=== PATIENT | male | born 1945 | race Caucasian/White ===

== ENCOUNTER 2017-02-26 19:28 | Inpatient (IN) | payer MEDICARE ==
[2017-02-26] MEDS ORDERED: HYDROmorphone 1 MG/ML 1 ML SYRINGE IVP STA (19:46)
--- NOTE | 2017-02-26 19:50 | ED ---
General Adult HPI - General Chief complaint: Fall Stated complaint: Fell, hip injury Source: patient, EMS, RN notes reviewed Mode of arrival: EMS Limitations: no limitations - History of Present Illness Initial comments: Chief complaint history of present illness a 71-year-old male reports that he was climbing down a ladder when he fell from the second rung. He managed to keep his balance for about 10 feet and then fell onto his left hip area. Denies loss of consciousness. No chest pain no other extremity problems just left hip area. Patient is brought emergency room by ambulance alert and oriented - Related Data Home Medications Medication Instructions Recorded Confirmed ALPRAZolam [Xanax] 0.5 mg PO HS 02/26/17 02/26/17 Aspirin EC [Ecotrin Low Dose] 81 mg PO Q48H 02/26/17 02/26/17 Lisinopril-Hctz 20-12.5 mg 1 tab PO DAILY 02/26/17 02/26/17 [Zestoretic 20-12.5] Simvastatin [Zocor] 20 mg PO HS 02/26/17 02/26/17 Tamsulosin HCl [Flomax] 0.4 mg PO BID 02/26/17 02/26/17 Zolpidem [Ambien] 10 mg PO HS 02/26/17 02/26/17 Allergies Allergy/AdvReac Type Severity Reaction Status Date / Time No Known Allergies Allergy Unverified 02/26/17 19:58 Review of Systems ROS Statement: Those systems with pertinent positive or pertinent negative responses have been documented in the HPI. Review of systems patient denies any visual acuity changes no headache no stiff neck no chest pain or shortness of breath approximately is and right lower extremity normal. He has discomfort to the left hip area. No pain to the back. No pain from the mid femur down the left leg. All systems are reviewed. Past medical problems hypertension, diverticulitis, hypercholesterolemia. Surgeries total right knee. Cancers include brain and bone cancer in the family. Nonsmoker. No ALLERGIES. ROS Other: All systems not noted in ROS Statement are negative. Past Medical History Past Medical History: Hypertension Additional Past Medical History / Comment(s): diveticulosis, hyperchoestremia History of Any Multi-Drug Resistant Organisms: None Reported Past Surgical History: Orthopedic Surgery Additional Past Surgical History / Comment(s): tonsils, vasectomy Past Psychological History: No Psychological Hx Reported Smoking Status: Never smoker Past Alcohol Use History: None Reported Past Drug Use History: None Reported General Exam - General Exam Comments Initial Comments: General: The patient is awake and alert, placed on a backboard brought to emergency by EMS. Complains of left hip area pain. Eye: Pupils are equal, round and reactive to light, extra-ocular movements are intact ; there is normal conjunctiva bilaterally. No signs of icterus. Ears, nose, mouth and throat: There are moist mucous membranes and no oral lesions. Neck: The neck is supple, there is no tenderness or JVD. Cardiovascular: There is a regular rate and rhythm. No murmur, rub or gallop is appreciated. Respiratory: Lungs are clear to auscultation, respirations are non-labored, breath sounds are equal. No wheezes, stridor, rales, or rhonchi. Gastrointestinal: Soft, non-distended, non-tender abdomen without masses or organomegaly noted. There is no rebound or guarding present. No CVA tenderness. Bowel sounds are unremarkable. Back: There is no tenderness to palpation in the midline. There is no obvious deformity. No rashes noted. Musculoskeletal: Upper extremities normal back no pain. Right lower extremity normal. The patient has pain to the left hip area. Passive range of motion no pain. When the patient actively tries to abduct his leg it hurts. Neurovascular status to the foot intact. Neurological: CN II-XII intact, There are no obvious motor or sensory deficits. Coordination appears grossly intact. Speech is normal. Skin: Skin is warm and dry and no rashes or lesions are noted. Limitations: no limitations Course Vital Signs 02/26/17 19:34 Temperature 97.8 F Pulse Rate 90 Respiratory 18 Rate Blood Pressure 137/78 O2 Sat by Pulse 95 Oximetry Medical Decision Making - Medical Decision Making Medical decision making; patient had an x-ray of his left hip and pelvis. The left hip shows evidence of a left femoral neck fracture with minimal displacement per Dr. Goldman. Chest x-ray was done and his impression of that is no acute process. As read by Dr. Goldman. The case discussed with Heidi Holder physician's esol teacher assistant on-call for orthostatic she has who the patient uses for orthopedic problems. She states admit the patient to Dr. Jason lópez off, and when necessary after midnight. Stop aspirin products. Request for surgical clearance from Dr. Salas. Nothing by mouth after midnight. Disposition Clinical Impression: Closed left hip fracture Disposition: ADMITTED IP TO THIS HOSP Condition: Stable
--- NOTE | 2017-02-26 20:26 | XR ---
EXAMINATION TYPE: XR chest 1V DATE OF EXAM: 02/26/2017 8:18 PM COMPARISON: Prior chest x-ray 16 September 2010 HISTORY: Pain, fall TECHNIQUE: frontal view of the chest is obtained on 2 images. FINDINGS: There is no focal air space opacity, pleural effusion, or pneumothorax seen. The cardiac silhouette size is within normal limits. Lung volumes are lower. The osseous structures are intact. IMPRESSION: No acute process.
--- NOTE | 2017-02-26 20:27 | XR ---
EXAMINATION TYPE: XR Hip LT and AP Pelvis DATE OF EXAM: 02/26/2017 8:19 PM COMPARISON: CT abdomen pelvis second of February 2014 HISTORY: Trauma and pain TECHNIQUE: A single AP view of the pelvis is obtained. Two views of the left hip are obtained. FINDINGS: There is a transverse fracture through the left femoral neck without significant displaceme nt. No dislocation. Degenerative disc changes in the visualized spine. IMPRESSION: Left femoral neck fracture is not significantly displaced.
[2017-02-26] MEDS ORDERED: NALOXONE 0.4 MG/ML 1 ML VIAL IV PRN (20:37)
[2017-02-26] MEDS ORDERED: ONDANSETRON 4 MG/2 ML VIAL IVP PRN (20:37)
[2017-02-26 21:28] LABS: Basophils # (A) 0.1 k/uL (0-0.2); Basophils % (A) 1 %; CH 33.5; CHCM 33.7; Eosinophils # (A) 0.1 k/uL (0-0.7); Eosinophils % (A) 2 %; HCT 45.2 % (39.0-53.0); HDW 2.47; HGB 14.9 gm/dL (13.0-17.5); Luc # (Auto) 0.16; Luc % (Auto) 2; Lymphocytes % (A) 14 %; MCH 32.9 pg (25.0-35.0); MCV 99.5 fL (80.0-100.0); Mean Platelet Volume 6.7; Monocytes # (A) 0.5 k/uL (0-1.0); Monocytes % (A) 7 %; Neutrophils # (A) 5.1 k/uL (1.3-7.7); Neutrophils % (A) 74 %; RBC 4.54 m/uL (4.30-5.90); RDW 13.4 % (11.5-15.5); WBC 6.9 k/uL (3.8-10.6); WBC (Perox) 7.04
[2017-02-26 21:33] LABS: INR 1.4 (<1.1); Prothrombin Time 13.7 sec (9.0-12.0)
[2017-02-26 21:37] LABS: ALT 48 U/L (21-72); AST 38 U/L (17-59); Alkaline Phosphatase 81 U/L (38-126); Anion Gap 9 mmol/L; Blood Urea Nitrogen 25 mg/dL (9-20); Calcium 8.5 mg/dL (8.4-10.2); Carbon Dioxide 27 mmol/L (22-30); Chloride 110 mmol/L (98-107); Glucose 94 mg/dL (74-99); Non-African American GFR(MDRD) 60 (>60 ml/min/1.73 sqM); Potassium 4.1 mmol/L (3.5-5.1); Sodium 146 mmol/L (137-145); Total Bilirubin 0.6 mg/dL (0.2-1.3); Total Protein 6.1 g/dL (6.3-8.2)
[2017-02-26] MEDS: HYDROmorphone 1 MG/ML 1 ML SYRINGE IV PRN (23:03)
[2017-02-26] MEDS: ALPRAZolam 0.5 MG TAB PO SCH (23:03)
[2017-02-26] MEDS: SODIUM CHLORIDE 0.9% 1,000 ML IV SCH (23:04)
[2017-02-27] MEDS: HYDROmorphone 1 MG/ML 1 ML SYRINGE IV PRN ×4 (03:52→12:39)
--- NOTE | 2017-02-27 08:54 | P.HPOR ---
<Heidi Holder - Last Filed: 02/27/17 08:49> History of Present Illness H&P Date: 02/27/17 Chief Complaint: Left hip fracture This is a 71-year-old male who presents to the emergency department yesterday after falling off a ladder, sustaining injury to his left hip. On exam and x- ray in the emergency department he is found to have a left hip fracture. We're consulted for orthopedic evaluation. He denies head or neck injury. Past Medical History Past Medical History: Hypertension Additional Past Medical History / Comment(s): diveticulosis, hyperchoestremia. gallbladder removal History of Any Multi-Drug Resistant Organisms: None Reported Past Surgical History: Cholecystectomy, Orthopedic Surgery Additional Past Surgical History / Comment(s): tonsils, vasectomy Past Anesthesia/Blood Transfusion Reactions: No Reported Reaction Past Psychological History: No Psychological Hx Reported Smoking Status: Never smoker Past Alcohol Use History: None Reported Past Drug Use History: None Reported - Past Family History Father Family Medical History: Coronary Artery Disease (CAD) Mother Family Medical History: No Reported History Medications and Allergies Home Medications Medication Instructions Recorded Confirmed Type ALPRAZolam [Xanax] 0.5 mg PO HS 02/26/17 02/26/17 History Aspirin EC [Ecotrin Low Dose] 81 mg PO Q48H 02/26/17 02/26/17 History Lisinopril-Hctz 20-12.5 mg 1 tab PO DAILY 02/26/17 02/26/17 History [Zestoretic 20-12.5] Simvastatin [Zocor] 20 mg PO HS 02/26/17 02/26/17 History Tamsulosin HCl [Flomax] 0.4 mg PO BID 02/26/17 02/26/17 History Zolpidem [Ambien] 10 mg PO HS 02/26/17 02/26/17 History Allergies Allergy/AdvReac Type Severity Reaction Status Date / Time No Known Allergies Allergy Unverified 02/26/17 19:58 Physical Examination This is a 71-year-old male in no acute distress. He is alert and oriented 3. His is present at bedside. Exam of the head neck reveal no obvious deformities. He has full cervical spine motion without difficulty or pain. The patient will cervical spine or paraspinal musculature. Exam of the lower extremities reveals no obvious deformity. He is lying on his right side with the hips in flexion. There is pain with any motion of the left hip. He has full foot and ankle motion without difficulty or pain. Neurovascular status to the lower extremities is intact. Results X-rays of the pelvis and left hip reveal a minimally displaced femoral neck fracture. No other fractures identified. - Labs Labs: Abnormal Lab Results - Last 24 Hours (Table) 02/26/17 02/26/17 Range/Units 21:12 21:12 PT 13.7 H (9.0-12.0) sec Sodium 146 H (137-145) mmol/L Chloride 110 H (98-107) mmol/L BUN 25 H (9-20) mg/dL Total Protein 6.1 L (6.3-8.2) g/dL H & H 02/26/17 Range/Units 21:12 Hgb 14.9 (13.0-17.5) gm/dL Hct 45.2 (39.0-53.0) % Coagulation 02/26/17 Range/Units 21:12 INR 1.4 (<1.1) Result Diagrams: 02/26/17 21:12 02/26/17 21:12 Assessment and Plan (1) Fracture of femoral neck, left Status: Acute Plan: The clinical and x-ray findings are discussed the patient. It is recommended that he undergo hemiarthroplasty of the left hip. The procedures been discussed in detail including the possible risks and outcomes of surgery. Risks include bleeding, infection, risk of blood clots and complications associated with anesthesia. After discussion and consideration the patient elects proceed with hemiarthroplasty of the left hip. We are awaiting preoperative clearance by Dr. Salas. I will also asked Dr. Salas to manage anticoagulation postoperatively due to the patient's history of GI bleed after orthopedic surgery. <Laisha Dejesus - Last Filed: 02/27/17 14:37> Physical Examination Osteopathic Statement: *. No significant issues noted on an osteopathic structural exam other than those noted in the History and Physical/Consult. Results - Labs Labs: Abnormal Lab Results - Last 24 Hours (Table) 02/26/17 02/26/17 Range/Units 21:12 21:12 PT 13.7 H (9.0-12.0) sec Sodium 146 H (137-145) mmol/L Chloride 110 H (98-107) mmol/L BUN 25 H (9-20) mg/dL Total Protein 6.1 L (6.3-8.2) g/dL H & H 02/26/17 Range/Units 21:12 Hgb 14.9 (13.0-17.5) gm/dL Hct 45.2 (39.0-53.0) % Coagulation 02/26/17 Range/Units 21:12 INR 1.4 (<1.1) Result Diagrams: 02/26/17 21:12 02/26/17 21:12 Assessment and Plan Plan: The patient is seen and examined today at bedside. I agree with the history and physical as stated above. The patient is not having new complaints other than his left hip today. We discussed the issues with his history of gastric ulcers in the past in terms of his postoperative anticoagulation as well. We discussed the risk of occasions alternatives and benefits of various treatment options is related to his surgery we discussed the risks of bleeding risk of infection risk and need for further surgery risk of decreased loss of motion loss of function hardware failure dislocation heart attack and as well as the fact that surgery may not alleviate his symptoms were explained. The patient is interested in proceeding with surgical intervention with left hip hemiarthroplasty has discussed and a signed informed consent. He's been cleared by medicine service and I discussed the case with them as well.
[2017-02-27] MEDS: SODIUM CHLORIDE 0.9% 1,000 ML IV SCH ×3 (09:44→22:28)
[2017-02-27] MEDS: LISINOPRIL-HCTZ 20-12.5 MG 1 EACH TAB PO SCH (09:46)
[2017-02-27] MEDS: PANTOPRAZOLE 40 MG/10 ML VIAL IV SCH (09:46)
[2017-02-27] MEDS: ENOXAPARIN 40 MG/0.4 ML SYRINGE SQ SCH (10:29)
--- NOTE | 2017-02-27 12:52 | CONS ---
DATE OF CONSULTATION: 02/27/2017 REASON FOR CONSULTATION: Medical management requested Dr. Dejesus. CONSULTATION: This is a very pleasant 71-year-old patient of Dr. Canales. Patient's chronic stable medical conditions include hypertension, diverticulosis, hyperlipidemia, chronic insomnia, and BPH. Patient was working up on the ladder and took of fall, falling on his left side with a fracture of the left femur. Patient was seen by Dr. Dejesus from Orthopedics, due to go down for surgery this afternoon. Patient is rather active, able to get around pretty well. Sometimes get short of breath on walking one or two flight of stairs. No chest pain. Patient is rather active. Patient had a stress test 7 years ago. A cardiac cath about 12 years ago showed about 30% blockage. No further issues then. Otherwise, lying in bed comfortable. REVIEW OF SYSTEMS: CONSTITUTIONAL: None. HEENT: None. RESPIRATORY: None. CARDIOVASCULAR: None. GASTROINTESTINAL: None. GENITOURINARY: BPH symptoms. DERMATOLOGICAL: None. HEMATOLOGICAL: None. LYMPHATICS: None. PSYCHIATRY: None. NEUROLOGICAL: Difficulty sleeping. MUSCULOSKELETAL: Pain in the left hip. Past medical history of hypertension, diverticulosis, hyperlipidemia, insomnia, BPH. PAST SURGICAL HISTORY: Cholecystectomy, orthopedic surgery, tonsillectomy, vasectomy. SOCIAL HISTORY: Does not smoke. Alcohol occasionally. , does real estate. Family history of coronary artery disease. HOME MEDICATIONS: 1. Ambien 10 mg q.h.s. 2. Flomax 0.4 p.o. b.i.d. 3. Zocor 20 mg q.h.s. 4. Zestoretic 25/10.5 one tablet p.o. daily. 5. Aspirin 81 mg q.48 hours. 6. Xanax 0.5 p.o. q.h.s. ALLERGIES: None. On examination, temperature 97, pulse 94, respirations 16, blood pressure 120/73, pulse ox 93% on room air. GENERAL APPEARANCE: Well built, BMI of 33.1, patient is well built, lying in bed, comfortable, not in distress. EYES: Pupils equal. Conjunctivae normal. HEENT: External appearance of nose and ears, oral cavity normal. NECK: JVD unable to assess. Mass not palpable. Respiratory effort normal. LUNGS: Slightly distant breath sounds. CARDIOVASCULAR: First and second sounds normal. No edema. ABDOMEN: Large, soft. Liver and spleen not palpable. LYMPHATICS: No lymph node palpable in neck or axillae. PSYCHIATRY: Alert and oriented x3. Mood and affect normal. NEUROLOGICAL: Pupils equal. Cranial nerves grossly intact. Power and sensation grossly intact. MUSCULOSKELETAL: Limited range of motion on the left leg. INVESTIGATIONS: White count 6.9, hemoglobin 14.9, platelets 186. Potassium 4.1, BUN 25, creatinine 1.20. X-ray of the hip shows left femur fracture. Chest x-ray is an AP film with relative cardiomegaly. There is some venous prominence, but this could be in view of the fact that this is an AP film. ASSESSMENT: 1. Left femur fracture secondary to mechanical fall off the ladder. 2. Essential hypertension. 3. Chronic diverticulosis, asymptomatic. 4. Hyperlipidemia. 5. Chronic insomnia, idiopathic. 6. Benign prostatic hypertrophy. 7. Obesity, body mass index of 33.1. PLAN: Patient had a cardiac cath over 12 years ago, was found to have 30% obstructive disease. Patient has no cardiac symptoms, rather active, hence from a cardiopulmonary standpoint patient has a low risk from surgery, with no absolute contraindications. Patient's medications optimized. Will get a baseline EKG. Patient's home medications can be resumed. Will hold off the aspirin for right now in view of the surgery. Will give subQ Lovenox for DVT prophylaxis and then will determinate about the surgery. Patient getting some IV fluids. Care was discussed with the patient. Questions were answered. Thank you, Dr. Dejesus.
[2017-02-27] MEDS ORDERED: IV FLUID CONTINUATION 1,000 ML IV ONE (15:30)
[2017-02-27 16:27] LABS: INR 1.4 (<1.1); Partial Thromboplastin Time 24.2 sec (22.0-30.0); Prothrombin Time 13.5 sec (9.0-12.0)
[2017-02-27] MEDS ORDERED: KETAMINE 10 MG/ML 20 ML VIAL ONE (16:32)
[2017-02-27] MEDS ORDERED: MORPHINE SULFATE (PF) 0.3 MG/0.3 ML SYR ONE (16:32)
[2017-02-27] MEDS ORDERED: PHENYLEPHRINE-0.9% NACL SYG 1 MG/10 ML SYRINGE ONE (16:32)
[2017-02-27] MEDS ORDERED: fentaNYL (PF) 50 MCG/ML 2 ML AMP ONE (16:32)
[2017-02-27] MEDS ORDERED: diphenhydrAMINE 50 MG/ML 1 ML VIAL ONE (16:32)
[2017-02-27] MEDS ORDERED: MIDAZOLAM 2 MG/2 ML VIAL ONE (16:32)
[2017-02-27] MEDS ORDERED: LACTATED RINGERS 1,000 ML IV ONE ×2 (16:42→18:00)
[2017-02-27] MEDS ORDERED: SODIUM CHLORIDE 0.9% 50 ML with ceFAZolin 2,000 MG IV ONE ×2 (16:42)
[2017-02-27] MEDS ORDERED: ceFAZolin 3,000 MG in SODIUM CHLORIDE 0.9% IRRIGATIO 3,000 ML IRRIGATION ONE (17:22)
[2017-02-27] MEDS ORDERED: DIAZEPAM 5 MG TAB PO PRN (18:38)
[2017-02-27] MEDS ORDERED: NALOXONE 0.4 MG/ML 1 ML VIAL IV PRN ×2 (18:38→19:40)
[2017-02-27] MEDS ORDERED: BENZOCAINE/MENTHOL LOZENG 1 EACH LOZENGE MUCOUS MEM PRN (18:38)
[2017-02-27] MEDS ORDERED: MAGNESIUM HYDROXIDE 2,400 MG/10 ML CUP PO PRN (18:38)
[2017-02-27] MEDS ORDERED: HYDROmorphone 1 MG/ML 1 ML SYRINGE IVP PRN ×2 (18:38)
--- NOTE | 2017-02-27 18:48 | P.OP ---
Date of Procedure: 02/27/17 Preoperative Diagnosis: Left hip femoral neck fracture, acute status post all Postoperative Diagnosis: same Procedure(s) Performed: left hip hemiarthroplasty Anesthesia: spinal Pathology: other Condition: stable Disposition: PACU Description of Procedure: Preoperative diagnosis: Femoral neck fractureleft, acute status post fall Postoperative diagnosis: Same Procedure: leftHip hemiarthroplasty Surgeon: Dr. Anjelica Anderson.: Arvind Underwood who is present that the entire the case persistence during positioning dissection exposure placement of hardware and closure Anesthesia:spinal per Dr. Rodriguez Estimated blood loss:approximately 200 mL Components implanted:[employer] noncemented femoral stem size 4 unipolar with +4 neck and size 55 femoral head Disposition: To recovery room in good stable condition Operative indications The patient sustained a injury and suffered a femoral neck fracture which was displaced and angulated. he was on a ladder and was coming down a ladder and missed the last 2 steps and fell onto his left hip. He denied any chest pain shortness breath or loss consciousness. We were involved in the case in regard to his hip fracture. the fracture had some displacement and evidence of comminution and I did determined different treatment options including conservative management versus surgical fixation or hemiarthroplasty. After evaluation it was determined that they would be a candidate for hip hemiarthroplasty via surgical intervention. This would give them the best chance of mobilization and ambulation. We discussed the range of treatment options from conservative to surgical. we discussed the risks, occasions alternatives and benefits of surgery in relation to his injury. We discussed the risk of bleeding risk of infection risk of need for further surgery risk of decreased loss of motion loss of function change in ambulatory status hardware loosening dislocation possible need for revision was all explained to him all of his questions were answered to best her ability and leg which she can understand. They elected proceed with surgical intervention. We answered their questions to the best of our ability healing which they can understand. They signed an informed consent. Operative summary After obtaining informed consent evaluation by anesthesia, preoperative evaluation and clearance for medical service, the patient was identified and prepped [place] area and the surgical site was markedat the left hip. There brought to the operating room where the given appropriate anesthesia by the anesthesia department in standard fashion without any complications. under sterile technique he had a spinal anesthetic placed in standard fashion without A complications.Once the anesthesia was established we were able to position the patient. There placed in a lateral decubitus position with the operative side up on the left being careful to pad any bony prominences and pressure points and place a excellent roll appropriately. The airway and C-spine was monitored continuously. Once patient was well positioned the left lower extremitylower extremity was prepped and draped in normal standard sterile fashion. An appropriate keystone protocol and timeout was completed and were able to proceed with surgery. A curvilinear incision was established over the greater trochanter. Dissection was taken down to the tensor fascia herman which was split in line with its fibers and extended proximally into the gluteal fibers. A Charnley retractor was established. The trochanteric bursa was inflamed and removed. I was able to then dissect down off the posterior aspect of the greater trochanter taking the piriformis tendon and the posterior capsule in one full-thickness flap and tacking it with suture. This expose the fracture at the femoral neck which was easily identified.there was comminution at the femoral neck and displacement. A guide was used to establish the appropriate femoral neck cut and a bone- cutting saw was used to establish the femoral neck cut and good alignment and good position. All the bony fragments were removed. I was then able to use a corkscrew device to remove the femoral head from the acetabulum. Any loose fragments in the acetabulum were removed. The femoral head was measured for the appropriate size implant and then passed off for pathology. Appropriate retractors were placed and I established a lateral box cut chisel. I then used a starting reamer to establish the femoral canal area I then sequentially broached with sequential reamers. With this we then started to broach with sequential broaches to the appropriate sized to we had good fit and fill. There is no evidence any fracture in the possible femur. With the appropriate size broach of a #4well seated and stable I placed the trial neck and head. A gentle reduction was performed to get good reduction. The hip was taken through a good range of motion and found to be stable in the position of sleep and through a range of motion. It had a good shuck test. We were able to then dislocate the trial prosthesis. The broach was found to remain stable. It was then removed. The wound was copiously irrigated and suctioned dry with pulsatile lavage. The appropriate size femoral stem of a #4 with a +4 neck and a 55 head unipolarwas chosen and positioned and placed in good alignment and good position with excellent fit and fill seated appropriately over the calcar. It was checked and found to be stable. The trunnion was cleaned and dried the femoral head was then positioned over the femoral neck malleted in position checked and found to be stable. The hip prosthesis was then gently reduced back into the acetabulum and found to have excellent position and excellent stability and excellent range of motion with stability. There is no evidence of dislocation or fracture. The wound was copiously irrigated and suctioned dry. We are able to proceed with closure. The piriformis and posterior capsule were reapproximated to the posterior aspect of the greater trochanter with transosseous stitches. The wound was irrigated and suctioned dry. The fascia was closed with #2 Quill for watertight closure. Subcutaneous tissue was irrigated and suctioned dry. Subcu tissues closed with 2-0 Vicryl subcuticular tissue was closed with 30 Quill. Wound is clean and dried and dressed with Dermabond Adaptic 4 x 4's ABDs and tape. Drapes were broken down, the hip was held in stable position, and an abduction pillow was placed. The patient was then transferred back to their hospital bed being careful to maintain the hip and C-spine alignment and airway. Once stable to patient was transferred back to the postanesthesia care unit to be readmitted for pain control and DVT prophylaxis medical management and monitoring and mobilization we will continue follow patient closely throughout their postoperative course.
--- NOTE | 2017-02-27 18:59 | XR ---
EXAMINATION TYPE: XR Hip Complete LT DATE OF EXAM: 02/27/2017 6:53 PM CLINICAL HISTORY: Left hip fracture. TECHNIQUE: Single AP portable view of left hip is obtained immediately postoperatively. COMPARISON: Pelvic and left hip x-ray from yesterday. FINDINGS: Metallic hardware from left hip arthroplasty is seen and appears satisfactory in alignment and position. There is evidence of recent surgery with subcutaneous gas noted laterally. IMPRESSION: Metallic hardware from left hip arthroplasty is satisfactory in position.
[2017-02-27] MEDS ORDERED: KETOROLAC 30 MG/ML 1 ML VIAL IVP PRN (19:40)
[2017-02-27] MEDS ORDERED: diphenhydrAMINE 50 MG/ML 1 ML VIAL IVP PRN (19:40)
[2017-02-27] MEDS ORDERED: ONDANSETRON 4 MG/2 ML VIAL IVP PRN (19:40)
[2017-02-27] MEDS ORDERED: MORPHINE SULFATE 4 MG/ML SYRINGE IVP PRN (19:40)
[2017-02-27 21:14] LABS: Basophils % (A) 0 %; CH 33.1; CHCM 32.8; Eosinophils # (A) 0.2 k/uL (0-0.7); Eosinophils % (A) 2 %; HCT 45.4 % (39.0-53.0); HDW 2.46; Luc # (Auto) 0.16; Luc % (Auto) 2; Lymphocytes # (A) 0.8 k/uL (1.0-4.8); Lymphocytes % (A) 8 %; MCH 33.4 pg (25.0-35.0); MCHC 32.9 g/dL (31.0-37.0); MCV 101.5 fL (80.0-100.0); Macrocytosis Slight; Mean Platelet Volume 6.6; Monocytes # (A) 0.7 k/uL (0-1.0); Monocytes % (A) 7 %; Neutrophils # (A) 8.8 k/uL (1.3-7.7); Neutrophils % (A) 82 %; RBC 4.48 m/uL (4.30-5.90); RDW 13.4 % (11.5-15.5); WBC 10.7 k/uL (3.8-10.6)
[2017-02-27] MEDS: ALPRAZolam 0.5 MG TAB PO SCH (22:22)
[2017-02-27] MEDS: ZOLPIDEM 10 MG TAB PO SCH (22:23)
[2017-02-27] MEDS: TAMSULOSIN 0.4 MG CAP.ER.24H PO SCH (22:27)
[2017-02-27] MEDS: SENNOSIDES-DOCUSATE SODIUM 1 EACH TAB PO SCH (22:27)
[2017-02-27] MEDS: ATORVASTATIN 10 MG TAB PO SCH (22:34)
[2017-02-28] MEDS: ceFAZolin 3 GM in SODIUM CHLORIDE 0.9% 100 ML IVPB SCH ×2 (01:03→09:02)
[2017-02-28] MEDS ORDERED: METOPROLOL TARTRATE 50 MG TAB PO STA (08:02)
[2017-02-28] MEDS: LISINOPRIL-HCTZ 20-12.5 MG 1 EACH TAB PO SCH (08:33)
[2017-02-28] MEDS: SODIUM CHLORIDE 0.9% 1,000 ML IV SCH ×4 (08:33→21:33)
[2017-02-28] MEDS: ENOXAPARIN 40 MG/0.4 ML SYRINGE SQ SCH (08:33)
[2017-02-28] MEDS: TAMSULOSIN 0.4 MG CAP.ER.24H PO SCH ×2 (08:33→21:32)
[2017-02-28] MEDS: ASPIRIN 81 MG CHEW PO SCH (08:33)
[2017-02-28] MEDS: PANTOPRAZOLE 40 MG/10 ML VIAL IV SCH (08:33)
--- NOTE | 2017-02-28 08:46 | P.PN ---
Progress Note - Text 0750 Anesthesia POD 1. Patient is status post attempted vaginal hysterectomy and finally accomplished as a abdominal hysterectomy under general anesthesia with intra-thecal preservative free morphine 300 g. No pruritus, good post-op analgesia, and no headaches or other complications.
--- NOTE | 2017-02-28 08:53 | P.PN ---
Subjective Principal diagnosis: Status post left hip hemiarthroplasty for left femoral neck fracture Patient is a very pleasant 71-year-old male who is seen and examined at bedside for follow-up evaluation after undergoing a left hip hemiarthroplasty performed yesterday, 02/27/2017. According to Dr. Tamez, patient was in atrial fibrillation yesterday during surgical intervention. While on the 3 E. surgical floor, nursing states his atrial fibrillation became uncontrolled. He has since been transferred to care one at [facility] care on the sixth floor. Patient was seen and examined by Dr. Tamez this morning. I have discussed this patient in detail with Dr. Tamze who currently feels the patient is stable. Patient is currently waiting for a cardiac consultation. Patient states he is not experiencing any significant pain in the left hip and that his pain has been well-controlled. He has not eaten postsurgically but is looking forward to eating this morning. He is not experiencing any abdominal pain or discomfort. He states this morning his left hip feels significantly better today than it did prior to surgical intervention. He is pleasant and smiling today. He has no new complaints. He continues to use his abductor pillow. Objective - Vital Signs Vital signs: Vital Signs Temp 97.2 F L 02/28/17 07:00 Pulse 125 H 02/28/17 08:06 Resp 24 02/28/17 08:06 BP 139/88 02/28/17 07:00 Pulse Ox 92 L 02/28/17 08:06 Intake & Output 02/27/17 02/28/17 02/28/17 18:59 06:59 18:59 Intake Total 3214 825 Output Total 450 450 Balance 2764 375 Intake: IV 2651 825 Sodium Chloride 0.9% 1, 825 000 ml @ 75 mls/hr IV . [id number] TALYA Rx#:[id number] Intake, IV Titration 563 Amount Sodium Chloride 0.9% 1, 563 000 ml @ 75 mls/hr IV . [id number] TALYA Rx#:[id number] Oral 0 Output: Urine 200 450 Uretheral ([place]) 450 Estimated Blood Loss 250 Other: Voiding Method Indwelling Catheter Indwelling Catheter Indwelling Catheter - Exam Physical Exam Hip Hemiarthroplasty: Status post surgical day number 1 Patient is examined lying in bed Patient is awake, alert, and oriented 3 Vital signs stable Good chest excursion with deep inspiration and expiration Abdomen soft nontender No signs or symptoms of DVT; no calf pain Lower extremity cuffs in place bilaterally Abductor pillow intact Dressing of the left hip is clean, dry, and intact; no erythema, purulence, or signs of infection Full range of motion of ankles bilaterally Dorsiflexion, plantarflexion, and extensor hallucis longus positive sustained bilaterally Neurovascularly intact bilateral lower extremities Capillary refill less than 2 seconds bilateral lower extremities - Labs CBC & Chem 7: 02/27/17 21:03 02/26/17 21:12 Labs: Abnormal Lab Results - Last 24 Hours (Table) 02/27/17 02/27/17 Range/Units 16:05 21:03 WBC 10.7 H (3.8-10.6) k/uL MCV 101.5 H (80.0-100.0) fL Neutrophils # 8.8 H (1.3-7.7) k/uL Lymphocytes # 0.8 L (1.0-4.8) k/uL PT 13.5 H (9.0-12.0) sec Assessment and Plan (1) S/P hip hemiarthroplasty Status: Acute (2) Atrial fibrillation Status: Acute (3) Closed left hip fracture Status: Acute (4) Fracture of femoral neck, left Status: Acute Plan: Assessment: Status post left hip hemiarthroplasty for left femoral neck fracture Atrial fibrillation Plan: 1. Patient may continue to weight-bear as tolerated on the lower extremity; patient may work with physical therapy to increase mobility and ambulation 2. Continue pain control 3. Abductor pillow to remain in place at all times except while working with therapy 4. Medicine to continue following the patient for their other medical issues; medicine to manage anticoagulation therapy; currently on Lovenox 5. Patient currently waiting for consultation with cardiology for his atrial fibrillation 6. We'll continue to follow the patient 7. Patient will most likely remain in the hospital over the the next day or 2 with possible plans to discharge to rehab facility at the time of discharge once cleared by medicine and cardiology 8. Patient can follow-up with Arvind Dominique PA-C or Dr. Elvin Dejesus at [facility] in 2-3 weeks following discharge Time with Patient: Less than 30
--- NOTE | 2017-02-28 08:53 | P.PN ---
Progress Note - Text 0812 Anesthesia POD 1. Patient is status post left hemiarthroplasty hip under spinal anesthesia with intra-thecal preservative free morphine 300 g. No pruritus, excellent post-op analgesia, and no headache or other complications. Patient was transferred to telemetry this morning presumably is due to his A. fib. He is scheduled for a cardiac workup. It should be noted that he was in atrial fib preoperatively with a well-controlled ventricular response and did quite well perioperatively.
--- NOTE | 2017-02-28 11:03 | P.CRDCN ---
History of Present Illness Consult date: 02/28/17 Requesting physician: Laisha Dejesus Consult reason: atrial fibrillation Chief complaint: Fall History of present illness: This is a pleasant 71-year-old gentleman with history of hypertension , hyperlipidemia, prior GI bleeds, who initially presented to the hospital after experiencing a fall off of a ladder. Patient incurred a left hip fracture for which he underwent surgery yesterday by Dr. Garg. EKG performed before surgery showed atrial fibrillation with a controlled ventricular response , patient continued to be in atrial fibrillation postoperatively, heart rate in the 120s, for this reason he was sent to the telemetry unit for postop monitoring. According to the patient, he has no prior documented history of atrial fibrillation, he does state that on occasion he has noted on his blood pressure cuff at home that his heart was beating irregularly. Patient states he has undergone a heart catheterization approximately 10 years ago which was reported to be normal, he does not follow with a corporate law assistant, his primary care doctor is Dr. Canales. Initial EKG shows atrial fibrillation with a controlled ventricular response, subsequent EKG performed this morning shows atrial fibrillation with mildly rapid ventricular response. At the time of my examination this morning, he continues to be in A. fib ,rate 1 teens to 120s. White blood cell count 10.7, sodium 146, potassium 4.1, BUN 25, creatinine 1.2. Chest x-ray performed on admission did not reveal any acute process. The time of my examination this morning, patient is quite comfortable, denies any palpitations or shortness of breath. Minimal pain in the hip area today. Past Medical History Past Medical History: Hypertension Additional Past Medical History / Comment(s): diveticulosis, hyperchoestremia. gallbladder removal History of Any Multi-Drug Resistant Organisms: None Reported Past Surgical History: Cholecystectomy, Orthopedic Surgery Additional Past Surgical History / Comment(s): tonsils, vasectomy Past Anesthesia/Blood Transfusion Reactions: No Reported Reaction Past Psychological History: No Psychological Hx Reported Smoking Status: Never smoker Past Alcohol Use History: None Reported Past Drug Use History: None Reported - Past Family History Father Family Medical History: Coronary Artery Disease (CAD) Mother Family Medical History: No Reported History Medications and Allergies Home Medications Medication Instructions Recorded Confirmed Type ALPRAZolam [Xanax] 0.5 mg PO HS 02/26/17 02/26/17 History Aspirin EC [Ecotrin Low Dose] 81 mg PO Q48H 02/26/17 02/26/17 History Lisinopril-Hctz 20-12.5 mg 1 tab PO DAILY 02/26/17 02/26/17 History [Zestoretic 20-12.5] Simvastatin [Zocor] 20 mg PO HS 02/26/17 02/26/17 History Tamsulosin HCl [Flomax] 0.4 mg PO BID 02/26/17 02/26/17 History Zolpidem [Ambien] 10 mg PO HS 02/26/17 02/26/17 History Allergies Allergy/AdvReac Type Severity Reaction Status Date / Time No Known Allergies Allergy Unverified 02/26/17 19:58 Physical Exam Vitals: Vital Signs Temp Pulse Pulse Resp BP Pulse Ox 02/28/17 08:06 125 H 24 92 L 02/28/17 08:00 98.1 F 153 H 118 H 24 127/77 94 L 02/28/17 07:40 24 02/28/17 07:00 97.2 F L 133 H 16 139/88 90 L 02/28/17 04:00 92 L 02/28/17 03:00 99.8 F H 16 137/77 92 L 02/28/17 00:40 92 L 02/27/17 22:00 130/68 02/27/17 21:45 116/70 02/27/17 21:30 121/61 02/27/17 21:15 120/58 02/27/17 21:00 126/66 02/27/17 20:45 121/60 02/27/17 20:40 94 L 02/27/17 20:30 129/69 02/27/17 20:15 128/62 02/27/17 20:00 96.9 F L 100 16 135/74 90 L 02/27/17 19:34 86 16 115/65 92 L 02/27/17 19:00 87 18 115/76 96 02/27/17 18:45 85 18 101/70 93 L 02/27/17 18:36 98.1 F 91 14 97/66 100 02/27/17 15:37 98.2 F 99 16 151/95 96 02/27/17 15:31 98.7 F 86 16 137/83 93 L Intake and Output 02/27/17 02/28/17 02/28/17 22:59 06:59 14:59 Intake Total 2876 600 100 Output Total 450 450 Balance 2426 150 100 Intake: IV 2876 600 Sodium Chloride 0.9% 1, 225 600 000 ml @ 75 mls/hr IV . [id number] TALYA Rx#:[id number] Intake, IV Titration 100 Amount ceFAZolin 3 gm In Sodium 100 Chloride 0.9% 100 ml @ 100 mls/hr IVPB Q8HR TALYA Rx#:[id number] Output: Urine 200 450 Uretheral ([place]) 450 Estimated Blood Loss 250 Other: Voiding Method Indwelling Catheter Indwelling Catheter PHYSICAL EXAMINATION: HEENT: Head is atraumatic, normocephalic. Pupils equal, round. Neck is supple. There is no elevated jugular venous pressure. HEART EXAMINATION: Heart S1 and S2 irregularly irregular CHEST EXAMINATION: Lungs are clear to auscultation and precussion. No chest wall tenderness is noted on palpation or with deep breathing. ABDOMEN: Soft, nontender. Bowel sounds are heard. No organomegaly noted. EXTREMITIES: 2+ peripheral pulses with no evidence of peripheral edema and no calf tenderness noted. Dressing to the left hip is clean and dry and intact, abductor pillow in place. NEUROLOGIC patient is awake, alert and oriented -3. . Results 02/27/17 21:03 02/26/17 21:12 Coagulation 02/27/17 Range/Units 16:05 PT 13.5 H (9.0-12.0) sec APTT 24.2 (22.0-30.0) sec CBC 02/27/17 Range/Units 21:03 WBC 10.7 H (3.8-10.6) k/uL RBC 4.48 (4.30-5.90) m/uL Hgb 15.0 (13.0-17.5) gm/dL Hct 45.4 (39.0-53.0) % Plt Count 180 (150-450) k/uL Current Medications Generic Name Dose Route Start Last Admin Trade Name Freq PRN Reason Stop Dose Admin Hydrocodone Bitart/Acetaminophen 1 each 02/27/17 18:38 [place] 5-325 PO Q6HR PRN Pain Scale 1 to 5 Hydrocodone Bitart/Acetaminophen 2 each 02/27/17 18:38 [place] 5-325 PO Q6HR PRN Pain Scale 6 to 10 Alprazolam 0.5 mg 02/26/17 21:00 02/27/17 22:22 Xanax PO Not Given HS [facility] Aspirin 81 mg 02/28/17 09:00 02/28/17 08:33 Aspirin PO 81 mg Q48H TALYA Administration Atorvastatin Calcium 10 mg 02/27/17 21:00 02/27/17 22:34 Lipitor PO 10 mg HS [facility] Administration Benzocaine/Menthol 1 each 02/27/17 18:38 Cepacol Lozenge MUCOUS MEM Q4HR PRN Sore Throat Diazepam 5 mg 02/27/17 18:38 Valium PO QID PRN Anxiety Diphenhydramine HCl 25 mg 02/27/17 19:40 Benadryl IVP 02/28/17 19:41 Q6HR PRN Itching Enoxaparin Sodium 40 mg 02/27/17 10:30 02/28/17 08:33 Lovenox SQ 40 mg DAILY [facility] Administration Lisinopril/HCTZ 1 each 02/27/17 09:00 02/28/17 08:33 Zestoretic 20-12.5 PO 1 each DAILY [facility] Administration Hydromorphone HCl 0.5 mg 02/27/17 18:38 Dilaudid IVP Q4HR PRN Pain Hydromorphone HCl 1 mg 02/27/17 18:38 Dilaudid IVP Q4HR PRN Pain Sodium Chloride 1,000 mls @ 75 mls/hr 02/26/17 20:45 02/27/17 22:28 Saline 0.9% IV 75 mls/hr .[id number] [facility] Administration Sodium Chloride 1,000 mls @ 75 mls/hr 02/27/17 18:45 02/28/17 08:33 Saline 0.9% IV Not Given .[id number] [facility] Ketorolac Tromethamine 15 mg 02/27/17 19:40 Toradol IVP 02/28/17 19:41 Q6HR PRN Breakthrough Pain Magnesium Hydroxide 2,400 mg 02/27/17 18:38 Milk Of Magnesia PO DAILY PRN Constipation Naloxone HCl 0.2 mg 02/27/17 19:40 Narcan IV Q2M PRN Opioid Reversal Ondansetron HCl 4 mg 02/27/17 19:40 Zofran IVP 02/28/17 19:41 Q6HR PRN Nausea And Vomiting Pantoprazole Sodium 40 mg 02/27/17 09:00 02/28/17 08:33 Protonix IV 40 mg DAILY [facility]ALYA Administration Senna/Docusate Sodium 2 each 02/27/17 21:00 02/27/17 22:27 Senokot-S PO 2 each HS [facility]ALYA Administration Tamsulosin HCl 0.4 mg 02/27/17 21:00 02/28/17 08:33 Flomax PO 0.4 mg BID TALYA Administration Zolpidem Tartrate 10 mg 02/27/17 21:00 02/27/17 22:23 Ambien PO Not Given HS TALYA Intake and Output 02/27/17 02/28/17 02/28/17 22:59 06:59 14:59 Intake Total 2876 600 100 Output Total 450 450 Balance 2426 150 100 Intake: IV 2876 600 Sodium Chloride 0.9% 1, 225 600 000 ml @ 75 mls/hr IV . [id number] TALYA Rx#:[id number] Intake, IV Titration 100 Amount ceFAZolin 3 gm In Sodium 100 Chloride 0.9% 100 ml @ 100 mls/hr IVPB Q8HR TALYA Rx#:[id number] Output: Urine 200 450 Uretheral ([place]) 450 Estimated Blood Loss 250 Other: Voiding Method Indwelling Catheter Indwelling Catheter 02/27/17 21:03 02/26/17 21:12 EKG Interpretations (text) EKG shows atrial fibrillation with moderately rapid ventricular response Assessment and Plan Plan: Assessment and plan #1 atrial fibrillation, unsure exactly of duration. Chronic persistent at this time. #2 status post left hip arthroplasty #3 hypertension #4 hyperlipidemia #5 prior GI bleeds, patient was told to have significant diverticulitis Plan We will continue current dose of Lovenox. We will also check to see if the patient has coverage for [employer]. We will start the patient on a beta sukhi. Patient and were educated regarding the importance of anticoagulation for stroke prevention. According to the patient and his , patient did take Coumadin following a hip surgery a couple of years ago, at which time he experienced a significant GI bleed. One year ago, not being on blood thinners, patient apparently again had a GI bleed. We will attempt to get reports of EGD and colonoscopy performed. We will also consult Dr. Sawyer Peres prior to initiating request. Patient and the do understand the risk of GI bleeding being put on an anticoagulant, they also understand the risk of stroke and not being on blood thinners. If the patient is not a candidate for anticoagulation , he may be a candidate for the watchman device. We'll also check the patient' s free T4 and TSH level. DNP note has been reviewed, I agree with a documented findings and plan of care. Patient was seen and examined.
[2017-02-28] MEDS ORDERED: METOPROLOL TARTRATE 25 MG TAB PO SCH (11:15)
[2017-02-28] MEDS: HYDROcodone/APAP 5-325MG 1 EACH TAB PO PRN ×2 (17:41→23:56)
[2017-02-28] MEDS: ZOLPIDEM 10 MG TAB PO SCH (21:20)
[2017-02-28] MEDS: SENNOSIDES-DOCUSATE SODIUM 1 EACH TAB PO SCH (21:32)
[2017-02-28] MEDS: ATORVASTATIN 10 MG TAB PO SCH (21:32)
[2017-02-28] MEDS: ALPRAZolam 0.5 MG TAB PO SCH (21:32)
--- NOTE | 2017-02-28 23:00 | PN ---
DATE OF SERVICE: 02/28/2017 DATE OF ADMISSION: 02/26/2017 PRESENTING COMPLAINT: Fracture of the left femur. INTERVAL HISTORY: This is a pleasant 71-year-old gentleman with a history of hypertension, hyperlipidemia, prior GI bleeds who presented to the hospital after experiencing after a fall off of a ladder. The patient was found to have a fracture of the left hip for which he underwent surgery on 02/27/[address] Dejesus. Prior to surgery, the patient was noted to have atrial fibrillation and was subsequently sent to a telemetry unit for postoperative management. The patient is lying in bed, comfortable. Pain is well controlled. No acute distress noted or voiced. REVIEW OF SYSTEMS: Review of systems done for constitutional, cardiovascular, GI, pulmonary and relevant findings above. Current medications include: 1. [place] 5/325, 1 tab every 6 hours. 2. Xanax 0.5 mg at bedtime. 3. 81-mg aspirin every 48 hours. 4. Atorvastatin calcium 10 mg at bedtime. 5. Diazepam 5 mg 4 times a day for anxiety. 6. Diphenhydramine 25 mg every 6 hours for itching. 7. Enoxaparin sodium 40 mg subcu daily for DVT prophylaxis. 8. Lisinopril/hydrochlorothiazide 1 tab daily. 9. Hydromorphone 0.5 mg IV push every 4 hours for pain. 10. Ketorolac 15 mg IV push every 6 hours for breakthrough pain. On exam, vital signs: Temperature 97.0, pulse 87, respirations 18, blood pressure 103/58, pulse ox 94% on 5L nasal cannula. GENERAL APPEARANCE: Awake, alert, able to answer questions, lying comfortably in bed, not in any distress. EYES: Pupils equal, conjunctivae normal. HEENT: External appearance of the nose, ears and oral cavity normal. NECK: JVD unable to assess. Mass is no palpable. RESPIRATORY: Effort normal. LUNGS: Slightly distant breath sounds. CARDIOVASCULAR: First and second sounds normal, irregular beats noted. No edema. ABDOMEN: Large, soft. Liver and spleen are not palpable. LYMPHATIC: No lymph nodes palpable in the neck or axillae. PSYCHIATRIC: Alert and oriented x3. Mood and affect are normal. MUSCULOSKELETAL: Limited range of motion on the left leg. INVESTIGATIONS: White blood cell count 10.7, hemoglobin 15.0, INR 1.4. Glucose within normal limits. Basic metabolic panel within normal limits. ASSESSMENT: 1. Left femur fracture secondary to mechanical fall off of a ladder, status post open reduction and internal fixation of the left femur. 2. Essential hypertension. 3. Chronic diverticulosis, asymptomatic. 4. Hyperlipidemia. 5. Chronic insomnia, idiopathic. 6. Benign prostatic hypertrophy. 7. Obesity. Body mass index of 33.1. 8. Atrial fibrillation, paroxysmal. Cardiology following. PLAN: The patient had a cardiac cath 12 years ago, had obstructive disease to be about 30%. The patient was found to be in atrial fibrillation and Cardiology was consulted to continue to follow. Will look forward to their recommendations. Will continue subcu Lovenox for DVT prophylaxis. Plan of care discussed with the patient. All questions were answered. I performed a history and physical examination of this patient and discussed the same with the dictator. I agree with the dictator's note. Any additional findings/opinions, etc. will be noted.
[2017-03-01] MEDS: ENOXAPARIN 40 MG/0.4 ML SYRINGE SQ SCH (08:38)
[2017-03-01] MEDS: TAMSULOSIN 0.4 MG CAP.ER.24H PO SCH ×2 (08:38→21:43)
[2017-03-01] MEDS: LISINOPRIL-HCTZ 20-12.5 MG 1 EACH TAB PO SCH (08:38)
[2017-03-01] MEDS: PANTOPRAZOLE 40 MG/10 ML VIAL IV SCH (08:38)
--- NOTE | 2017-03-01 10:07 | ECHOF ---
Referral Reason:afib MEASUREMENTS -------- HEIGHT: 185.4 cm WEIGHT: 120.2 kg BP: 127/77 IVSd: 1.2 cm (0.6 - 1.1) LVIDd: 3.6 cm (3.9 - 5.3) LVPWd: 1.3 cm (0.6 - 1.1) IVSs: 1.6 cm LVIDs: 2.3 cm LVPWs: 2.0 cm Ao Diam: 3.7 cm (2.0 - 3.7) AV Cusp: 2.6 cm (1.5 - 2.6) LA Diam: 4.0 cm (2.7 - 3.8) RAP: 5.00 mmHg RVSP: 15.84 mmHg FINDINGS -------- Atrial fibrillation. This was a technically difficult study with suboptimal views. There is mild concentric left ventricular hypertrophy. Overall left ventricular systolic function is low-normal with, an EF between 50 - 55 %. The right ventricle is normal in size and function. The left atrium is normal in size. The right atrium is normal in size. 1.5mg of Definity was utilized for enhancement of images Aortic valve is trileaflet and is mildly thickened. The mitral valve leaflets are mildly thickened. There is trace mitral regurgitation. Trace tricuspid regurgitation present. The right ventricular systolic pressure, as measured by Doppler, is 15.84mmHg. Pulmonic valve appears structurally normal. The aortic root size is normal. The pericardium is normal. CONCLUSIONS -------- 1. Atrial fibrillation. 2. The mitral valve leaflets are mildly thickened. 3. There is trace mitral regurgitation. 4. Trace tricuspid regurgitation present. 5. The right ventricular systolic pressure, as measured by Doppler, is 15.84mmHg. 6. Pulmonic valve appears structurally normal. 7. The aortic root size is normal. 8. The pericardium is normal. 9. This was a technically difficult study with suboptimal views. 10. There is mild concentric left ventricular hypertrophy. 11. Overall left ventricular systolic function is low-normal with, an EF between 50 - 55 %. 12. The right ventricle is normal in size and function. 13. The left atrium is normal in size. 14. The right atrium is normal in size. 15. 1.5mg of Definity was utilized for enhancement of images 16. Aortic valve is trileaflet and is mildly thickened. [employer] DECORATING MACHINE OPERATOR: Heidi Albert RDCS
[2017-03-01] MEDS: HYDROcodone/APAP 5-325MG 1 EACH TAB PO PRN ×2 (11:35→19:47)
[2017-03-01] MEDS: SODIUM CHLORIDE 0.9% 1,000 ML IV SCH ×2 (11:36)
--- NOTE | 2017-03-01 12:12 | P.CONS ---
History of Present Illness - Reason for Consult Consult date: 03/01/17 History of GI bleed. Need for anticoagulation Requesting physician: Sunitha Aguero - History of Present Illness 71-year-old male with a history of extensive colonic diverticular disease with lower GI bleeding secondary to anticoagulation, retention, hyperlipidemia, and cholecystectomy. Patient is status post left hip surgery, after falling off a ladder. He subsequently developed atrial fibrillation postoperatively with RVR. Cardiology service has evaluated patient and is advising anti-platelet therapy. Consultation requested for antiplatelet/anticoagulation advisement with history of lower GI bleeds. Patient has had at least 2 severe lower GI bleeds felt to be diverticular in nature while on anticoagulation after undergoing orthopedic surgery. He was on Coumadin in the past (few years ago) after knee surgery performed by Dr. Marin and developed a severe lower GI bleed 30 days after surgery. He has been evaluated by Dr. Jasso retired surgeon 2012 regarding subtotal colectomy secondary to an uncontrolled diverticular bleed at the time. Last colonoscopy of record performed by Dr. Jasso was in 2012 with findings of extensive diverticulosis coli in the sigmoid. Patient thought colonoscopies may have been performed by Drs. Galindo/Ja. However, GI office was called and there are no records of such procedures performed by the GI physicians. Presently patient is not expressing hematemesis, hematochezia, or melena. Hemoglobin 15, INR 1.4. Platelet 180. Review of Systems RConstitutional: Denies fever, chills, sweats, weight gain, or loss. HEENT: Negative for migraines, blurred vision or loss, earaches, drainage, tinnitus, oral mucosal lesions, dysphagia, or odynophagia. Cardiac: Hypertension. Hyperlipidemia. Negative for chest pain, arrhythmias, or palpitation. Respiratory: Negative for shortness of breath, hemoptysis, cough, or sputum production. Gastrointestinal: See HPI for pertinent findings. Genitourinary: Negative for hematuria, urgency, frequency, polyuria, dysuria, or penile discharge. Musculoskeletal: Osteoarthritis. Negative for muscle aches, swelling, arthritis , and arthralgias. Neurologic: Negative for stroke or TIA. Endocrine: Negative for thyroid problems. Skin: Negative for rash or itching. Psychiatric: Negative history for depression and anxietye Past Medical History Past Medical History: Hypertension Additional Past Medical History / Comment(s): diveticulosis, hyperchoestremia. gallbladder removal History of Any Multi-Drug Resistant Organisms: None Reported Past Surgical History: Cholecystectomy, Orthopedic Surgery Additional Past Surgical History / Comment(s): tonsils, vasectomy Past Anesthesia/Blood Transfusion Reactions: No Reported Reaction Past Psychological History: No Psychological Hx Reported Smoking Status: Never smoker Past Alcohol Use History: None Reported Past Drug Use History: None Reported - Past Family History Father Family Medical History: Coronary Artery Disease (CAD) Mother Family Medical History: No Reported History Medications and Allergies Home Medications Medication Instructions Recorded Confirmed Type ALPRAZolam [Xanax] 0.5 mg PO HS 02/26/17 02/26/17 History Aspirin EC [Ecotrin Low Dose] 81 mg PO Q48H 02/26/17 02/26/17 History Lisinopril-Hctz 20-12.5 mg 1 tab PO DAILY 02/26/17 02/26/17 History [Zestoretic 20-12.5] Simvastatin [Zocor] 20 mg PO HS 02/26/17 02/26/17 History Tamsulosin HCl [Flomax] 0.4 mg PO BID 02/26/17 02/26/17 History Zolpidem [Ambien] 10 mg PO HS 02/26/17 02/26/17 History Allergies Allergy/AdvReac Type Severity Reaction Status Date / Time No Known Allergies Allergy Unverified 02/26/17 19:58 Physical Exam Vitals: Vital Signs Temp Pulse Resp BP Pulse Ox 03/01/17 11:32 100 18 108/68 94 L 03/01/17 08:00 97.3 F L 89 18 107/58 92 L 03/01/17 04:00 97.6 F 88 18 105/54 96 02/28/17 23:44 95 18 110/58 95 02/28/17 23:42 87 18 02/28/17 20:00 97.4 F L 87 18 90/50 95 02/28/17 16:00 97.0 F L 95 18 87/47 94 L 02/28/17 12:00 97.0 F L 87 18 103/58 94 L Intake and Output 02/28/17 03/01/17 03/01/17 22:59 06:59 14:59 Intake Total 460 900 420 Output Total 500 550 0 Balance -40 350 420 Intake: IV 900 300 Sodium Chloride 0.9% 1, 900 300 000 ml @ 75 mls/hr IV . [id number] [facility] Rx#:[id number] Intake, IV Titration 100 Amount ceFAZolin 3 gm In Sodium 100 Chloride 0.9% 100 ml @ 100 mls/hr IVPB Q8HR [facility] Rx#:[id number] Oral 360 120 Output: Urine 500 550 0 Uretheral (Prado) 550 Other: Voiding Method Indwelling Catheter Indwelling Catheter Indwelling Catheter # Voids 1 # Bowel Movements 1 Weight 126.5 kg General appearance: The patient is alert, oriented, in no acute distress. HET: Head is normocephalic and atraumatic. Pupils are equal and reactive. Oropharynx is clear without lesions. Neck: Supple without lymphadenopathy. Trachea midline. Heart: S1 S2. Regular rate and rhythm. Lungs: No crackles or wheezes are heard. Abdomen: Soft, nontender, nondistended with bowel sounds. No peritoneal signs. No palpable organomegaly or masses. Extremities: Left hip dressing clean, dry and intact. Abductor pillow in place. Normal skin color and turgor. No cyanosis, rash, ulceration, clubbing, or edema. Radial and pedal pulses are 2/4 bilaterally. Neurological: No focal deficits. Strength and sensation are grossly intact. Results CBC & Chem 7: 02/27/17 21:03 02/26/17 21:12 Assessment and Plan (1) Diverticulosis of colon Narrative/Plan: History of extensive diverticulosis of the colon, resulting in history of multiple GI bleeds while on anticoagulation. Status: Chronic (2) Atrial fibrillation Status: Acute (3) S/P hip hemiarthroplasty Status: Acute Plan: 1. From a GI standpoint, patient is at a moderate to high risk for GI bleeding while on anticoagulation/antiplatlet therapy. He has a history of anticoagulation usage that has resulted in development of severe lower GI bleeds assumed to be diverticular in nature twice in the past. He has been evaluated by Dr. Jasso 2013 with recommendation for total colectomy if uncontrolled diverticular bleeding recurs. We will defer to medicine and cardiology for their recommendations of management of his atrial fibrillation. If this does require antiplatelet/anticoagulation recommend proceed with caution as long as the patient understands the risk and benefits of the proposed therapy versus the risk of GI bleeding. Thank you for this kind referral and the opportunity to participate in the care of your patient. This consultation was discussed with Dr. Galindo. The impression and plan of care have been directed as dictated.
--- NOTE | 2017-03-01 12:26 | P.PN ---
Subjective Principal diagnosis: Status post left hip hemiarthroplasty for left femoral neck fracture Patient is a very pleasant 71-year-old male who is seen and examined at bedside for follow-up evaluation after undergoing a left hip hemiarthroplasty performed 02/27/2017. Being seen examined yesterday, patient has continued to be in selective care. Patient continues to be seen by cardiology and medicine. He has not had significant change since being seen and examined yesterday. Nursing states medicine is trying to determine the appropriate anticoagulation therapy at discharge. Patient is currently planned to be discharged to [facility] discharge. Patient has been working with physical therapy to increase mobility and ambulation. He has been applying approximately 50% weight-bear on the left lower extremity. He has been ambulating slowly and is using a walker to aid in ambulation. Patient states again today he is not experiencing any significant pain in the left hip and that his pain has been well-controlled. He does have some exacerbation of left hip pain during ambulation. He has been eating without difficulty. He is not expressing any abdominal pain or discomfort. His Prado catheter remains intact but will plan to be discontinued today. He states this morning his left hip feels significantly better today than it did prior to surgical intervention. He is pleasant and smiling today. He has no new complaints. He continues to use his abductor pillow. Objective - Vital Signs Vital signs: Vital Signs Temp 97.3 F L 03/01/17 08:00 Pulse 100 03/01/17 11:32 Resp 18 03/01/17 11:32 BP 108/68 03/01/17 11:32 Pulse Ox 94 L 03/01/17 11:32 Intake & Output 02/28/17 03/01/17 03/01/17 18:59 06:59 18:59 Intake Total 680 900 420 Output Total 500 550 0 Balance 180 350 420 Weight 126.5 kg Intake: IV 900 300 Sodium Chloride 0.9% 1, 900 300 000 ml @ 75 mls/hr IV . [id number] [facility] Rx#:[id number] Intake, IV Titration 200 Amount ceFAZolin 3 gm In Sodium 200 Chloride 0.9% 100 ml @ 100 mls/hr IVPB Q8HR [facility] Rx#:[id number] Oral 480 120 Output: Urine 500 550 0 Uretheral (Prado) 550 Other: Voiding Method Indwelling Catheter Indwelling Catheter Indwelling Catheter # Voids 1 # Bowel Movements 1 - Exam Physical Exam Hip Hemiarthroplasty: Status post surgical day number 2 Patient is examined lying in bed Patient is awake, alert, and oriented 3 Vital signs stable Good chest excursion with deep inspiration and expiration Abdomen soft nontender No signs or symptoms of DVT; no calf pain Lower extremity cuffs in place bilaterally Abductor pillow intact Dressing of the left hip is clean, dry, and intact; no erythema, purulence, or signs of infection Full range of motion of ankles bilaterally Dorsiflexion, plantarflexion, and extensor hallucis longus positive sustained bilaterally Neurovascularly intact bilateral lower extremities Capillary refill less than 2 seconds bilateral lower extremities Prado catheter and intact - Labs CBC & Chem 7: 02/27/17 21:03 02/26/17 21:12 Assessment and Plan (1) S/P hip hemiarthroplasty Status: Acute (2) Atrial fibrillation Status: Acute (3) Closed left hip fracture Status: Acute (4) Fracture of femoral neck, left Status: Acute Plan: Assessment: Status post left hip hemiarthroplasty for left femoral neck fracture Atrial fibrillation Plan: 1. Patient may continue to weight-bear with approximately 50% weight as tolerated on the lower extremity; patient may work with physical therapy to increase mobility and ambulation 2. Plan to discontinue the Prado catheter today after increasing ambulation and mobility 3. Continue pain control 4. Abductor pillow to remain in place at all times except while working with therapy 5. Medicine to continue following the patient for their other medical issues; medicine to manage anticoagulation therapy; currently on Lovenox 6. Cardiology will continue to follow the patient for his atrial fibrillation 7. We'll continue to follow the patient; If the patient continues to progress, we'll currently plan for him to be discharged tomorrow to [facility] once cleared by medicine and cardiology. 8. Patient can follow-up with Arvind Dominique PA-C or Dr. Elvin Dejesus at [facility] in 2-3 weeks following discharge Time with Patient: Less than 30
--- NOTE | 2017-03-01 14:49 | P.PN ---
Progress Note - Text Postoperative day #2 Patient is seen and examined today at bedside. The patient has some pain around the surgical site as expected. Pain is being controlled with medication. He is starting to mobilize better. He has had a bowel movement today. He is voiding freely with his Prado discontinued today. He says he feels he'll likely starting a corner to some degree and feels somewhat better today. She denies any chest pain or shortness of breath. Physical Exam Afebrile with stable vital signs Abdomen is soft nontender. Chest has good excursion deep and space expiration The incision site is clean dry and intact. No erythema there is no purulence. His thigh and calf are soft and nontender. Extremities have not had neurologic change from prior to surgery. Calves and thighs were soft nontender without evidence of DVT. Assessment/Plan Postoperative day #2 status post left hip hemiarthroplasty for his femoral neck femur fracture Patient is progressing as expected from the surgery. He has atrial fibrillation and is on monitoring for this he is being followed closely with medicine and cardiology. He has history of gastric bleeding and with his atrial fibrillation and history of gastric bleeding and new surgery of hemiarthroplasty he will need to anticoagulate coagulation which will be managed by cardiology and medicine. We will continue to increase the patient's mobilization with therapy. He should remain partial weightbearing on left lower extremity. We will continue pain control with oral or IV medications. He will likely be discharged to rehab tomorrow. We'll continue to follow patient closely.
--- NOTE | 2017-03-01 15:51 | P.PN ---
Subjective Principal diagnosis: Left hip fracture, atrial fibrillation This is a pleasant 71-year-old gentleman with history of hypertension , hyperlipidemia, prior GI bleeds, who initially presented to the hospital after experiencing a fall off of a ladder. Patient incurred a left hip fracture for which he underwent surgery yesterday by Dr. Garg. EKG performed before surgery showed atrial fibrillation with a controlled ventricular response , patient continued to be in atrial fibrillation postoperatively, heart rate in the 120s, for this reason he was sent to the telemetry unit for postop monitoring. According to the patient, he has no prior documented history of atrial fibrillation, he does state that on occasion he has noted on his blood pressure cuff at home that his heart was beating irregularly. Patient states he has undergone a heart catheterization approximately 10 years ago which was reported to be normal, he does not follow with a gantry crane operator, his primary care doctor is Dr. Canales. Initial EKG shows atrial fibrillation with a controlled ventricular response, subsequent EKG performed this morning shows atrial fibrillation with mildly rapid ventricular response. He should had been on Lopressor 25 mg one tablet by mouth twice a day which was discontinued today. He was given a one-time dose of 50 mg of Lopressor, blood pressure went significantly low and for this reason his twice a day dose of Lopressor was held. This afternoon his heart rate was noted again to be up in the 120s and the Lopressor was resumed. We will continue the Lopressor 25 mg one tablet by mouth twice a day, also we will digitalize the patient. Patient was seen by GI service, a long discussion was made with the patient and his by Dr. Aguero. Patient is not a good candidate for anticoagulation because of the significant history of GI bleeding. For this reason, atrial appendage closure by watchman device was recommended to the patient. Dr. Aguero will speak with the gantry crane operator who does this procedure and further recommendations will be made. Patient and his are willing to undergo this procedure. Objective - Vital Signs Vital signs: Vital Signs Temp 97.3 F L 03/01/17 08:00 Pulse 100 03/01/17 11:32 Resp 18 03/01/17 14:38 BP 108/68 03/01/17 11:32 Pulse Ox 94 L 03/01/17 11:32 Intake & Output 02/28/17 03/01/17 03/01/17 18:59 06:59 18:59 Intake Total 680 900 660 Output Total 500 550 400 Balance 180 350 260 Weight 126.5 kg Intake: IV 900 300 Sodium Chloride 0.9% 1, 900 300 000 ml @ 75 mls/hr IV . [id number] [facility] Rx#:[id number] Intake, IV Titration 200 Amount ceFAZolin 3 gm In Sodium 200 Chloride 0.9% 100 ml @ 100 mls/hr IVPB Q8HR [facility] Rx#:[id number] Oral 480 360 Output: Urine 500 550 400 Uretheral (Prado) 550 Other: Voiding Method Indwelling Catheter Indwelling Catheter Indwelling Catheter # Voids 1 1 # Bowel Movements 1 - Exam PHYSICAL EXAMINATION: HEENT: Head is atraumatic, normocephalic. Pupils equal, round. Neck is supple. There is no elevated jugular venous pressure. HEART EXAMINATION: Heart S1 and S2 irregularly irregular CHEST EXAMINATION: Lungs are clear to auscultation and precussion. No chest wall tenderness is noted on palpation or with deep breathing. ABDOMEN: Soft, nontender. Bowel sounds are heard. No organomegaly noted. EXTREMITIES: 2+ peripheral pulses with no evidence of peripheral edema and no calf tenderness noted. Dressing to the left hip is clean and dry and intact, abductor pillow in place. NEUROLOGIC patient is awake, alert and oriented -3. - Labs CBC & Chem 7: 02/27/17 21:03 02/26/17 21:12 Assessment and Plan Plan: Assessment and plan #1 atrial fibrillation, unsure exactly of duration. Chronic persistent at this time. #2 status post left hip arthroplasty #3 hypertension #4 hyperlipidemia #5 prior GI bleeds, patient was told to have significant diverticulitis Plan EchoCardio gram with Doppler study was performed which revealed an ejection fraction of 50-55%. Patient will be given 2 doses of IV Lanoxin and started on oral Lanoxin from tomorrow. We will continue Lopressor 25 mg one tablet by mouth twice a day. Patient is not felt to be a candidate for anticoagulation because of significant GI bleeding. Dr. zaire Conner will speak with her gantry crane operator at [facility] [place] regarding atrial appendage closure by watchman device. Further recommendations to follow. DNP note has been reviewed, I agree with a documented findings and plan of care. Patient was seen and examined.
[2017-03-01] MEDS: DIGOXIN 250 MCG/ML 2 ML AMP IVP SCH (17:41)
--- NOTE | 2017-03-01 19:27 | PN ---
DATE OF SERVICE: 03/01/2017 PRESENTING COMPLAINT: Fracture of the left femur. INTERVAL HISTORY: This is a 71-year-old gentleman who experienced a fall from a ladder. Patient was subsequently found to have a fracture of the left hip, for which he underwent surgery on 02/27/[address] Dejesus. Prior to surgery, patient was found to have atrial fibrillation and postoperatively was sent to a telemetry unit for management. Today the patient is lying in bed comfortable. Pain is well controlled. No acute distress noted or voiced. Review of systems is done for constitutional, cardiovascular, GI, pulmonary; relevant findings as above. CURRENT MEDICATIONS: 1. [place]. 2. Xanax. 3. Aspirin. 4. Atorvastatin. 5. Diazepam. 6. Diphenhydramine. 7. Enoxaparin. 8. Lisinopril/hydrochlorothiazide. 9. Hydromorphone. 10. Ketorolac with Lanoxin being started IV push for 2 doses. P.o. will be started tomorrow morning, 03/02. PHYSICAL EXAMINATION: VITAL SIGNS: Temperature 97.8, pulse 98, respirations 18, blood pressure 118/73, oxygen saturation 98% on 4 L nasal cannula. GENERAL APPEARANCE: Patient is awake, alert, able to answer questions, lying comfortably in bed, not in any distress. EYES: Pupils equal. Conjunctivae normal. NECK: JVD unable to assess. Mass is not palpable. RESPIRATORY: Effort normal. LUNGS: Slightly distant breath sounds. CARDIOVASCULAR: S1, S2 normal. Irregular beats noted. No edema. ABDOMEN: Large, soft. Liver and spleen are not palpable. PSYCHIATRIC: Alert and oriented x3. Mood and affect are normal. MUSCULOSKELETAL: Limited range of motion on the left leg. INVESTIGATIONS: Echocardiogram with Doppler performed on 02/28 showed EF 50% to 55%. White blood cell count 10.7. INR 1.4. ASSESSMENT: 1. Left femur fracture secondary to mechanical fall off of a ladder, status post open reduction, internal fixation of the left femur. 2. Essential hypertension. 3. Chronic diverticulosis, asymptomatic. 4. Hyperlipidemia. 5. Chronic insomnia, idiopathic. 6. Benign prostatic hypertrophy. 7. Obesity; body mass index of 33.1. 8. Atrial fibrillation, paroxysmal. Cardiology following. PLAN: Patient had a cardiac catheterization 12 years ago; had obstructive disease about 30%. Patient was found to be in atrial fibrillation and Cardiology was consulted and will continue to follow. Per their note, Lanoxin to be started today, 03/01/17. Two IV push doses with p.o. to begin tomorrow. Anticoagulation has been addressed by them as well. Patient has a long-standing history of severe GI bleeding while on anticoagulation; therefore, the decision has been made not to anticoagulate the patient at this time. Will continue subcutaneous Lovenox for DVT prophylaxis. Plan of care was discussed with the patient. All questions were answered. A history and physical was performed on the patient by me/nurse practitioner and the attending/Dr. Salas. The relevant points of the history/physical/diagnoses/plan were discussed and are as dictated above.
[2017-03-01 19:40] LABS: Basophils % (A) 0 %; CH 33.4; CHCM 34.5; Eosinophils # (A) 0.2 k/uL (0-0.7); Eosinophils % (A) 3 %; HCT 37.8 % (39.0-53.0); HDW 2.74; Luc # (Auto) 0.27; Luc % (Auto) 3; Lymphocytes # (A) 0.7 k/uL (1.0-4.8); Lymphocytes % (A) 8 %; MCH 33.4 pg (25.0-35.0); MCHC 34.5 g/dL (31.0-37.0); Mean Platelet Volume 7.8; Monocytes # (A) 0.6 k/uL (0-1.0); Monocytes % (A) 7 %; Neutrophils # (A) 7.2 k/uL (1.3-7.7); Neutrophils % (A) 80 %; RBC 3.89 m/uL (4.30-5.90); RDW 13.2 % (11.5-15.5); WBC 9.1 k/uL (3.8-10.6); WBC (Perox) 9.48
--- NOTE | 2017-03-01 21:08 | PN ---
DATE OF SERVICE: 02/28/2017 ADDENDUM: This patient was seen and examined by me. The patient was also seen and examined by nurse practitioner Ms. Zavala. The relevant points of the history, physical, diagnoses and plan were discussed with the nurse practitioner and are as dictated in her note.
[2017-03-01] MEDS: ZOLPIDEM 10 MG TAB PO SCH (21:42)
[2017-03-01] MEDS: ALPRAZolam 0.5 MG TAB PO SCH (21:42)
[2017-03-01] MEDS: ATORVASTATIN 10 MG TAB PO SCH (21:43)
[2017-03-01] MEDS: METOPROLOL TARTRATE 25 MG TAB PO SCH (21:44)
[2017-03-01] MEDS: SENNOSIDES-DOCUSATE SODIUM 1 EACH TAB PO SCH (21:44)
[2017-03-02] MEDS: DIGOXIN 250 MCG/ML 2 ML AMP IVP SCH (01:11)
[2017-03-02] MEDS: SODIUM CHLORIDE 0.9% 1,000 ML IV SCH ×3 (01:11→15:19)
[2017-03-02 06:38] LABS: CH 33.5; HDW 2.63; HGB 13.2 gm/dL (13.0-17.5); MCH 33.4 pg (25.0-35.0); MCHC 33.8 g/dL (31.0-37.0); MCV 98.9 fL (80.0-100.0); Mean Platelet Volume 7.5; RBC 3.95 m/uL (4.30-5.90); RDW 13.6 % (11.5-15.5); WBC 9.2 k/uL (3.8-10.6)
[2017-03-02 06:44] LABS: Anion Gap 8 mmol/L; Blood Urea Nitrogen 28 mg/dL (9-20); Calcium 7.9 mg/dL (8.4-10.2); Carbon Dioxide 23 mmol/L (22-30); Chloride 106 mmol/L (98-107); Glucose 100 mg/dL (74-99); Non-African American GFR(MDRD) >60 (>60 ml/min/1.73 sqM); Potassium 4.2 mmol/L (3.5-5.1); Sodium 137 mmol/L (137-145)
--- NOTE | 2017-03-02 09:43 | XR ---
EXAMINATION TYPE: XR chest 2V DATE OF EXAM: 03/02/2017 9:18 AM COMPARISON: 02/26/2017 HISTORY: 71 year-old male shortness of breath TECHNIQUE: Frontal and lateral views FINDINGS: The heart is upper limits of normal in size. Low lung volumes with crowded vascular markings and stra ndy opacities in the lower lungs, likely atelectasis. No pleural effusion. IMPRESSION: Opacities in the lower lungs are suspected to represent atelectasis from hypoventilatory changes. Fol low-up as indicated.
[2017-03-02] MEDS: ENOXAPARIN 40 MG/0.4 ML SYRINGE SQ SCH (09:57)
[2017-03-02] MEDS: METOPROLOL TARTRATE 25 MG TAB PO SCH ×2 (09:57→20:27)
[2017-03-02] MEDS: ASPIRIN 81 MG CHEW PO SCH (09:57)
[2017-03-02] MEDS: PANTOPRAZOLE 40 MG/10 ML VIAL IV SCH (09:57)
[2017-03-02] MEDS: LISINOPRIL-HCTZ 20-12.5 MG 1 EACH TAB PO SCH (09:57)
[2017-03-02] MEDS: DIGOXIN 125 MCG TAB PO SCH (09:57)
[2017-03-02] MEDS: TAMSULOSIN 0.4 MG CAP.ER.24H PO SCH (09:58)
[2017-03-02] MEDS: FUROSEMIDE 10 MG/ML 4 ML VIAL IV SCH ×2 (12:51→20:27)
--- NOTE | 2017-03-02 15:15 | P.PN ---
Subjective Principal diagnosis: Left hip fracture, atrial fibrillation This is a pleasant 71-year-old gentleman with history of hypertension , hyperlipidemia, prior GI bleeds, who initially presented to the hospital after experiencing a fall off of a ladder. Patient incurred a left hip fracture for which he underwent surgery yesterday by Dr. Garg. EKG performed before surgery showed atrial fibrillation with a controlled ventricular response , patient continued to be in atrial fibrillation postoperatively, heart rate in the 120s, for this reason he was sent to the telemetry unit for postop monitoring. According to the patient, he has no prior documented history of atrial fibrillation, he does state that on occasion he has noted on his blood pressure cuff at home that his heart was beating irregularly. Patient states he has undergone a heart catheterization approximately 10 years ago which was reported to be normal, he does not follow with a herb counselor, his primary care doctor is Dr. Canales. Initial EKG shows atrial fibrillation with a controlled ventricular response, subsequent EKG performed this morning shows atrial fibrillation with mildly rapid ventricular response. Patient did have a couple episodes of loose stools. Dr. Aguero did speak with the herb counselor at [place] today regarding atrial appendage closure device. If the patient has a procedure he will need to be on Coumadin for 45 days following the procedure. Then he will be placed on aspirin and Plavix and ultimately just aspirin. This was discussed in detail with the patient and his and they are willing to proceed. He will be discharged to rehab, and an outpatient appointment will be made with Dr. Toro at [place]. The patient would actually like to start Coumadin now to see whether he tolerates it . She did have an episode of shortness of breath through the night, lasted approximately 3 hours in duration. Chest x-ray performed today she did reveal some mild congestive heart failure. Patient was initiated on IV Lasix today. Objective - Vital Signs Vital signs: Vital Signs Temp 97.9 F 03/02/17 12:00 Pulse 93 03/02/17 12:00 Resp 18 03/02/17 12:00 BP 128/82 03/02/17 12:00 Pulse Ox 92 L 03/02/17 12:00 Intake & Output 03/01/17 03/02/17 03/02/17 18:59 06:59 18:59 Intake Total 660 1140 416 Output Total 400 50 301 Balance 260 1090 115 Weight 123.2 kg Intake: IV 300 900 Sodium Chloride 0.9% 1, 300 900 000 ml @ 75 mls/hr IV . [id number] [facility] Rx#:[id number] Oral 360 240 416 Output: Urine 400 50 300 Urine/Stool Mix 1 Other: Voiding Method Indwelling Catheter Urinal Urinal # Voids 1 - Exam PHYSICAL EXAMINATION: HEENT: Head is atraumatic, normocephalic. Pupils equal, round. Neck is supple. There is no elevated jugular venous pressure. HEART EXAMINATION: Heart S1 and S2 irregularly irregular CHEST EXAMINATION: Lungs are clear to auscultation and precussion. No chest wall tenderness is noted on palpation or with deep breathing. ABDOMEN: Soft, nontender. Bowel sounds are heard. No organomegaly noted. EXTREMITIES: 2+ peripheral pulses with no evidence of peripheral edema and no calf tenderness noted. Dressing to the left hip is clean and dry and intact, abductor pillow in place. NEUROLOGIC patient is awake, alert and oriented -3. - Labs CBC & Chem 7: 03/02/17 06:13 03/02/17 06:09 Labs: Abnormal Lab Results - Last 24 Hours (Table) 03/01/17 03/02/17 03/02/17 Range/Units 19:20 06:09 06:13 RBC 3.89 L 3.95 L (4.30-5.90) m/uL Hct 37.8 L (39.0-53.0) % Lymphocytes # 0.7 L (1.0-4.8) k/uL BUN 28 H (9-20) mg/dL Glucose 100 H (74-99) mg/dL Calcium 7.9 L (8.4-10.2) mg/dL Assessment and Plan Plan: Assessment and plan #1 atrial fibrillation, unsure exactly of duration. Chronic persistent at this time. #2 status post left hip arthroplasty #3 hypertension #4 hyperlipidemia #5 prior GI bleeds, patient was told to have significant diverticulitis Plan Patient will be started on Coumadin today. He will have an appointment with Dr. Toro at [place] post discharge, to discuss atrial appendage closure device. Watchman device). We will start the patient on some IV Lasix. Check lytes BUN and creatinine in the morning. Patient will be transferred to rehab tomorrow. DNP note has been reviewed, I agree with a documented findings and plan of care. Patient was seen and examined.
[2017-03-02] MEDS ORDERED: WARFARIN 5 MG TAB PO ONE (18:00)
[2017-03-02] MEDS: ATORVASTATIN 10 MG TAB PO SCH (20:27)
[2017-03-02] MEDS: SENNOSIDES-DOCUSATE SODIUM 1 EACH TAB PO SCH (20:27)
[2017-03-02] MEDS ORDERED: TAMSULOSIN 0.4 MG CAP.ER.24H PO SCH (21:00)
[2017-03-02] MEDS: ZOLPIDEM 10 MG TAB PO SCH (23:03)
[2017-03-02] MEDS: ALPRAZolam 0.5 MG TAB PO SCH (23:03)
[2017-03-03] MEDS: SODIUM CHLORIDE 0.9% 1,000 ML IV SCH (06:02)
[2017-03-03 06:31] LABS: INR 1.3 (<1.1); Prothrombin Time 13.2 sec (9.0-12.0)
--- NOTE | 2017-03-03 08:16 | PN ---
DATE OF SERVICE: 03/02/2017 PRESENTING COMPLAINT: Fracture of the left femur. INTERVAL HISTORY: This is a 71-year-old gentleman who experienced a fall from a ladder. Patient was subsequently found to have a fracture of the left hip for which he underwent surgery on 02/27/[address] Dejesus. Prior to surgery, the patient was found to have atrial fibrillation, and postoperatively was sent to the telemetry unit for management. Today the patient is lying in bed, looking comfortable. Pain is well controlled. No acute distress noted or voiced. Review of systems is done for constitutional, cardiovascular, GI, pulmonary; relevant findings as above. CURRENT MEDICATIONS: [place], Xanax, aspirin, atorvastatin, diazepam, diphenhydramine, enoxaparin, lisinopril, hydrochlorothiazide, hydromorphone, ketorolac with Lanoxin IV push for 2 doses p.o. will be started in the morning 03/02. PHYSICAL EXAMINATION: VITAL SIGNS: Temperature 97.6, heart rate 60, respirations 18, blood pressure 110/69. Oxygen saturation 95% on room air. GENERAL APPEARANCE: Patient is awake, alert, able to answer questions, lying comfortably in bed, not in any distress. EYES: Pupils equal. Conjunctivae normal. NECK: JVD unable to assess. Mass is not palpable. RESPIRATORY: Effort normal. Lungs slightly distant breath sounds bilaterally. CARDIOVASCULAR: S1, S2 normal. Irregular beats noted. No edema. ABDOMEN: Large, soft. Liver and spleen are not palpable. PSYCHIATRIC: Alert and oriented x3. Mood and affect are normal. MUSCULOSKELETAL: Limited range of motion on the left leg. INVESTIGATIONS: Chest x-ray reveals opacities in the lower lungs suspected to be atelectasis from hypoventilatory changes. BUN noted to be 28. ASSESSMENT: 1. Femur fracture secondary to mechanical fall off a ladder status post open reduction internal fixation of the left femur. 2. Essential hypertension. 3. Chronic diverticulosis, asymptomatic. 4. Hyperlipidemia. 5. Chronic insomnia, idiopathic. 6. Benign prosthetic hypertrophy. 7. Obesity, body mass index of 33.1. 8. Atrial fibrillation paroxysmal. Cardiology following. PLAN: Patient had a cardiac catheterization 12 years ago, had obstructive disease about 30%. Patient was found to be in atrial fibrillation and cardiology was consulted. Per their consultation notes anticoagulation has been initiated by them and they have decided to move forward with Coumadin. Patient does have a long-standing history of severe GI bleeding while on anticoagulation. Plan of care was discussed with the patient. All questions were answered. Patient was seen and examined by me/nurse practitioner and attending/Dr. Salas. The relevant points of the history/physical/diagnoses/plan were discussed and are as dictated above.
[2017-03-03] MEDS ORDERED: PANTOPRAZOLE 40 MG TABLET PO SCH (09:00)
[2017-03-03] MEDS: LISINOPRIL-HCTZ 20-12.5 MG 1 EACH TAB PO SCH (09:41)
[2017-03-03] MEDS: FUROSEMIDE 10 MG/ML 4 ML VIAL IV SCH (09:41)
[2017-03-03] MEDS: ENOXAPARIN 40 MG/0.4 ML SYRINGE SQ SCH (09:41)
[2017-03-03] MEDS: DIGOXIN 125 MCG TAB PO SCH (09:41)
[2017-03-03] MEDS: METOPROLOL TARTRATE 25 MG TAB PO SCH (09:41)
[2017-03-03 09:59] VITALS: BMI 32.3
[2017-03-03 10:09] VITALS: RESP 18
[2017-03-03] MEDS ORDERED: TAMSULOSIN 0.4 MG CAP.ER.24H PO SCH (13:00)
--- NOTE | 2017-03-03 13:04 | P.DS ---
Providers Date of admission: 02/26/17 20:41 Expected date of discharge: 03/03/17 Attending physician: Laisha Dejesus Consults: 02/28/17 08:02 Consult Physician Stat Consulting Provider: Sunitha Aguero Consult Reason/Comments: uncontrolled a-fib Do you want consulting provider notified?: Yes Primary care physician: Brandon Salcedoio - Discharge Diagnosis(es) (1) S/P hip hemiarthroplasty Current Visit: Yes Status: Acute (2) Atrial fibrillation Current Visit: Yes Status: Acute (3) Closed left hip fracture Current Visit: Yes Status: Acute (4) Fracture of femoral neck, left Current Visit: Yes Status: Acute Hospital Course: This is a pleasant 71-year-old male who presented with a left hip will neck fracture status post fall. He was admitted and underwent a left hip hemiarthroplasty performed on 02/27/2017. In regards to his left hip, he has had significant improvement postsurgically. He is not currently experiencing significant pain at the left hip. He has been working with physical therapy to increase mobility and ambulation. He continues to use an abductor pillow while lying in bed. He was having some difficulty with atrial fibrillation postsurgically. He is being seen and examined by medicine and cardiology. He also has a history of GI bleed on anticoagulation therapy. Cardiology has been managing his anticoagulation therapy. Cardiology is planning for the patient had an appointment with Dr. Toro at [place] following discharge to discuss possible atrial appendage closure device. Cardiology is also planning to do his med rec at discharge. Patient has had some difficulty with voiding postsurgically. He states he previously had a performed self-catheterization. He is currently on Flomax. Straight catheterization has had to be performed approximately 3 times over the past 15 hours. Per medicine, straight catheterization will continue while at rehab until he is able to return back to his baseline. He will continue with Flomax. Overall, patient feels he is progressing postsurgically. He states he is ready for discharge. Patient will be discharged to [facility] rehabilitation facility. Patient was cleared preoperatively for surgery by Dr. Salas. Patient currently denies any nausea , vomiting, fever, or chills. Patient is eating without difficulty. He has been able to have a bowel movement without difficulty. Patient may shower Dermabond dressing intact. Patient to keep Dermabond intact until follow-up appointment. Patient is encouraged to continue working with physical therapy increase mobility and ambulation while remaining 50% weightbearing on the left lower extremity. He should continue to use his abductor pillow while lying in bed. He'll given a prescription for [place] 5/325 mg 1 tab every 8 hours as needed for pain at discharge. Physical Exam on day of discharge: Status post surgical day number 4 Patient is examined in a chair at the bedside Patient is awake, alert, and oriented 3 Vital signs stable Good chest excursion with deep inspiration and expiration Abdomen soft nontender No signs or symptoms of DVT; no calf pain Lower extremity cuffs in place bilaterally Dressing of the left hip is clean, dry, and intact; no erythema, purulence, or signs of infection Evidence of significant bruising around the incision site No pain with palpation of the incision site Full range of motion of ankles bilaterally Dorsiflexion, plantarflexion, and extensor hallucis longus positive sustained bilaterally Neurovascularly intact bilateral lower extremities Capillary refill less than 2 seconds bilateral lower extremities Pr[place] catheter has been discontinued Procedures: left hip hemiarthroplasty Patient Condition at Discharge: Stable Plan - Discharge Summary New Discharge Prescriptions: Digoxin [Lanoxin] 125 mcg PO DAILY #30 tab Enoxaparin [Lovenox] 100 mg SQ Q12HR 2 Days HYDROcodone/APAP 5-325MG [[place] 5] 1 each PO Q8HR PRN #90 tab PRN Reason: Pain Metoprolol Tartrate [Lopressor] 25 mg PO BID #60 tab Warfarin [Coumadin] 5 mg PO DAILY@1800 #30 tab Discharge Medication List ALPRAZolam [Xanax] 0.5 mg PO HS 02/26/17 [History] Aspirin EC [Ecotrin Low Dose] 81 mg PO Q48H 02/26/17 [History] Lisinopril-Hctz 20-12.5 mg [Zestoretic 20-12.5] 1 tab PO DAILY 02/26/17 [History ] Simvastatin [Zocor] 20 mg PO HS 02/26/17 [History] Tamsulosin HCl [Flomax] 0.4 mg PO BID 02/26/17 [History] Zolpidem [Ambien] 10 mg PO HS 02/26/17 [History] Digoxin [Lanoxin] 125 mcg PO DAILY #30 tab 03/03/17 [Rx] Enoxaparin [Lovenox] 100 mg SQ Q12HR 2 Days 03/03/17 [Rx] HYDROcodone/APAP 5-325MG [[place] 5] 1 each PO Q8HR PRN #90 tab 03/03/17 [Rx] Metoprolol Tartrate [Lopressor] 25 mg PO BID #60 tab 03/03/17 [Rx] Warfarin [Coumadin] 5 mg PO DAILY@1800 #30 tab 03/03/17 [Rx] Follow up Appointment(s)/Referral(s): Arvind Dominique PAC [PHYSICIAN GREASE MAKER] - 2 Weeks (Patient may follow-up with Arvind Dominique PA-C or Dr. Elvin Dejesus at [facility] in 2-3 weeks following discharge. ) Brandon Canales MD [Primary Care Provider] - 1-2 days Sunitha Aguero MD [STAFF PHYSICIAN] - 1 Week Ambulatory/Diagnostic Orders: Prothrombin Time INR [LAB.AMB] Time Frame: 1 Day, Location: Determined By Patient Activity/Diet/Wound Care/Special Instructions: 1. Patient may continue to weight-bear with approximately 50% weight on the left lower extremity as tolerated; patient may work with physical therapy to increase mobility and ambulation 2. Patient may shower with Dermabond intact over the left hip without a dressing after 72 hours if no active drainage 3. Abductor pillow to remain in place at all times except while working with therapy 4. Patient may apply ice over the left hip for comfort and support as needed 5. Patient to continue with Flomax and straight catheterization until he is able to return to his baseline urination status per medicine Discharge Disposition: TRANSFER TO SNF/ECF
[2017-03-03 13:10] VITALS: BP 123/88; PULSE 93; TEMP 97
--- NOTE | 2017-03-03 15:16 | P.PN ---
Subjective Principal diagnosis: Left hip fracture, atrial fibrillation This is a pleasant 71-year-old gentleman with history of hypertension , hyperlipidemia, prior GI bleeds, who initially presented to the hospital after experiencing a fall off of a ladder. Patient incurred a left hip fracture for which he underwent surgery yesterday by Dr. Garg. EKG performed before surgery showed atrial fibrillation with a controlled ventricular response , patient continued to be in atrial fibrillation postoperatively, heart rate in the 120s, for this reason he was sent to the telemetry unit for postop monitoring. According to the patient, he has no prior documented history of atrial fibrillation, he does state that on occasion he has noted on his blood pressure cuff at home that his heart was beating irregularly. Patient states he has undergone a heart catheterization approximately 10 years ago which was reported to be normal, he does not follow with a vocal performer, his primary care doctor is Dr. Canales. Initial EKG shows atrial fibrillation with a controlled ventricular response, subsequent EKG performed this morning shows atrial fibrillation with mildly rapid ventricular response. Patient did have a couple episodes of loose stools. Dr. Aguero did speak with the vocal performer at [place] today regarding atrial appendage closure device. If the patient has a procedure he will need to be on Coumadin for 45 days following the procedure. Then he will be placed on aspirin and Plavix and ultimately just aspirin. This was discussed in detail with the patient and his and they are willing to proceed. He will be discharged to rehab, and an outpatient appointment will be made with Dr. Toro at [place]. Overall the patient is feeling much better today. We'll discontinue the IV Lasix and start him on oral diuretics. Arrangements are being made for transfer to rehab today. Objective - Vital Signs Vital signs: Vital Signs Temp 97.0 F L 03/03/17 12:00 Pulse 93 03/03/17 12:00 Resp 18 03/03/17 12:00 BP 123/88 03/03/17 12:00 Pulse Ox 97 03/03/17 12:00 Intake & Output 03/02/17 03/03/17 03/03/17 18:59 06:59 18:59 Intake Total 596 0 480 Output Total 301 1250 300 Balance 295 -1250 180 Weight 117.2 kg 117.2 kg Intake: IV 0 Sodium Chloride 0.9% 1, 0 000 ml @ 75 mls/hr IV . [id number] [facility] Rx#:[id number] Oral 596 480 Output: Urine 300 1250 300 Straight 1250 Urine/Stool Mix 1 Other: Voiding Method Urinal Urinal # Voids 2 # Bowel Movements 4 - Exam PHYSICAL EXAMINATION: HEENT: Head is atraumatic, normocephalic. Pupils equal, round. Neck is supple. There is no elevated jugular venous pressure. HEART EXAMINATION: Heart S1 and S2 irregularly irregular CHEST EXAMINATION: Lungs are clear to auscultation and precussion. No chest wall tenderness is noted on palpation or with deep breathing. ABDOMEN: Soft, nontender. Bowel sounds are heard. No organomegaly noted. EXTREMITIES: 2+ peripheral pulses with no evidence of peripheral edema and no calf tenderness noted. Dressing to the left hip is clean and dry and intact, abductor pillow in place. NEUROLOGIC patient is awake, alert and oriented -3. - Labs CBC & Chem 7: 03/02/17 06:13 03/02/17 06:09 Labs: Abnormal Lab Results - Last 24 Hours (Table) 03/03/17 Range/Units 06:06 PT 13.2 H (9.0-12.0) sec Assessment and Plan Plan: Assessment and plan #1 atrial fibrillation, unsure exactly of duration. Chronic persistent at this time. #2 status post left hip arthroplasty #3 hypertension #4 hyperlipidemia #5 prior GI bleeds, patient was told to have significant diverticulitis Plan Give the patient 5 mg of Coumadin today and daily. Check daily PT/INRs. Patient will be notified by Dr. Toro at [facility] regarding the appointment for the watchman device implantation. We will make the patient a follow-up appointment with Dr. Aguero in the office in one week. DNP note has been reviewed, I agree with a documented findings and plan of care. Patient was seen and examined.
[2017-03-03] MEDS ORDERED: FUROSEMIDE 40 MG TAB PO SCH (16:00)
[2017-03-03] MEDS ORDERED: WARFARIN 5 MG TAB PO SCH (18:00)
[2017-03-03] MEDS ORDERED: ENOXAPARIN 100 MG/ML SYRINGE SQ SCH (21:00)
--- NOTE | 2017-03-04 11:52 | PN ---
DATE OF SERVICE: 03/03/2017 PRESENTING COMPLAINT: Fracture of left femur. INTERVAL HISTORY: This patient was seen by me yesterday on 03/03/17. Patient is status post left hip surgery. Atrial fibrillation is being controlled. He feels comfortable. Patient has agreed to proceed with Coumadin after a discussion with Cardiology. Looking to go down to rehab. Pain is controlled. Review of systems done for constitutional, cardiovascular, GI, pulmonary; relevant findings as above. Current medications are reviewed. On examination, temperature 97, pulse 93, respiration 18, blood pressure 123/88, pulse ox 97% on room air. GENERAL APPEARANCE: Lying in bed, awake. EYES: Pupils equal. Conjunctivae normal. NECK: JVD not raised. RESPIRATORY: Effort normal. LUNGS: Slightly decreased breath sounds. CARDIOVASCULAR: Heart sounds irregular. No edema. ABDOMEN: Soft, nontender. Liver and spleen not palpable. PSYCHIATRY: Alert and oriented x3. Mood and affect normal. INVESTIGATIONS: INR 1.3. ASSESSMENT: 1. Left femur fracture secondary to a fall off of a ladder, status post open reduction internal fixation of the left femur. 2. Essential hypertension. 3. Chronic diverticulosis, asymptomatic. 4. Hyperlipidemia. 5. Chronic insomnia, idiopathic. 6. Benign prostatic hypertrophy. 7. Obesity; body mass index of 33.1. 8. Paroxysmal atrial fibrillation. Anticoagulation per Cardiology. PLAN: Care was discussed with the patient. Also discussed with the PA from Orthopedics. Coumadin dosing as per Cardiology and anticoagulation per Cardiology. Otherwise patient is medically stable.
--- NOTE | 2017-03-30 05:48 | PN ---
DATE OF SERVICE: 03/02/2017 ATTENDING NOTE: This patient was seen and examined by me on 03/02/17. I reviewed the note of my nurse practitioner, Ms. Zavala, discussed and agree with the same. The patient is lying in bed, comfortable. On examination, afebrile, blood pressure 110/69. RESPIRATORY: Effort normal. LUNGS: Slightly decreased breath sounds. CARDIOVASCULAR: Irregular heart sounds. Chest x-ray shows some atelectasis. ASSESSMENT: 1. Open reduction internal fixation of the left femur. 2. Hypertension. 3. Paroxysmal atrial fibrillation. PLAN: Per cardiology, they are planning to put patient on Coumadin. Patient does have history of GI bleeding. They will be discussing this with them further.
--- NOTE | 2017-03-30 23:46 | PN ---
DATE OF SERVICE: 02/28/2017 ATTENDING NOTE: This patient was seen and examined by me on 02/28/17. I have reviewed the note of my nurse practitioner, Ms. Zavala, and discussed with her and agree with the same. Patient is status post left femur fracture, status post surgery. Remains in atrial fibrillation. Pain is controlled. Patient is sitting up. On examination, blood pressure 103/58, pulse ox 94% on 5 L. LUNGS: Slightly decreased breath sounds. CARDIOVASCULAR: Heart sounds irregular. No edema. ABDOMEN: Soft. ASSESSMENT: 1. Left femur open reduction internal fixation. 2. Atrial fibrillation. PLAN: Continue current medication and treatment plan. Care was discussed with the patient. Will follow.
--- NOTE | 2017-03-31 07:14 | PN ---
DATE OF SERVICE: 03/01/2017 ATTENDING NOTE: This patient was seen and examined by me on 03/01/17. I reviewed the note of my nurse practitioner, Ms. Zavala. I agreed and discussed with her. This is a patient with a fracture left hip, status post surgery and then went into atrial fibrillation. Pain is better controlled, more comfortable. On examination, pulse 98, respirations 18, blood pressure 108/73, pulse ox 98% on 4 liters. GENERAL APPEARANCE: Lying in bed, comfortable. RESPIRATORY: Effort normal. Slightly decreased breath sounds. CARDIOVASCULAR: Heart sounds irregular. No edema. ABDOMEN: Soft, nontender. ASSESSMENT: 1. Left femur open reduction and internal fixation. 2. Atrial fibrillation, paroxysmal. PLAN: Cardiology started the patient on Digoxin. They will be addressing the anticoagulation with history of severe GI bleed. Cardiology will discuss with the patient and determine finally about anticoagulation.
== END 2017-03-03 14:28 | DRG 470 ==
LOC: EC 19:28 → 3SUR 20:41 → 6SEL 02-28 08:03
PROVIDERS: ADMIT Orthopaedic Surgery Orthopaedic Surgery of the Spine; ATTEND Orthopaedic Surgery Orthopaedic Surgery of the Spine
PROC: 05HF33Z Insertion of Infusion Device into Left Cephalic Vein, Percutaneous Approach (ICD-10-PCS; 2017-02-27)
PROC: 0SRS0JA Replacement of Left Hip Joint, Femoral Surface with Synthetic Substitute, Uncemented, Open Approach (ICD-10-PCS; principal; 2017-02-27 15:25)
DX: S72.002A Fracture of unspecified part of neck of left femur, initial encounter for closed fracture (principal); I48.0 Paroxysmal atrial fibrillation; I11.0 Hypertensive heart disease with heart failure; I50.9 Heart failure, unspecified; E66.9 Obesity, unspecified; W11.XXXA Fall on and from ladder, initial encounter; E78.5 Hyperlipidemia, unspecified; F51.01 Primary insomnia; Z68.33 Body mass index [BMI] 33.0-33.9, adult; Z79.82 Long term (current) use of aspirin; Z79.899 Other long term (current) drug therapy; Z82.49 Family history of ischemic heart disease and other diseases of the circulatory system; N40.0 Benign prostatic hyperplasia without lower urinary tract symptoms; Z87.11 Personal history of peptic ulcer disease; E78.00 Pure hypercholesterolemia, unspecified; K57.30 Diverticulosis of large intestine without perforation or abscess without bleeding
CPT/HCPCS: 71010; 71020; 73502; 80048; 80053; 83880; 84439; 84443; 85025; 85027; 85610; 85730; 86850; 86900; 86901; 88305; 88311; 93005; 93306; 96374; 99285

== ENCOUNTER 2017-11-29 14:18 | Emergency (ER) | payer MEDICARE ==
--- NOTE | 2017-11-29 15:20 | ED ---
Fall HPI - General Chief Complaint: Fall Stated Complaint: Fall/Rib Pain Time Seen by Provider: 11/29/17 15:04 Source: patient, RN notes reviewed Mode of arrival: ambulatory Limitations: no limitations - History of Present Illness Initial Comments: This a 72-year-old male presents emergency Department with chief complaint of slip and fall. Patient states she slipped on some ice fell backwards onto his right chest region and, right forearm. He has complained that there is a large area of bruising to his right forearm. He states he has no pain associated with it. Patient denies head injury, loss conscious. Patient states he does take Plavix he was on Coumadin but discontinued this 1 week ago. Patient states that he has has pain along his right mid rib region and is worse with deep inspiration. Denies any shortness of breath, anterior chest pain, neck or back any back discomfort. Patient is concerned about possible rib fracture. He has no abdominal pain denies any nausea vomiting diarrhea constipation. - Related Data Home Medications Medication Instructions Recorded Confirmed ALPRAZolam [Xanax] 0.5 mg PO HS 02/26/17 02/26/17 Aspirin EC [Ecotrin Low Dose] 81 mg PO Q48H 02/26/17 02/26/17 Lisinopril-Hctz 20-12.5 mg 1 tab PO DAILY 02/26/17 02/26/17 [Zestoretic 20-12.5] Simvastatin [Zocor] 20 mg PO HS 02/26/17 02/26/17 Tamsulosin HCl [Flomax] 0.4 mg PO BID 02/26/17 02/26/17 Zolpidem [Ambien] 10 mg PO HS 02/26/17 02/26/17 Previous Rx's Medication Instructions Recorded Digoxin [Lanoxin] 125 mcg PO DAILY #30 tab 03/03/17 Enoxaparin [Lovenox] 100 mg SQ Q12HR 2 Days syringe 03/03/17 HYDROcodone/APAP 5-325MG [[place] 5] 1 each PO Q8HR PRN #90 tab 03/03/17 Metoprolol Tartrate [Lopressor] 25 mg PO BID #60 tab 03/03/17 Warfarin [Coumadin] 5 mg PO DAILY@1800 #30 tab 03/03/17 Allergies Allergy/AdvReac Type Severity Reaction Status Date / Time No Known Allergies Allergy Verified 11/29/17 14:31 Review of Systems ROS Statement: Those systems with pertinent positive or pertinent negative responses have been documented in the HPI. ROS Other: All systems not noted in ROS Statement are negative. Past Medical History Past Medical History: Hypertension Additional Past Medical History / Comment(s): diveticulosis, hyperchoestremia. gallbladder removal History of Any Multi-Drug Resistant Organisms: None Reported Past Surgical History: Cholecystectomy, Orthopedic Surgery Additional Past Surgical History / Comment(s): tonsils, vasectomy Past Anesthesia/Blood Transfusion Reactions: No Reported Reaction Past Psychological History: No Psychological Hx Reported Smoking Status: Never smoker Past Alcohol Use History: None Reported Past Drug Use History: None Reported - Past Family History Father Family Medical History: Coronary Artery Disease (CAD) Mother Family Medical History: No Reported History General Exam Limitations: no limitations General appearance: alert, in no apparent distress Head exam: Present: atraumatic, normocephalic, normal inspection Eye exam: Present: normal appearance, PERRL, EOMI. Absent: scleral icterus, conjunctival injection, periorbital swelling ENT exam: Present: normal exam, normal oropharynx, mucous membranes moist Neck exam: Present: normal inspection, full ROM. Absent: tenderness, meningismus, lymphadenopathy Respiratory exam: Present: normal lung sounds bilaterally, chest wall tenderness (Mild posterior to right lateral mid rib tenderness). Absent: respiratory distress, wheezes, rales, rhonchi, stridor Cardiovascular Exam: Present: regular rate, normal rhythm, normal heart sounds. Absent: systolic murmur, diastolic murmur, rubs, gallop, clicks GI/Abdominal exam: Present: soft, normal bowel sounds. Absent: distended, tenderness, guarding, rebound, rigid Extremities exam: Present: other (Right forearm there is a large area of ecchymosis noted this area is nontender patient has full range of motion of the right wrist, right elbow and right shoulder neurovascular intact, remaining extremity exam within normal limits.) Back exam: Present: full ROM. Absent: tenderness, paraspinal tenderness, vertebral tenderness Neurological exam: Present: alert, oriented X3, CN II-XII intact, reflexes normal. Absent: motor sensory deficit Course Vital Signs 11/29/17 14:29 Temperature 97.7 F Pulse Rate 93 Respiratory 20 Rate Blood Pressure 147/101 O2 Sat by Pulse 97 Oximetry Medical Decision Making - Medical Decision Making 72-year-old male presents from for fall, right chest wall injury, right arm injury. X-rays reviewed no acute fracture. Patient has a right forearm hematoma, right rib contusion. Patient be discharged at this time. We discussed taking deep inspirations it sometimes an hour to prevent any pneumonia. Patient will return for any worsening symptoms. Disposition Clinical Impression: Fall, Contusion of rib on right side, Traumatic hematoma of right forearm Disposition: HOME SELF-CARE Condition: Stable Instructions: Rib Contusion (ED) Additional Instructions: Please return to the Emergency Department if symptoms worsen or any other concerns. Referrals: Brandon Canales MD [Primary Care Provider] - 1-2 days Time of Disposition: 15:59
--- NOTE | 2017-11-29 15:52 | XR ---
Right forearm HISTORY: Trauma and pain 2 views of the right forearm Bone mineralization is mildly reduced. Alignment and joint spaces are maintained, mild osteoarthritic change, marginal spurring present at the elbow. No evident joint effusion. There is soft tissue swel ling present. IMPRESSION: No fracture or dislocation. There is soft tissue swelling present.
--- NOTE | 2017-11-29 15:56 | XR ---
EXAMINATION TYPE: XR ribs RT w pa chest x-ray DATE OF EXAM: 11/29/2017 CLINICAL HISTORY: Chest and lower right rib pain after fall injury today. TECHNIQUE: Single frontal view of the chest is obtained. A frontal and oblique images of the right-si ded ribs are acquired. COMPARISON: Chest x-ray March 02, 2017 FINDINGS: There is new patchy bibasilar linear atelectasis. No large pleural effusion or pneumothora x is seen bilaterally. The cardiac silhouette size is stable and upper limits of normal. Degenerative change right acromioclavicular joint is redemonstrated. Cholecystectomy clips are redemonstrated. Dedicated images of right-sided ribs show no acute displaced fracture. Overlying soft tissue is unrem arkable. IMPRESSION: 1. New patchy bibasilar linear atelectasis. 2. No acute displaced right-sided rib fractures are identified.
[2017-11-29 16:06] VITALS: BP 170/87; PULSE 94; RESP 16; TEMP 98
== END 2017-11-29 16:05 | disposition home or self-care (01) ==
LOC: EC 14:18
DX: S20.211A Contusion of right front wall of thorax, initial encounter (principal); S50.11XA Contusion of right forearm, initial encounter; I10 Essential (primary) hypertension; E78.00 Pure hypercholesterolemia, unspecified; Z79.82 Long term (current) use of aspirin; Z79.899 Other long term (current) drug therapy; W00.0XXA Fall on same level due to ice and snow, initial encounter
CPT/HCPCS: 99283

== ENCOUNTER → 2018-05-31 | Outpatient (CLI) | payer MEDICARE ==
[2018-05-31 17:52] LABS: Potassium 4.1 mmol/L (3.5-5.1)
[2018-05-31 18:44] LABS: HCT 43.4 % (39.0-53.0); HGB 14.7 gm/dL (13.0-17.5); MCH 32.5 pg (25.0-35.0); MCHC 33.9 g/dL (31.0-37.0); Mean Platelet Volume 6.7; Platelet Count 209 k/uL (150-450); RBC 4.52 m/uL (4.30-5.90); RDW 13.9 % (11.5-15.5); WBC 5.7 k/uL (3.8-10.6)
== END | disposition home or self-care (01) ==
LOC: LABPAT 16:43
PROVIDERS: ATTEND Internal Medicine Cardiovascular Disease
DX: Z01.812 Encounter for preprocedural laboratory examination (principal); R07.9 Chest pain, unspecified
CPT/HCPCS: 36415; 80051; 82565; 84520; 85027

== ENCOUNTER 2018-06-01 06:45 | Day surgery (SDC) | payer MEDICARE ==
[2018-06-01] MEDS ORDERED: SODIUM CHLORIDE 0.9% 1,000 ML IV ONE (07:25)
[2018-06-01] MEDS ORDERED: fentaNYL (PF) 50 MCG/ML 2 ML AMP IV ONE (08:06)
[2018-06-01] MEDS ORDERED: MIDAZOLAM 2 MG/2 ML VIAL IVP ONE ×2 (08:06→12:16)
[2018-06-01] MEDS ORDERED: LIDOCAINE 1% INJ 10MG/ML (20 ML MDV) SQ ONE ×2 (08:11→08:24)
[2018-06-01] MEDS: VERAPAMIL SYRINGE (5 MG/10 ML) INTRAARTER ONE ×2 (08:12→08:45)
[2018-06-01] MEDS ORDERED: HEPARIN SODIUM 1,000 UN/ML (10ML VL) IV ONE (08:14)
[2018-06-01] MEDS ORDERED: RX INFO: IV CONTRAST WAS GIVEN 1 EACH MISC MISCELLANE PRN ×2 (08:53→12:58)
[2018-06-01] MEDS ORDERED: IOPAMIDOL-370 125ML BTL INJ ONE (08:57)
[2018-06-01] MEDS ORDERED: SODIUM CHLORIDE 0.9% 1,000 ML IV SCH (09:00)
[2018-06-01] MEDS ORDERED: ISOSORBIDE MONONITRATE ER 30 MG TAB.ER.24H PO SCH (09:00)
[2018-06-01 10:05] VITALS: RESP 18
[2018-06-01] MEDS ORDERED: IV FLUID CONTINUATION 500 ML IV ONE (12:07)
[2018-06-01] MEDS ORDERED: diphenhydrAMINE 50 MG/ML 1 ML VIAL IVP ONE (12:16)
[2018-06-01] MEDS: HEPARIN SODIUM 1,000 UN/ML (10ML VL) IV ONE ×2 (12:18→12:37)
[2018-06-01] MEDS ORDERED: ADENOSINE 180 MG in SODIUM CHLORIDE 0.9% 30 ML IVP ONE (12:32)
[2018-06-01] MEDS ORDERED: IOPAMIDOL-370 100ML BTL INJ ONE ×2 (12:41→12:56)
[2018-06-01] MEDS ORDERED: ZOLPIDEM 5 MG TAB PO PRN (12:58)
[2018-06-01] MEDS ORDERED: ATROPINE SULFATE 0.1 MG/ML 10ML SYRINGE IV PRN (12:58)
[2018-06-01] MEDS ORDERED: NITROGLYCERIN SL TABS 0.4 MG TAB SUBLINGUAL PRN (12:58)
[2018-06-01] MEDS ORDERED: MAG HYDROX/AL HYDROX/SIMETH 30 ML CUP PO PRN (12:58)
[2018-06-01] MEDS ORDERED: CLOPIDOGREL 75 MG TAB PO ONE (13:02)
[2018-06-01] MEDS ORDERED: NITROGLYCERIN SL TABS 0.4 MG TAB SUBLINGUAL STA (13:51)
--- NOTE | 2018-06-01 14:01 | PTCA ---
PERCUTANEOUSTRANS CORORONARY ANGIOGRAPHY DATE OF SERVICE: 06/01/2018. PROCEDURE: 1. Fractional flow reserve assessment of a mid LAD lesion. 2. PTCA and stenting of mid LAD with a drug-eluting stent. PERFORMED BY: Dr. Teetee Anne. Moderate conscious sedation time was 40 minutes. Patient was administered Benadryl, versed and his oxygen saturation, hemodynamics and EKG were monitored closely. CLINICAL INFORMATION: Mr. Jose Reis is a gentleman with chronic atrial fibrillation, status post Watchman device, who sees Dr. Aguero in the outpatient setting. He was brought in for the cardiac catheterization because of complaints of recurrent chest discomfort. His cardiac cath revealed that there was a moderate lesion in the proximal/mid LAD with somewhat of eccentric in nature best seen in the cranial projections. In view of this, he was advised an FFR and intervention based on findings. Patient has chronic atrial fibrillation and has a Watchman device that was placed recently. He also has hypertension and hyperlipidemia as well. Coronary angiography by Dr. Aguero revealed there was a moderate lesion in the LAD. The patient was brought back for the FFR with a sheath already in place. PROCEDURE NOTE: The existing 6-Greenlandic introducer in the right femoral artery was used to perform procedure. I used a standard left Ruy guide catheter to cannulate the left coronary artery. Patient received a total of 7500 units of heparin. I advanced a Verrata [place] wire and FFR and iFR was performed. The iFR was 0.89. FFR was 0.74. The FFR was obtained with an adenosine infusion. This suggested that the lesion was significant. Using the same wire, I advanced a 3.25, 15 mm long Xience stent and deployed this at 13 atmospheres. Patient did not have any significant chest pain, but had mild precordial ST-segment elevation. Excellent angiographic result was achieved without complication. The ACT was 334. The sheath was taken out and Angio-Seal device used to secure hemostasis. Excellent angiographic result without complication was achieved. The patient was sent to the room in a stable condition. Patient received heparin intravenously and also 300 mg of Plavix was given orally. The patient was already on Plavix. His ACT was 334. I expect the patient to be discharged tomorrow if he remains stable. MMODL / IJN: [id number] /
[2018-06-01] MEDS: amLODIPine 5 MG TAB PO SCH ×2 (14:02→20:33)
--- NOTE | 2018-06-01 14:07 | LTR ---
June 01, 2018 Re: Jose Reis Dear Dr. Canales: Thank you for the opportunity to participate in the care of Mr. Reis. I am pleased to report to you that he had an excellent angiographic result. The proximal/mid LAD was stented after FFR suggested that this lesion was significant. The patient should be on a dual antiplatelet therapy for one year without interruption. Thank you for your referral and please call for questions. With kindest regards. Sincerely yours, MD ELEUTERIO Larsen / DEVORAH: [id number] /
[2018-06-01] MEDS: METOPROLOL TARTRATE 25 MG TAB PO SCH ×2 (16:53→20:33)
[2018-06-01] MEDS: VITAMIN E PO SCH (16:53)
[2018-06-01] MEDS: ALLOPURINOL 300 MG TAB PO SCH (16:53)
[2018-06-01] MEDS: TAMSULOSIN 0.4 MG CAP.ER.24H PO SCH ×2 (16:53→20:33)
[2018-06-01] MEDS: SODIUM CHLORIDE 0.9% 1,000 ML IV SCH (18:14)
[2018-06-01] MEDS ORDERED: ATORVASTATIN 80 MG TAB PO SCH (21:00)
[2018-06-01] MEDS ORDERED: CLOPIDOGREL 75 MG TAB PO SCH (21:00)
[2018-06-01] MEDS ORDERED: ZOLPIDEM 10 MG TAB PO SCH (21:00)
[2018-06-02] MEDS: SODIUM CHLORIDE 0.9% 1,000 ML IV SCH (06:42)
--- NOTE | 2018-06-02 07:21 | P.DS ---
Providers Date of admission: 06/01/2018 Attending physician: Sunitha Aguero Consults: 06/01/18 12:58 Consult Physician Routine Consulting Provider: [facility] Consult Reason/Comments: Post Interventional patient Do you want consulting provider notified?: Already Contacted Primary care physician: Brandon Canales - Discharge Diagnosis(es) (1) Unstable angina Current Visit: Yes Status: Acute (2) Atrial fibrillation Current Visit: No Status: Acute (3) Status post coronary artery stent placement Current Visit: Yes Status: Acute Hospital Course: This is 71-year-old gentleman was brought in for evaluation of chest pains. He was found to have significant disease involving the proximal LAD. Patient had a stent placement. Yesterday by Dr. PAT Anne. Patient also has paroxysmal and persistent atrial fibrillation. Patient tolerated the procedure well and remained stable overnight. His arterial puncture site is healing well without any evidence of hematoma. Radial pulses are bounding. There is a ecchymosis in the groin area but no hematoma. Pulses are preserved. Patient's lungs are clear. Heart is regular. Patient remained in atrial fibrillation with controlled ventricular response. I'm going to try to save patient can be converted to sinus rhythm with flecainide 150 mg. If patient tolerates, we'll continue A to 150 twice a day. Patient will be discharged home today in about 4 -6 hours. Blood work is pending. Follow-up in the office in one week Plan - Discharge Summary Discharge Rx Participant: No New Discharge Prescriptions: New amLODIPine [Norvasc] 5 mg PO BID #30 tab Aspirin 81 mg PO DAILY chew Atorvastatin [Lipitor] 80 mg PO HS #90 tab Flecainide [Tambocor] 150 mg PO Q12HR #60 tab Nitroglycerin Sl Tabs [Nitrostat] 0.4 mg SUBLINGUAL Q5M PRN #30 tab PRN Reason: Chest Pain Continue Zolpidem [Ambien] 10 mg PO HS Tamsulosin HCl [Flomax] 0.4 mg PO BID Simvastatin [Zocor] 20 mg PO HS Isosorbide Mononitrate ER [Imdur] 30 mg PO DAILY Clopidogrel [Plavix] 75 mg PO HS Allopurinol [Zyloprim] 300 mg PO DAILY Metoprolol Tartrate [Lopressor] 25 mg PO BID Vitamin E 5,000 unit PO DAILY Discharge Medication List Simvastatin [Zocor] 20 mg PO HS 02/26/17 [History] Tamsulosin HCl [Flomax] 0.4 mg PO BID 02/26/17 [History] Zolpidem [Ambien] 10 mg PO HS 02/26/17 [History] Allopurinol [Zyloprim] 300 mg PO DAILY 06/01/18 [History] Clopidogrel [Plavix] 75 mg PO HS 06/01/18 [History] Isosorbide Mononitrate ER [Imdur] 30 mg PO DAILY 06/01/18 [History] Metoprolol Tartrate [Lopressor] 25 mg PO BID 06/01/18 [History] Vitamin E 5,000 unit PO DAILY 06/01/18 [History] Aspirin 81 mg PO DAILY chew 06/02/18 [Rx] Atorvastatin [Lipitor] 80 mg PO HS #90 tab 06/02/18 [Rx] Flecainide [Tambocor] 150 mg PO Q12HR #60 tab 06/02/18 [Rx] Nitroglycerin Sl Tabs [Nitrostat] 0.4 mg SUBLINGUAL Q5M PRN #30 tab 06/02/18 [Rx ] amLODIPine [Norvasc] 5 mg PO BID #30 tab 06/02/18 [Rx] Follow up Appointment(s)/Referral(s): Sunitha Aguero MD [STAFF PHYSICIAN] - 1 Week
[2018-06-02 07:22] LABS: Basophils % (A) 0 %; Eosinophils # (A) 0.1 k/uL (0-0.7); Eosinophils % (A) 3 %; HCT 44.8 % (39.0-53.0); HGB 14.3 gm/dL (13.0-17.5); Lymphocytes # (A) 0.8 k/uL (1.0-4.8); Lymphocytes % (A) 15 %; MCH 30.7 pg (25.0-35.0); MCHC 31.9 g/dL (31.0-37.0); Mean Platelet Volume 6.8; Monocytes # (A) 0.5 k/uL (0-1.0); Monocytes % (A) 10 %; Neutrophils # (A) 3.5 k/uL (1.3-7.7); Neutrophils % (A) 68 %; Platelet Count 181 k/uL (150-450); RBC 4.67 m/uL (4.30-5.90); RDW 13.6 % (11.5-15.5); WBC 5.1 k/uL (3.8-10.6)
[2018-06-02 07:36] LABS: Calcium 8.8 mg/dL (8.4-10.2); Potassium 4.2 mmol/L (3.5-5.1)
[2018-06-02] MEDS: amLODIPine 5 MG TAB PO SCH (07:44)
[2018-06-02] MEDS: ALLOPURINOL 300 MG TAB PO SCH (07:44)
[2018-06-02] MEDS: METOPROLOL TARTRATE 25 MG TAB PO SCH (07:44)
[2018-06-02] MEDS: TAMSULOSIN 0.4 MG CAP.ER.24H PO SCH (07:44)
[2018-06-02] MEDS: VITAMIN E PO SCH (07:45)
--- NOTE | 2018-06-02 07:53 | P.CARDCATH ---
Date of Procedure: 06/01/18 Preoperative Diagnosis: New-onset angina Postoperative Diagnosis: The same Procedure(s) Performed: Left heart catheterization without left ventriculography Description of Procedure: HISTORY: This is a 72-year-old gentleman with history of paroxysmal/persistent atrial fibrillation and strong family history of ischemic heart disease with multiple risk factors who came to our office with complaints of recurrent chest pains for the last one to 2 weeks. EKG did not reveal any acute changes. Patient is advised to have a cardiac catheterization for definitive diagnosis. CONSENT:I have discussed the risks, benefits and alternative therapies for the above-mentioned procedure and for both sedation/analgesia as well as necessary blood product administration, if indicated, as they pertain to this patient. The patient has indicated understanding and acceptance of the risks and procedures discussed. PROCEDURE: Patient was brought to the lab in a fasting state. Patient was given IV sedation. Attempts were made to do cardiac catheterization from the right wrist and radial approach. The right wrist is infiltrated with lidocaine. Right radial artery was entered using Seldinger technique and a 6-[place]enezuelan sheath was left in place. Intra-arterial verapamil was infused. Subsequently at times were made to advance the catheter. However because of uncoiling of the aorta. It was technically difficult to advance the catheters into the ascending aorta. The procedure was abandoned and a cardiac catheter wasn't performed. The right femoral approach. The right groin is infiltrated with lidocaine and right femoral artery was entered using Seldinger technique. A 6-[place]enezuelan catheter was left in place and selective coronary arteriography was performed. Patient tolerated the procedure well. No immediate complications were noted and Patient went on to have stent placement of the LAD by Dr. PAT Anne. Conscious Sedation: Versed 1mg Fentanyl 50 g Duration 29minutes HEMODYNAMICS: The aortic pressure is about 130/70. Left ankle end-diastolic pressure is about 8-10. There was no gradient across the aortic valve. SELECTIVE CORONARY ARTERIOGRAPHY: LEFT MAIN: Normal length with minimal plaque THE LEFT ANTERIOR DESCENDING CORONARY ARTERY: This is a moderate caliber vessel with an eccentric lesion of the origin of the small diagonal branch. It was difficult to expose this part of the LAD in spite of the multiple views. The rest of the LAD showed mild plaque without any significant focal lesion. Patient went on to have FFR followed by stent placement of the LAD by Dr. PAT Anne. THE LEFT CIRCUMFLEX AND IS CORONARY ARTERY: This is a moderate caliber vessel giving rise to good-sized OM branch and small distal circumflex with non-dominant distribution. Mild plaque noted in the circumflex without any focal lesions. THE RIGHT CORONARY ARTERY: The right coronary artery is also a good caliber vessel and dominant in distribution, giving rise to PDA and PLV. The right coronary artery has mild diffuse plaque without any focal occlusive lesion. LEFT VENTRICULOGRAPHY: Not performed FINAL IMPRESSION: Eccentric moderate to severe lesion in the LAD after a small diagonal branch. Patient went on to have FFR and possible stent placement of the LAD. Rest of the coronary system is free of any significant occlusive disease PLAN: FFR and possible stent placement LAD to be done by Dr. STEWART PROGNOSIS: Fair
[2018-06-02] MEDS ORDERED: FLECAINIDE 50 MG TAB PO SCH (09:00)
[2018-06-02] MEDS ORDERED: ASPIRIN 81 MG PO SCH (09:00)
[2018-06-02] MEDS ORDERED: CLOPIDOGREL 75 MG TAB PO SCH (09:00)
[2018-06-02 10:30] VITALS: BMI 33.2
[2018-06-02 12:05] VITALS: BP 108/66; PULSE 62; TEMP 97
== END 2018-06-02 13:18 | disposition home or self-care (01) ==
LOC: CATHCVL 06:45 → 6SEL 16:15 → CATHCVL 06-02 13:18
PROVIDERS: ATTEND Internal Medicine Cardiovascular Disease
DX: I25.110 Atherosclerotic heart disease of native coronary artery with unstable angina pectoris (principal); I11.0 Hypertensive heart disease with heart failure; I50.32 Chronic diastolic (congestive) heart failure; I48.1 Persistent atrial fibrillation; I95.1 Orthostatic hypotension; E78.2 Mixed hyperlipidemia; Z82.49 Family history of ischemic heart disease and other diseases of the circulatory system; Z79.82 Long term (current) use of aspirin; Z79.02 Long term (current) use of antithrombotics/antiplatelets; Z79.899 Other long term (current) drug therapy
CPT/HCPCS: 93571; 93458; 80048; 85025; C9600; C1760; C1887; C1894 ×2; C1769 ×2; C1874; J2250; J1200; J2001; J3010; J1644; J0153; Q9967 ×2

== ENCOUNTER → 2018-06-15 | Day surgery (SDC) | payer MEDICARE ==
[2018-06-11 12:21] VITALS: BMI 33.6
[~2018-06-15] MED LIST: LACTATED RINGERS 1,000 ML IV SCH; LIDOCAINE 1% INJ 10MG/ML (20 ML MDV) ONE; PROPOFOL 10 MG/ML 20 ML VIAL IV ONE; SODIUM CHLORIDE 0.9% 1,000 ML IV SCH; ePHEDrine SULFATE/0.9% NACL/PF 50 MG/5 ML SYRINGE IV ONE; fentaNYL (PF) 50 MCG/ML 2 ML AMP ONE
[2018-06-15 10:04] VITALS: RESP 16
--- NOTE | 2018-06-15 10:12 | P.TEE ---
Indications for Procedure(s): Rule out clot in the left atrium and her to assess watchman device Date of Procedure: 06/15/18 Preoperative Diagnosis: Persistent atrial fibrillation Postoperative Diagnosis: Failed attempted cardioversion Procedure(s) Performed: YOUSIF., cardioversion Description of Procedure(s): INDICATION: Atrial fibrillation CONSENT:. Verbal consent was obtained from the patient PROCEDURE:. Patient was brought to the lab in a fasting state. He was prepped and draped in the usual fashion. He was given IV sedation by department of anesthesia. A lubricated Omni probe was introduced into the oropharynx and advanced into the esophagus. Multiple views were obtained. From the esophagus and stomach. Color and pulse wave Doppler studies were performed. Saline contrast bubble injections also performed FINDINGS: There is a watchman device in the left atrial appendage which seemed to be functioning normally. There is no evidence of any clot in the left atrium. No smoke noted in the left atrium. There is no spontaneous shunt across the intra-atrial septum. However injection of contrast bubbles showed crusting of the bubbles in the left atrium suggestive of PFO. Left ventricular function is preserved. Aortic valve appears to be normal. Normally. The mitral valve appeared to be normal. There is mild tricuspid regurgitation IMPRESSION: No clot in the left atrium. Properly positioned watchman device PLAN: Proceed with cardioversion
--- NOTE | 2018-06-15 10:14 | P.PCN ---
Date of Procedure: 06/15/18 Preoperative Diagnosis: Atrial fibrillation Postoperative Diagnosis: Atrial fibrillation Procedure(s) Performed: Cardioversion Description of Procedure: This patient is brought in for electrical cardioversion. Patient had a watchman procedure. A YOUSIF was performed to rule out any clot in the left atrium and located the watchman device. No clots were noted. Single and shocks of 200 followed by 300 followed with 360joules was applied. Patient did not convert to sinus rhythm and remained in atrial fibrillation. Final impression #1. Unsuccessful attempts at cardioversion. #2. Persistent atrial fibrillation
[2018-06-15 12:14] VITALS: TEMP 98.2
[2018-06-15 12:17] VITALS: BP 134/65; PULSE 60
== END ==
LOC: CATHCVL 08:26
PROVIDERS: ATTEND Internal Medicine Cardiovascular Disease
DX: I48.1 Persistent atrial fibrillation (principal); Z79.01 Long term (current) use of anticoagulants; I11.0 Hypertensive heart disease with heart failure; I50.32 Chronic diastolic (congestive) heart failure; E78.2 Mixed hyperlipidemia; I95.1 Orthostatic hypotension; E78.00 Pure hypercholesterolemia, unspecified; E78.5 Hyperlipidemia, unspecified; Z82.49 Family history of ischemic heart disease and other diseases of the circulatory system; Z79.899 Other long term (current) drug therapy
CPT/HCPCS: 93312; 93320; 93325; 92960; J2001; J3010; J2704

== ENCOUNTER 2020-06-30 09:31 | Day surgery (SDC) | payer MEDICARE ==
[2020-06-24 13:55] VITALS: BMI 34.3
[~2020-06-30 09:31] MED LIST changes: +ALPRAZolam 0.25 MG TAB PO PRN; +ALPRAZolam 0.5 MG TAB PO PRN; +ASPIRIN 325 MG TAB PO STA; +ATORVASTATIN 80 MG TAB PO STA; -LACTATED RINGERS 1,000 ML IV SCH; -LIDOCAINE 1% INJ 10MG/ML (20 ML MDV) ONE; +NITROGLYCERIN SL TABS 0.4 MG TAB SUBLINGUAL PRN; -PROPOFOL 10 MG/ML 20 ML VIAL IV ONE; -SODIUM CHLORIDE 0.9% 1,000 ML IV SCH; +SODIUM CHLORIDE 0.9% 1,000 ML in EMPTY BAG 1 BAG IV ONE; -ePHEDrine SULFATE/0.9% NACL/PF 50 MG/5 ML SYRINGE IV ONE; -fentaNYL (PF) 50 MCG/ML 2 ML AMP ONE
[2020-06-30] MEDS ORDERED: SODIUM CHLORIDE 0.9% 1,000 ML IV ONE (10:07)
[2020-06-30 10:11] VITALS: RESP 16; TEMP 98.1
[2020-06-30 10:14] LABS: Basophils % (A) 1 %; Eosinophils # (A) 0.1 k/uL (0-0.7); Eosinophils % (A) 2 %; HCT 44.6 % (39.0-53.0); HGB 14.6 gm/dL (13.0-17.5); Lymphocytes % (A) 17 %; MCH 32.3 pg (25.0-35.0); MCHC 32.7 g/dL (31.0-37.0); MCV 98.9 fL (80.0-100.0); Mean Platelet Volume 7.4; Monocytes # (A) 0.4 k/uL (0-1.0); Monocytes % (A) 8 %; Neutrophils # (A) 4.1 k/uL (1.3-7.7); Neutrophils % (A) 69 %; Platelet Count 212 k/uL (150-450); RBC 4.51 m/uL (4.30-5.90); RDW 13.4 % (11.5-15.5); WBC 5.9 k/uL (3.8-10.6)
[2020-06-30] MEDS ORDERED: LIDOCAINE 1% INJ 10MG/ML (20 ML MDV) ONE (10:20)
[2020-06-30 10:25] LABS: Calcium 8.9 mg/dL (8.4-10.2); Potassium 4.3 mmol/L (3.5-5.1)
[2020-06-30] MEDS ORDERED: fentaNYL (PF) 50 MCG/ML 2 ML AMP ONE (10:41)
[2020-06-30] MEDS: MIDAZOLAM 2 MG/2 ML VIAL IV ONE ×2 (10:46→10:53)
[2020-06-30] MEDS: fentaNYL (PF) 50 MCG/ML 2 ML AMP IV ONE ×2 (10:46→10:54)
[2020-06-30] MEDS ORDERED: LIDOCAINE 1% INJ 10MG/ML (20 ML MDV) SQ ONE (10:55)
[2020-06-30] MEDS ORDERED: IOPAMIDOL-370 125ML BTL INJ ONE (11:07)
[2020-06-30] MEDS ORDERED: RX INFO: IV CONTRAST WAS GIVEN 1 EACH MISC MISCELLANE PRN (11:17)
--- NOTE | 2020-06-30 11:25 | P.CARDCATH ---
Date of Procedure: 06/30/20 Preoperative Diagnosis: This is a 74-year-old gentleman with history of ischemic heart disease with previous stent placement of the mid left anterior descending coronary artery who has been experiencing episodes of paroxysmal nocturnal dyspnea. Patient had a nuclear stress test which did not reveal any significant ischemic changes. However because of ongoing symptoms and risk factors, patient is advised to have cardiac catheterization for definitive diagnosis. Patient was explained the risks and benefits of the procedure Postoperative Diagnosis: Stable coronary artery disease Procedure(s) Performed: Left heart catheterization without left ventriculography Description of Procedure: HISTORY: This is a 74-year-old gentleman with history of ischemic heart disease with previous stent placement of LAD done in 2018. Patient has been having intermittent paroxysmal nocturnal dyspnea. His stress test is negative for ischemia. However, patient continued to have symptoms and wanted to have definitive test. Patient is advised to have a cardiac catheterization CONSENT:I have discussed the risks, benefits and alternative therapies for the above-mentioned procedure and for both sedation/analgesia as well as necessary b lood product administration, if indicated, as they pertain to this patient. The patient has indicated understanding and acceptance of the risks and procedures discussed. PROCEDURE: Patient was brought to the lab in a fasting state. Patient was given some IV sedation. The right groin is infiltrated with lidocaine and right femoral artery was entered using Seldinger technique. A 6-Hebrew catheter was left in place and selective coronary arteriography was performed. Patient tolerated the procedure well. Femoral angiogram was performed and Angio-Seal was applied for hemostasis. No immediate complications were noted and patient was transferred to [facility] in a stable condition Conscious Sedation: Versed 1mg Fentanyl 59 g Duration 15minutes HEMODYNAMICS: The aortic pressure is about 110/70. Left ventricular end- diastolic pressure is 8-12. There was no gradient across the aortic valve SELECTIVE CORONARY ARTERIOGRAPHY: LEFT MAIN: Long with mild intimal disease without any critical lesions THE LEFT ANTERIOR DESCENDING CORONARY ARTERY: Good caliber vessel. Patent at the site of previous stent placement with mild in- stent stenosis. There is a small diagonal branch which has about 60% stenosis in the midportion THE LEFT CIRCUMFLEX AND IS CORONARY ARTERY:. This is a fair caliber vessel giving rise to good-sized intermediate-term OM branch. There is mild diffuse disease in the distal circumflex but no critical focal lesions THE RIGHT CORONARY ARTERY:. This is a dominant vessel giving rise to PDA and PLV. Mild intimal plaque without any significant focal disease LEFT VENTRICULOGRAPHY: Not performed FINAL IMPRESSION:. Stable coronary artery disease with mild diffuse intimal plaque in the mild to moderate disease in the diagonal. Mild in-stent stenosis of the LAD PLAN: Maximum medical therapy and risk factor modification PROGNOSIS: Fair
[2020-06-30] MEDS ORDERED: SODIUM CHLORIDE 0.9% 1,000 ML IV SCH (11:30)
[2020-06-30 13:53] VITALS: BP 107/63
[2020-06-30 14:46] VITALS: PULSE 72
== END 2020-06-30 16:12 | disposition home or self-care (01) ==
LOC: CATHCVL 09:31
PROVIDERS: ATTEND Internal Medicine Cardiovascular Disease
DX: I25.10 Atherosclerotic heart disease of native coronary artery without angina pectoris (principal); T82.855A Stenosis of coronary artery stent, initial encounter; I11.0 Hypertensive heart disease with heart failure; I50.32 Chronic diastolic (congestive) heart failure; I48.20 Chronic atrial fibrillation, unspecified; E78.2 Mixed hyperlipidemia; E78.00 Pure hypercholesterolemia, unspecified; Z79.02 Long term (current) use of antithrombotics/antiplatelets; Z79.899 Other long term (current) drug therapy; Z82.49 Family history of ischemic heart disease and other diseases of the circulatory system; Y84.9 Medical procedure, unspecified as the cause of abnormal reaction of the patient, or of later complication, without mention of misadventure at the time of the procedure
CPT/HCPCS: 93458; 80048; 85025; C1769 ×4; C1760; C1894; J2250; J2001; J3010; Q9967

== ENCOUNTER 2020-09-05 18:03 | Emergency (ER) | payer MEDICARE ==
--- NOTE | 2020-09-05 18:42 | ED ---
GI Bleed HPI - General Chief complaint: GI Bleed Stated complaint: diverticulitis Time Seen by Provider: 09/05/20 18:24 Source: patient, family, RN notes reviewed, old records reviewed Mode of arrival: ambulatory Limitations: no limitations - History of Present Illness Initial comments: This is a 74-year-old male history of diverticulosis in the past for episodes of GI bleeding in the past and later this who states he's had blood per rectum since last night getting worse today. He's had dark red clot some) red clots no overt abdominal pain. Per his he does look a little more pale usual. He's had no fevers chills nausea vomiting sweats no diarrhea other than with this related today he's had some diarrhea he was on Plavix he quit taking 2 days ago. No other blood thinners at this time. No other complaints or modifying factors at this time - Related Data Home Medications Medication Instructions Recorded Confirmed Simvastatin [Zocor] 20 mg PO HS 02/26/17 06/30/20 Tamsulosin HCl [Flomax] 0.4 mg PO BID 02/26/17 06/30/20 Zolpidem [Ambien] 10 mg PO HS 02/26/17 06/30/20 Clopidogrel [Plavix] 75 mg PO HS 06/01/18 06/30/20 Metoprolol Tartrate [Lopressor] 25 mg PO BID 06/01/18 06/30/20 allopurinoL [Zyloprim] 150 mg PO DAILY 06/01/18 06/30/20 Cholecalciferol [Vitamin D3 (25 5,000 unit PO DAILY 06/24/20 06/30/20 Mcg = 1000 Iu)] Lisinopril-Hctz 20-25 mg 1 tab PO DAILY 06/24/20 06/30/20 [Zestoretic 20-25] Aspirin 81 mg PO ONCE 06/30/20 06/30/20 Previous Rx's Medication Instructions Recorded Nitroglycerin Sl Tabs [Nitrostat] 0.4 mg SUBLINGUAL Q5M PRN #30 tab 06/02/18 Allergies Allergy/AdvReac Type Severity Reaction Status Date / Time No Known Allergies Allergy Verified 09/05/20 18:12 Review of Systems ROS Statement: Those systems with pertinent positive or pertinent negative responses have been documented in the HPI. ROS Other: All systems not noted in ROS Statement are negative. Past Medical History Past Medical History: Atrial Fibrillation, Chest Pain / Angina, Hyperlipidemia, Hypertension, Prostate Disorder Additional Past Medical History / Comment(s): diverticulosis. Gastric bleeds (x4) with blood transfusions/ iron. see Dr romo history and physical for cardiac history. hx gout History of Any Multi-Drug Resistant Organisms: None Reported Past Surgical History: Cholecystectomy, Heart Catheterization, Heart Catheterization With Stent, Joint Replacement, Orthopedic Surgery, Tonsillectomy Additional Past Surgical History / Comment(s): vasectomy, cataract right eye , repair of nasal surgery,cardioversion. Watchman procedure- Sep 29, 2017, total right knee , left hip replacement Past Anesthesia/Blood Transfusion Reactions: No Reported Reaction Additional Past Anesthesia/Blood Transfusion Reaction / Comment(s): blood transfusion with no problem Date of Last Stent Placement:: 06/01/18 Past Psychological History: No Psychological Hx Reported Smoking Status: Never smoker Past Alcohol Use History: Rare Past Drug Use History: None Reported - Past Family History Father Family Medical History: Coronary Artery Disease (CAD) Mother Family Medical History: No Reported History Brother(s) Family Medical History: Coronary Artery Disease (CAD) Additional Family Medical History / Comment(s): CABG x2 General Exam - General Exam Comments Initial Comments: This is a well-developed well-nourished awake alert oriented 3 male Limitations: no limitations General appearance: alert, in no apparent distress Head exam: Present: atraumatic, normocephalic, normal inspection Eye exam: Present: normal appearance, PERRL, EOMI. Absent: scleral icterus, conjunctival injection, periorbital swelling ENT exam: Present: normal exam, mucous membranes moist Neck exam: Present: normal inspection. Absent: tenderness, meningismus, lymphadenopathy Respiratory exam: Present: normal lung sounds bilaterally. Absent: respiratory distress, wheezes, rales, rhonchi, stridor Cardiovascular Exam: Present: regular rate, normal rhythm, normal heart sounds. Absent: systolic murmur, diastolic murmur, rubs, gallop, clicks GI/Abdominal exam: Present: soft, normal bowel sounds. Absent: distended, tenderness, guarding, rebound, rigid Rectal exam: Present: normal inspection, heme (+) stool Extremities exam: Present: normal inspection, full ROM, normal capillary refill. Absent: tenderness, pedal edema, joint swelling, calf tenderness Back exam: Present: normal inspection Neurological exam: Present: alert, oriented X3, CN II-XII intact Psychiatric exam: Present: normal affect, normal mood Skin exam: Present: warm, dry, intact, normal color. Absent: rash Course Vital Signs 09/05/20 18:08 Temperature 97.9 F Pulse Rate 84 Respiratory 17 Rate Blood Pressure 128/84 O2 Sat by Pulse 96 Oximetry Medical Decision Making - Medical Decision Making Patient is feeling much improved this time we had a long discussion regarding the findings and the symptoms. Patient was offered admission but would prefer to go home he will be discharged with return parameters discussed. He will otherwise follow up with his doctor. He has are in agreement with this. - Lab Data Result diagrams: 09/05/20 18:42 09/05/20 18:42 Lab Results 09/05/20 09/05/20 09/05/20 Range/Units 18:42 18:42 18:42 WBC 6.5 (3.8-10.6) k/uL RBC 4.63 (4.30-5.90) m/uL Hgb 15.2 (13.0-17.5) gm/dL Hct 46.7 (39.0-53.0) % MCV 101.0 H (80.0-100.0) fL MCH 32.8 (25.0-35.0) pg MCHC 32.5 (31.0-37.0) g/dL RDW 13.4 (11.5-15.5) % Plt Count 183 (150-450) k/uL Neutrophils % 69 % Lymphocytes % 17 % Monocytes % 8 % Eosinophils % 3 % Basophils % 0 % Neutrophils # 4.5 (1.3-7.7) k/uL Lymphocytes # 1.1 (1.0-4.8) k/uL Monocytes # 0.5 (0-1.0) k/uL Eosinophils # 0.2 (0-0.7) k/uL Basophils # 0.0 (0-0.2) k/uL PT 11.8 (9.0-12.0) sec INR 1.2 H (<1.2) APTT 24.0 (22.0-30.0) sec Sodium (137-145) mmol/L Potassium (3.5-5.1) mmol/L Chloride (98-107) mmol/L Carbon Dioxide (22-30) mmol/L Anion Gap mmol/L BUN (9-20) mg/dL Creatinine (0.66-1.25) mg/dL Est GFR (CKD-EPI)AfAm (>60 ml/min/1.73 sqM) Est GFR (CKD-EPI)NonAf (>60 ml/min/1.73 sqM) Glucose (74-99) mg/dL Calcium (8.4-10.2) mg/dL Total Bilirubin (0.2-1.3) mg/dL AST (17-59) U/L ALT (4-49) U/L Alkaline Phosphatase (38-126) U/L Creatine Kinase (55-170) U/L Troponin I (0.000-0.034) ng/mL Total Protein (6.3-8.2) g/dL Albumin (3.5-5.0) g/dL Stool Occult Blood Positive (Negative) Blood Type Blood Type Recheck Bld Type Recheck Status Antibody Screen Spec Expiration Date 09/05/20 09/05/20 09/05/20 Range/Units 18:42 18:42 18:42 WBC (3.8-10.6) k/uL RBC (4.30-5.90) m/uL Hgb (13.0-17.5) gm/dL Hct (39.0-53.0) % MCV (80.0-100.0) fL MCH (25.0-35.0) pg MCHC (31.0-37.0) g/dL RDW (11.5-15.5) % Plt Count (150-450) k/uL Neutrophils % % Lymphocytes % % Monocytes % % Eosinophils % % Basophils % % Neutrophils # (1.3-7.7) k/uL Lymphocytes # (1.0-4.8) k/uL Monocytes # (0-1.0) k/uL Eosinophils # (0-0.7) k/uL Basophils # (0-0.2) k/uL PT (9.0-12.0) sec INR (<1.2) APTT (22.0-30.0) sec Sodium 138 (137-145) mmol/L Potassium 4.2 (3.5-5.1) mmol/L Chloride 107 (98-107) mmol/L Carbon Dioxide 23 (22-30) mmol/L Anion Gap 8 mmol/L BUN 22 H (9-20) mg/dL Creatinine 1.25 (0.66-1.25) mg/dL Est GFR (CKD-EPI)AfAm 65 (>60 ml/min/1.73 sqM) Est GFR (CKD-EPI)NonAf 56 (>60 ml/min/1.73 sqM) Glucose 115 H (74-99) mg/dL Calcium 8.9 (8.4-10.2) mg/dL Total Bilirubin 1.0 (0.2-1.3) mg/dL AST 42 (17-59) U/L ALT 36 (4-49) U/L Alkaline Phosphatase 65 (38-126) U/L Creatine Kinase 49 L (55-170) U/L Troponin I <0.012 (0.000-0.034) ng/mL Total Protein 6.8 (6.3-8.2) g/dL Albumin 4.0 (3.5-5.0) g/dL Stool Occult Blood (Negative) Blood Type O Positive Blood Type Recheck O Pos Bld Type Recheck Status No Antibody Screen NEGATIVE Spec Expiration Date 09/08/2020 - 4519 - Radiology Data Radiology results: report reviewed, image reviewed (Did review the imaging and report no acute findings. Patient does have evidence of diverticulosis but no is to complete report) Disposition Clinical Impression: GI bleed Disposition: HOME SELF-CARE Condition: Good Instructions (If sedation given, give patient instructions): Gastrointestinal Bleeding (ED) Is patient prescribed a controlled substance at d/c from ED?: No Referrals: Brandon Canales MD [Primary Care Provider] - 1-2 days
[2020-09-05 18:53] LABS: Basophils % (A) 0 %; Eosinophils # (A) 0.2 k/uL (0-0.7); Eosinophils % (A) 3 %; HCT 46.7 % (39.0-53.0); HGB 15.2 gm/dL (13.0-17.5); Lymphocytes # (A) 1.1 k/uL (1.0-4.8); Lymphocytes % (A) 17 %; MCH 32.8 pg (25.0-35.0); MCHC 32.5 g/dL (31.0-37.0); Mean Platelet Volume 7.3; Monocytes # (A) 0.5 k/uL (0-1.0); Monocytes % (A) 8 %; Neutrophils # (A) 4.5 k/uL (1.3-7.7); Neutrophils % (A) 69 %; Platelet Count 183 k/uL (150-450); RBC 4.63 m/uL (4.30-5.90); RDW 13.4 % (11.5-15.5); WBC 6.5 k/uL (3.8-10.6)
[2020-09-05 19:02] LABS: INR 1.2 (<1.2); Prothrombin Time 11.8 sec (9.0-12.0)
[2020-09-05 19:03] LABS: Calcium 8.9 mg/dL (8.4-10.2); Potassium 4.2 mmol/L (3.5-5.1); Total Protein 6.8 g/dL (6.3-8.2)
--- NOTE | 2020-09-05 19:14 | XR ---
EXAMINATION TYPE: XR KUB DATE OF EXAM: 09/05/2020 COMPARISON: 09/24/2013 INDICATION: GI bleeding TECHNIQUE: Single view abdomen in the frontal upright view FINDINGS: There is a normal colonic bowel gas pattern. No free air is evident. No suspicious differential air-f luid levels are present. Psoas margins are normal. No organomegaly is present. There is a left hip prosthesis is evident IMPRESSION: 1. Unremarkable Abdomen
--- NOTE | 2020-09-05 21:07 | CT ---
EXAMINATION TYPE: CT abdomen pelvis w con DATE OF EXAM: 09/05/2020 COMPARISON: 02/05/2014 INDICATION: generalized abdominal pain DLP: 2235.3 mGycm, Automated exposure control for dose reduction was used. CONTRAST: 100 mL of Isovue 300. Study performed without Oral Contrast TECHNIQUE: Axial images were obtained from above the diaphragm to the pubic rami in the axial plane a t 5 mm thick sections. Reconstructed images are reviewed on the computer in the coronal plane. FINDINGS: Limited CT sections are obtained the lung bases. The lung bases are clear. CT ABDOMEN: Small hiatal hernia is present. Liver: There is a 1.9 cm cyst in the right lobe liver measuring -2 Hounsfield units. Mild diffuse fat ty infiltration is the liver. Spleen: Normal Pancreas: Normal Adrenal glands: The adrenal glands are normal. Gallbladder: Surgically absent. Kidneys: No masses are evident. No hydronephrosis is present. No cysts are present. Delayed images were obtained through the kidneys, which remain unremarkable. Aorta: Vascular calcification is within the aorta. Inferior vena cava: Normal. CT PELVIS: Beam hardening artifact from a left hip prosthesis limits lower pelvis evaluation Loops of bowel within the abdomen and pelvis are normal. The study is without contrast limiting b owel evaluation. Multiple diverticuli are within the sigmoid colon. Appendix: Normal as visualized. Urinary bladder: There may be some urinary bladder wall thickening diffusely. Genitourinary structures: Prostate is enlarged Osseous structures: No suspicious lytic or sclerotic lesions. Left hip prosthesis is present. Facet d egenerative changes are within the lumbar spine IMPRESSIONS: 1. Small hiatal hernia. 2. Hepatic cyst. Mild fatty infiltration liver is also present. 3. Diverticulosis without acute diverticulitis sigmoid colon 4. Prostate hypertrophy. 5. Mild diffuse urinary bladder wall thickening may be present.
[2020-09-05 22:18] VITALS: BP 138/85; PULSE 94; RESP 18; TEMP 97.8
== END 2020-09-05 22:18 | disposition home or self-care (01) ==
LOC: EC 18:03
DX: K92.2 Gastrointestinal hemorrhage, unspecified (principal); I10 Essential (primary) hypertension; E78.5 Hyperlipidemia, unspecified; I20.9 Angina pectoris, unspecified; M10.9 Gout, unspecified; Z79.02 Long term (current) use of antithrombotics/antiplatelets; Z79.899 Other long term (current) drug therapy; Z79.82 Long term (current) use of aspirin; Z96.651 Presence of right artificial knee joint; Z90.49 Acquired absence of other specified parts of digestive tract; Z96.642 Presence of left artificial hip joint
CPT/HCPCS: 36415; 86900; 86901; 80053; 82550; 84484; 85025; 85610; 85730; 86850; 82272; 74018; 74177; 99285; Q9967

== ENCOUNTER 2020-09-13 22:40 | Emergency (ER) | payer MEDICARE ==
[2020-09-13 22:57] VITALS: TEMP 98.4
--- NOTE | 2020-09-13 23:24 | ED ---
GI Bleed HPI - General Chief complaint: GI Bleed Stated complaint: abd pain Time Seen by Provider: 09/13/20 23:17 Source: patient Mode of arrival: ambulatory Limitations: no limitations - History of Present Illness Initial comments: Jose is a pleasant v4-year-old [place] with a history of A. fib on Plavix who presents the ER today for evaluation of a GI bleed. Patient was seen and evaluated on September 05, CT scan at that time confirm that he had some diverticulitis. Patient hasn't had some mild blood in his stool at that time but improved. He took his antibiotics and his diverticulitis pain and symptoms improved. Patient reports that this morning he had a bowel movement with bright red blood, he felt okay throughout the day but around 9 PM tonight had 2 more bowel movements that were strictly blood. He denies any chest pain, palpitations or lightheadedness. He is still taking Plavix. He reports a long history of recurrent GI bleeds in the past. - Related Data Home Medications Medication Instructions Recorded Confirmed Simvastatin [Zocor] 20 mg PO HS 02/26/17 06/30/20 Tamsulosin HCl [Flomax] 0.4 mg PO BID 02/26/17 06/30/20 Zolpidem [Ambien] 10 mg PO HS 02/26/17 06/30/20 Clopidogrel [Plavix] 75 mg PO HS 06/01/18 06/30/20 Metoprolol Tartrate [Lopressor] 25 mg PO BID 06/01/18 06/30/20 allopurinoL [Zyloprim] 150 mg PO DAILY 06/01/18 06/30/20 Cholecalciferol [Vitamin D3 (25 5,000 unit PO DAILY 06/24/20 06/30/20 Mcg = 1000 Iu)] Lisinopril-Hctz 20-25 mg 1 tab PO DAILY 06/24/20 06/30/20 [Zestoretic 20-25] Aspirin 81 mg PO ONCE 06/30/20 06/30/20 Previous Rx's Medication Instructions Recorded Nitroglycerin Sl Tabs [Nitrostat] 0.4 mg SUBLINGUAL Q5M PRN #30 tab 06/02/18 Allergies Allergy/AdvReac Type Severity Reaction Status Date / Time No Known Allergies Allergy Verified 09/13/20 22:57 Review of Systems ROS Statement: Those systems with pertinent positive or pertinent negative responses have been documented in the HPI. ROS Other: All systems not noted in ROS Statement are negative. Past Medical History Past Medical History: Atrial Fibrillation, Chest Pain / Angina, Hyperlipidemia, Hypertension, Prostate Disorder Additional Past Medical History / Comment(s): diverticulosis. Gastric bleeds (x4) with blood transfusions/ iron. see Dr romo history and physical for cardiac history. hx gout History of Any Multi-Drug Resistant Organisms: None Reported Past Surgical History: Cholecystectomy, Heart Catheterization, Heart Catheterization With Stent, Joint Replacement, Orthopedic Surgery, Tonsillectomy Additional Past Surgical History / Comment(s): vasectomy, cataract right eye , repair of nasal surgery,cardioversion. Watchman procedure- Sep 29, 2017, total right knee , left hip replacement Past Anesthesia/Blood Transfusion Reactions: No Reported Reaction Additional Past Anesthesia/Blood Transfusion Reaction / Comment(s): blood transfusion with no problem Date of Last Stent Placement:: 06/01/18 Past Psychological History: No Psychological Hx Reported Smoking Status: Never smoker Past Alcohol Use History: Rare Past Drug Use History: None Reported - Past Family History Father Family Medical History: Coronary Artery Disease (CAD) Mother Family Medical History: No Reported History Brother(s) Family Medical History: Coronary Artery Disease (CAD) Additional Family Medical History / Comment(s): CABG x2 General Exam - General Exam Comments Initial Comments: Physical Exam GENERAL: Patient is well-developed and well-nourished. Patient is nontoxic and well- hydrated and is in no distress. HENT: Normocephalic, Atraumatic. EYES: PERRL, EOMI no conjunctival pallor PULMONARY: Unlabored respirations. No audible rales rhonchi or wheezing was noted. CARDIOVASCULAR: There is a regular rate and rhythm without any murmurs gallops or rubs. no tachycardia ABDOMEN: Soft and nontender with normal bowel sounds. SKIN: Skin is clear with no lesions or rashes and otherwise unremarkable. : Deferred NEUROLOGIC: Patient is alert and oriented x3. Moving all extremities spontaneously MUSCULOSKELETAL: Normal extremities with adequate strength and full range of motion. No lower extremity swelling or edema. No calf tenderness. PSYCHIATRIC: Normal psychiatric evaluation. Limitations: no limitations Course Vital Signs 09/13/20 22:53 Temperature 98.4 F Pulse Rate 78 Respiratory 18 Rate Blood Pressure 106/72 O2 Sat by Pulse 97 Oximetry Medical Decision Making - Medical Decision Making the patient was seen and evaluated history is obtained from the patient, at bedside and review of medical record Patient hemodynamically stable reporting 3 episodes of bright red blood per rectum he has one half weeks after having acute diverticulitis He has a history of this Labs were obtained and resulted with no acute abnormalities hemoglobin is 14.5 patient rate hemodynamically stable with no further bleeding throughout his stay in the ER Results were discussed with the patient I did discussed disposition options including observation versus discharge home given that were in the middle the COVID 19 Patient didn't make patient would prefer discharge home as he feels that a safer this time. I agree the patient is safe for discharge home. Close return parameters were discussed patient was discharged home in stable condition - Lab Data Result diagrams: 09/13/20 23:18 09/13/20 23:18 Lab Results 09/13/20 09/13/20 09/13/20 Range/Units 23:18 23:18 23:18 WBC 7.2 (3.8-10.6) k/uL RBC 4.37 (4.30-5.90) m/uL Hgb 14.5 (13.0-17.5) gm/dL Hct 43.3 (39.0-53.0) % MCV 99.0 (80.0-100.0) fL MCH 33.1 (25.0-35.0) pg MCHC 33.4 (31.0-37.0) g/dL RDW 13.4 (11.5-15.5) % Plt Count 236 (150-450) k/uL Neutrophils % 61 % Lymphocytes % 23 % Monocytes % 9 % Eosinophils % 3 % Basophils % 1 % Neutrophils # 4.3 (1.3-7.7) k/uL Lymphocytes # 1.6 (1.0-4.8) k/uL Monocytes # 0.6 (0-1.0) k/uL Eosinophils # 0.2 (0-0.7) k/uL Basophils # 0.1 (0-0.2) k/uL PT 11.9 (9.0-12.0) sec INR 1.2 H (<1.2) APTT 24.4 (22.0-30.0) sec Sodium 139 (137-145) mmol/L Potassium 4.1 (3.5-5.1) mmol/L Chloride 107 (98-107) mmol/L Carbon Dioxide 25 (22-30) mmol/L Anion Gap 7 mmol/L BUN 24 H (9-20) mg/dL Creatinine 1.40 H (0.66-1.25) mg/dL Est GFR (CKD-EPI)AfAm 57 (>60 ml/min/1.73 sqM) Est GFR (CKD-EPI)NonAf 49 (>60 ml/min/1.73 sqM) Glucose 112 H (74-99) mg/dL Plasma Lactic Acid Emmett (0.7-2.0) mmol/L Calcium 8.8 (8.4-10.2) mg/dL Total Bilirubin 0.8 (0.2-1.3) mg/dL AST 43 (17-59) U/L ALT 34 (4-49) U/L Alkaline Phosphatase 63 (38-126) U/L Troponin I (0.000-0.034) ng/mL Total Protein 6.8 (6.3-8.2) g/dL Albumin 4.1 (3.5-5.0) g/dL 09/13/20 09/13/20 Range/Units 23:18 23:19 WBC (3.8-10.6) k/uL RBC (4.30-5.90) m/uL Hgb (13.0-17.5) gm/dL Hct (39.0-53.0) % MCV (80.0-100.0) fL MCH (25.0-35.0) pg MCHC (31.0-37.0) g/dL RDW (11.5-15.5) % Plt Count (150-450) k/uL Neutrophils % % Lymphocytes % % Monocytes % % Eosinophils % % Basophils % % Neutrophils # (1.3-7.7) k/uL Lymphocytes # (1.0-4.8) k/uL Monocytes # (0-1.0) k/uL Eosinophils # (0-0.7) k/uL Basophils # (0-0.2) k/uL PT (9.0-12.0) sec INR (<1.2) APTT (22.0-30.0) sec Sodium (137-145) mmol/L Potassium (3.5-5.1) mmol/L Chloride (98-107) mmol/L Carbon Dioxide (22-30) mmol/L Anion Gap mmol/L BUN (9-20) mg/dL Creatinine (0.66-1.25) mg/dL Est GFR (CKD-EPI)AfAm (>60 ml/min/1.73 sqM) Est GFR (CKD-EPI)NonAf (>60 ml/min/1.73 sqM) Glucose (74-99) mg/dL Plasma Lactic Acid Emmett 1.4 (0.7-2.0) mmol/L Calcium (8.4-10.2) mg/dL Total Bilirubin (0.2-1.3) mg/dL AST (17-59) U/L ALT (4-49) U/L Alkaline Phosphatase (38-126) U/L Troponin I <0.012 (0.000-0.034) ng/mL Total Protein (6.3-8.2) g/dL Albumin (3.5-5.0) g/dL Disposition Clinical Impression: Lower GI bleed Disposition: HOME SELF-CARE Condition: Stable Additional Instructions: As we discussed you have stable vital signs and hemoglobin At this time there is no indication for admission to the hospital Follow up with your primary care doctor this week for re-evaluation Return to the ER for any increased bleeding, development of chest pain, palpitations, shortness of breath or any new or concerning symptoms Is patient prescribed a controlled substance at d/c from ED?: No Referrals: Brandon Canales MD [Primary Care Provider] - 1-2 days
[2020-09-13 23:33] LABS: Basophils # (A) 0.1 k/uL (0-0.2); Basophils % (A) 1 %; Eosinophils # (A) 0.2 k/uL (0-0.7); Eosinophils % (A) 3 %; HCT 43.3 % (39.0-53.0); HGB 14.5 gm/dL (13.0-17.5); Lymphocytes # (A) 1.6 k/uL (1.0-4.8); Lymphocytes % (A) 23 %; MCH 33.1 pg (25.0-35.0); MCHC 33.4 g/dL (31.0-37.0); Monocytes # (A) 0.6 k/uL (0-1.0); Monocytes % (A) 9 %; Neutrophils # (A) 4.3 k/uL (1.3-7.7); Neutrophils % (A) 61 %; Platelet Count 236 k/uL (150-450); RBC 4.37 m/uL (4.30-5.90); RDW 13.4 % (11.5-15.5); WBC 7.2 k/uL (3.8-10.6)
[2020-09-13 23:43] LABS: Albumin 4.1 g/dL (3.5-5.0); Calcium 8.8 mg/dL (8.4-10.2); Potassium 4.1 mmol/L (3.5-5.1); Total Bilirubin 0.8 mg/dL (0.2-1.3); Total Protein 6.8 g/dL (6.3-8.2)
[2020-09-13 23:44] LABS: INR 1.2 (<1.2); Partial Thromboplastin Time 24.4 sec (22.0-30.0); Prothrombin Time 11.9 sec (9.0-12.0)
[2020-09-14 00:38] VITALS: BP 117/74; PULSE 97; RESP 16
== END 2020-09-14 00:38 | disposition home or self-care (01) ==
LOC: EC 22:40
DX: K92.2 Gastrointestinal hemorrhage, unspecified (principal); I10 Essential (primary) hypertension; I48.91 Unspecified atrial fibrillation; E78.5 Hyperlipidemia, unspecified; Z79.02 Long term (current) use of antithrombotics/antiplatelets; Z79.899 Other long term (current) drug therapy; Z79.82 Long term (current) use of aspirin; Z96.642 Presence of left artificial hip joint; Z95.5 Presence of coronary angioplasty implant and graft
CPT/HCPCS: 36415; 80053; 83605; 84484; 85025; 85610; 85730; 86850; 86900; 86901; 99284

== ENCOUNTER → 2021-05-06 | Outpatient (CLI) | payer MEDICARE | END | disposition home or self-care (01) | CPT/HCPCS: 36415; 82306; 83735; 83970; 84550 ==

== ENCOUNTER → 2021-05-18 | Outpatient (CLI) | payer MEDICARE | END | disposition home or self-care (01) | LOC: LABWHC1 11:44 | PROVIDERS: ATTEND Urology | DX: N40.1 Benign prostatic hyperplasia with lower urinary tract symptoms (principal) | CPT/HCPCS: 36415; 84153; 84154 ==

== ENCOUNTER → 2021-11-19 | Outpatient (CLI) | payer MEDICARE ==
[2021-11-19 23:33] LABS: African American GFR (CKD) 62.7 (60.0-200.0); Anion Gap 8.4 mmol/L (10.00-18.00); BUN/Creat Ratio 14.96 Ratio (12.00-20.00); Calcium 9.4 mg/dL (8.7-10.3); Carbon Dioxide 29.1 mmol/L (20.0-27.5); Non-African American GFR(CKD) 54.1 (60.0-200.0); Potassium 4.3 mmol/L (3.5-5.5)
== END | disposition home or self-care (01) ==
LOC: LABWHC1 14:48
PROVIDERS: ATTEND Urology
DX: N40.1 Benign prostatic hyperplasia with lower urinary tract symptoms (principal)
CPT/HCPCS: 36415; 80048; 84153

== ENCOUNTER → 2023-05-22 | Outpatient (CLI) | payer MEDICARE ==
--- NOTE | 2023-05-22 08:31 | US ---
EXAMINATION TYPE: US kidneys/renal and bladder DATE OF EXAM: 05/22/2023 COMPARISON: CT & US CLINICAL INDICATION: Male, 77 years old with history of N18.31 KIDNEY DISEASE; Kidney disease EXAM MEASUREMENTS: Right Kidney: 9.7 x 5.9 x 6.5 cm Left Kidney: 10.7 x 5.5 x 5.1 cm Right Kidney: No evidence of hydro, sonographic "sweat sign" as visualized on prior associated with r enal failure Left Kidney: No evidence of hydro, sonographic "sweat sign" as visualized on prior associated with re nal failure Bladder: Not fully distended, pt states he drank 32 oz. water Bilateral Jets seen: No IMPRESSION: 1. No evidence of hydronephrosis. No renal calculi visualized. 2. Mild cortical thinning compatible with medical renal disease.
== END | disposition home or self-care (01) ==
LOC: RADUSWWP 06:58
PROVIDERS: ATTEND Internal Medicine
DX: N18.31 Chronic kidney disease, stage 3a (principal)
CPT/HCPCS: 76770

== ENCOUNTER 2023-09-08 09:08 | Inpatient (IN) | payer MEDICARE ==
--- NOTE | 2023-09-08 09:58 | CT ---
EXAMINATION TYPE: CT brain wo con DATE OF EXAM: 09/08/2023 COMPARISON: None HISTORY: Rt arm drift, slurred speech CT DLP: 1242 mGycm Automated exposure control for dose reduction was used. FINDINGS: There is an area of sulcal effacement and low attenuation involving the left parietal and temporal lo bes with portions of the occipital lobes suspected to be involved by compatible with acute ischemia. No midline shift. No definite acute hemorrhage. There is a hyperdensity noted on axial image 31 withi n the left MCA which may represent an area of acute thrombosis. 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 Abnormal attenuation involving the basal ganglia likely in the basis of previous remote l acunar infarct. Calvarium is intact. Nasal septal deviation. Orbits are normal. There is intracranial atherosclerotic changes. Basilar artery is somewhat prominent in size. IMPRESSION: THE FINDINGS ARE HIGHLY SUGGESTIVE OF ACUTE ISCHEMIC CHANGE INVOLVING THE LEFT PARIETAL, TEMPORAL AND POSSIBLY A SMALL PORTION OF THE LEFT OCCIPITAL LOBE WITH NO MIDLINE SHIFT OR ACUTE HEMORRHAGE. SABAS ELATE FOR ACUTE STROKE.
--- NOTE | 2023-09-08 10:07 | ED ---
General Adult HPI - General Chief complaint: Neuro Symptoms/Deficit Stated complaint: Altered Mental Status Time Seen by Provider: 09/08/23 09:18 Source: family, RN notes reviewed, old records reviewed Mode of arrival: ambulatory Limitations: no limitations - History of Present Illness Initial comments: Patient is a 77-year-old male with past medical history remarkable for atrial fibrillation with a watchman device, hypertension, hyperlipidemia, GI bleeds no longer on blood thinning medications who presents emergency department for strokelike symptoms. Patient was acting abnormally late last night around midnight or 1 AM per patient's . Seemed a little more agitated. When I keep CPAP on. Getting up to go to the kitchen. This is atypical for the patient. When he awoke this morning, he was unable to communicate and was aphasic. Patient's believes last known well was at approximately 11 PM when he was acting normally. Throughout the night he was acting atypically. His no longer on blood thinners. No trauma. Was aphasic this morning at 06:30. Patient was brought here at approximately 9 AM for further evaluation. Patient is unable to provide any history due to his expressive aphasia.Patient did trip and fall forward on his way in to the emergency department. Fell onto his right chest where he has some mild tenderness with palpation and with movement of the right arm. No other obvious injuries. No other tenderness on palpation. Patient's does not believe he hit his head. - Related Data Home Medications Medication Instructions Recorded Confirmed Zolpidem [Ambien] 10 mg PO HS 02/26/17 09/08/23 Metoprolol Tartrate [Lopressor] 25 mg PO BID 06/01/18 09/08/23 Lisinopril-Hctz 20-25 mg 1 tab PO DAILY 06/24/20 09/08/23 [Zestoretic 20-25] Pantoprazole [Protonix] 40 mg PO HS 09/08/23 09/08/23 Rosuvastatin [Crestor] 10 mg PO HS 09/08/23 09/08/23 allopurinoL 100 mg PO DAILY 09/08/23 09/08/23 Previous Rx's Medication Instructions Recorded Nitroglycerin Sl Tabs [Nitrostat] 0.4 mg SUBLINGUAL Q5M PRN #30 tab 06/02/18 Allergies Allergy/AdvReac Type Severity Reaction Status Date / Time aspirin AdvReac Excessive Verified 09/08/23 09:49 Bleeding Review of Systems ROS Statement: Those systems with pertinent positive or pertinent negative responses have been documented in the HPI. ROS Other: All systems not noted in ROS Statement are negative. Past Medical History Past Medical History: Atrial Fibrillation, Chest Pain / Angina, Hyperlipidemia, Hypertension, Prostate Disorder Additional Past Medical History / Comment(s): diverticulosis. Gastric bleeds (x4) with blood transfusions/ iron. see Dr romo history and physical for cardiac history. hx gout History of Any Multi-Drug Resistant Organisms: None Reported Past Surgical History: Cholecystectomy, Heart Catheterization, Heart Cathete rization With Stent, Joint Replacement, Orthopedic Surgery, Tonsillectomy Additional Past Surgical History / Comment(s): vasectomy, cataract right eye , repair of nasal surgery,cardioversion. Watchman procedure- Sep 29, 2017, total right knee , left hip replacement Past Anesthesia/Blood Transfusion Reactions: No Reported Reaction Additional Past Anesthesia/Blood Transfusion Reaction / Comment(s): blood transfusion with no problem Date of Last Stent Placement:: 06/01/18 Past Psychological History: No Psychological Hx Reported Smoking Status: Never smoker Past Alcohol Use History: Rare Past Drug Use History: None Reported - Past Family History Father Family Medical History: Coronary Artery Disease (CAD) Mother Family Medical History: No Reported History Brother(s) Family Medical History: Coronary Artery Disease (CAD) Additional Family Medical History / Comment(s): CABG x2 General Exam - General Exam Comments Initial Comments: General: Appears in no acute distress. HEAD: Normal with no signs of head trauma. EYES: PERRLA, EOMI, conjunctiva normal, no discharge. Pupils are 3 mm and equal bilaterally. ENT: Hearing grossly intact, normal oropharynx. RESPIRATORY: Clear breath sounds bilaterally. No wheezes, rales, or rhonchi. C/V: Regular rate and rhythm. S1 and S2 auscultated, peripheral pulses 2+ and intact throughout ABD: Abd is soft, nontender, nondistended EXT: Normal range of motion, no obvious deformity SKIN: No rashes or lesions observed on exposed skin. NEURO: Alert and oriented times 1. NIH is at least 5. It is difficult to obtain an accurate NIH to the patient's expressive aphasia. Patient receives at least 1 point for right arm drift, 1 point for only answering 1 question, and 1 point for ataxia in RUE, and 2 points for aphasia. He answers simple yes or no questions but no extensive answers. Is able to say what his 's name is. Limitations: no limitations Course Vital Signs 09/08/23 09/08/23 09/08/23 09:15 10:03 12:39 Temperature 98 F Pulse Rate 88 84 78 Respiratory 20 20 18 Rate Blood Pressure 159/78 175/90 158/87 O2 Sat by Pulse 99 92 L 96 Oximetry 09/08/23 13:54 Temperature Pulse Rate 82 Respiratory 22 Rate Blood Pressure O2 Sat by Pulse 98 Oximetry Medical Decision Making - Medical Decision Making Was pt. sent in by a medical professional or institution (, PA, [employer] TURNER, urgent care, hospital, or penitentiary...) When possible be specific @ -No Did you speak to anyone other than the patient for history (EMS, parent, family, police, friend...)? What history was obtained from this source @ -Patient's presents with patient and provides most of the history. Did you review nursing and triage notes (agree or disagree)? Why? @ -I reviewed and agree with nursing and triage notes Were old charts reviewed (outside hosp., previous admission, EMS record, old EKG, old radiological studies, urgent care reports/EKG's, penitentiary records)? Report findings @ -Charts reviewed Differential Diagnosis (chest pain, altered mental status, abdominal pain women, abdominal pain men, vaginal bleeding, weakness, fever, dyspnea, syncope, headache, dizziness, GI bleed, back pain, seizure, CVA, palpatations, mental health, musculoskeletal)? @ -Differential CVA Ischemic stroke, hemorrhagic stroke, brain tumor, atypical migraine, Wernicke's encephalopathy, seizure, multiple sclerosis, meningitis, encephalitis, hypoglycemia, Guillain-Hudson, electrolytes disturbance, myasthenia gravis.... This is not meant to be an all-inclusive list EKG interpreted by me (3pts min.). @ -As above X-rays interpreted by me (1pt min.). @ -Chest x-ray reveals mild pulmonary vascular congestion. CT interpreted by me (1pt min.). @ -CT brain reveals findings suggestive of acute ischemic stroke in the left temporal and parietal region. Left MCA distribution. U/S interpreted by me (1pt. min.). @ -Bilateral venous duplexes were negative for DVT. What testing was considered but not performed or refused? (CT, X-rays, U/S, labs)? Why? @ -None What meds were considered but not given or refused? Why? @ -None Did you discuss the management of the patient with other professionals (professionals i.e. , PA, [facility] TURNER, lab, RT, psych nurse, 7th grade social studies teacher, head machinist, teacher, probation officer, case maker)? Give summary @ -Discussed management with Dr. Rowe of neuro critical care who was in agreement with the plan and in agreement the patient is not a TPA candidate as patient presents essentially with a weight of stroke with last known well at approximately [address] Jones contact me regarding results of CT brain without contrast.Dr. Srinivasan contacted me about CT angiogram of the head and neck revealed left distal M3 branch occlusion. Radiology also conveyed that there is a possible incidental right upper lobe PE. Discussed with Dr. Rowe again who reviewed the images and determined that there is no intervention at this time. Blockages in the distal segment. No longer vessel occlusion. Recommended Plavix to the patient's history with aspirin and admission for evaluation by neurology. Recommended ICU admission for monitoring. Discussed the case with ICU attending Dr. Celeste who accepted the patient ICU and was in agreement with the plan for workup to evaluate for possibility of PE based on CT imaging. This includes VQ scans, lower extremity duplexes, echo. Discussed the case with who accepted the patient onto his service. He was in also in agreement the plan. Was smoking cessation discussed for >3mins.? @ -No Was critical care preformed (if so, how long)? @ -Yes, 58 minutes Were there social determinants of health that impacted care today? How? (Homelessness, low income, unemployed, alcoholism, drug addiction, transportation, low edu. Level, literacy, decrease access to med. care, intermediate, rehab)? @ -No Was there de-escalation of care discussed even if they declined (Discuss DNR or withdrawal of care, Hospice)? DNR status @ -No What co-morbidities impacted this encounter? (DM, HTN, Smoking, COPD, CAD, Cancer, CVA, ARF, Chemo, Hep., AIDS, mental health diagnosis, sleep apnea, morbid obesity)? @ -Atrial fibrillation no longer on blood thinners. Was patient admitted / discharged? Hospital course, mention meds given and route, prescriptions, significant lab abnormalities, going to OR and other pertinent info. @ -Based on the patient's presentation and physical exam, presents appearing to expenses stroke at home overnight. Last known well was approximately 11 PM last night. Woke up with his current symptoms. NIH is approximately 5. His no longer on blood thinning medications. However patient is not a TPA candidate at this time is risks far outweigh the benefits due to risk of bleeding as it has at least been over 4-1/2 hours from symptom onset. Patient's vitals are within acceptable limits. Slightly hypertensive. Code stroke was activated. I spoke with Dr. Rowe of neuro critical care who was in agreement with the plan. Was also in agreement that patient is not a TPA candidate due to risks far outweigh the benefits and the patient being outside of the window. Was otherwise in agreement with the workup. EKG shows atrial fibrillation which patient has a history of. No obvious acute ischemic process. CT brain reveals findings suggestive of acute ischemic changes of the left parietal temporal as well as left occipital lobe with no obvious shift or hemorrhage. Concern for acute stroke. CT angiogram does show blockages of the distal segments of the left M3 branch. Radiology also con tacted me informing on CT angiogram that they saw possible right upper lobe PE. Could also be artifact. Recommended further evaluation. Patient's laboratory studies are remarkable for nondetectable troponin. BNP is within normal limits for the patient's age, patient has some mild hematuria of unknown significance. Remainder of the workup relatively unremarkable. EKG shows atrial fibrillation which is known for the patient. I did speak with Dr. Rowe of neuro critical care over the phone who evaluated the CT scans and determined that the M3 occlusion is too distal for intervention. No intervention available for the patient. Recommended admission to our ICU for medical management and monitoring. Recommended Plavix. Patient was given Plavix. I spoke with Dr. Romero of neurology to update him on the patient's case and he was in agreement with the plan. I also spoke with Dr. Dupont of ICU and pulmonology who was in agreement with the plan for ICU admission. In regards to the patient's PE, we both agree to hold heparin at this time until further workup is complete as the patient is hemodynamically stable, and not hypoxic. We will obtain venous duplex is, echo, V/Q scan. He was in agreement with this plan. I contacted the admitting physician Dr. Naranjo who accepted the admission. I spoke with patient's family including daughter and multiple times and updated them on the patient's condition. I also gave the patient. He was admitted in serious condition of ICU. VQ scan is pending. Undiagnosed new problem with uncertain prognosis? @ -No Drug Therapy requiring intensive monitoring for toxicity (Heparin, Nitro, Insulin, Cardizem)? @ -No Were any procedures done? @ -No Diagnosis/symptom? @ -CVA, possible PE Acute, or Chronic, or Acute on Chronic? @ -Acute Uncomplicated (without systemic symptoms) or Complicated (systemic symptoms)? @ -Complicated Side effects of treatment? @ -none Exacerbation, Progression, or Severe Exacerbation] @ -no Poses a threat to life or bodily function? @ -Yes - Lab Data Result diagrams: 09/08/23 09:58 09/08/23 09:58 Lab Results 09/08/23 09/08/23 09/08/23 Range/Units 09:58 09:58 09:58 WBC 6.5 (3.8-10.6) k/uL RBC 4.56 (4.30-5.90) m/uL Hgb 15.3 (13.0-17.5) gm/dL Hct 45.6 (39.0-53.0) % MCV 99.9 (80.0-100.0) fL MCH 33.5 (25.0-35.0) pg MCHC 33.6 (31.0-37.0) g/dL RDW 13.3 (11.5-15.5) % Plt Count 192 (150-450) k/uL MPV 8.0 Neutrophils % 77 % Lymphocytes % 11 % Monocytes % 8 % Eosinophils % 1 % Basophils % 0 % Neutrophils # 5.0 (1.3-7.7) k/uL Lymphocytes # 0.7 L (1.0-4.8) k/uL Monocytes # 0.5 (0-1.0) k/uL Eosinophils # 0.1 (0-0.7) k/uL Basophils # 0.0 (0-0.2) k/uL PT 14.2 H (10.0-12.5) sec INR 1.4 H (<1.2) APTT 22.1 (22.0-30.0) sec Sodium 140 (137-145) mmol/L Potassium 3.9 (3.5-5.1) mmol/L Chloride 104 (98-107) mmol/L Carbon Dioxide 24 (22-30) mmol/L Anion Gap 12 mmol/L BUN 20 (9-20) mg/dL Creatinine 1.28 H (0.66-1.25) mg/dL Est GFR (CKD-EPI)AfAm 62 (>60 ml/min/1.73 sqM) Est GFR (CKD-EPI)NonAf 53 (>60 ml/min/1.73 sqM) Glucose 168 H (74-99) mg/dL Calcium 8.7 (8.4-10.2) mg/dL Total Bilirubin 1.2 (0.2-1.3) mg/dL AST 67 H (17-59) U/L ALT 58 H (4-49) U/L Alkaline Phosphatase 98 (38-126) U/L Creatine Kinase 52 L (55-170) U/L Troponin I (0.000-0.034) ng/mL NT-Pro-B Natriuret Pep pg/mL Total Protein 6.5 (6.3-8.2) g/dL Albumin 3.8 (3.5-5.0) g/dL Urine Color Urine Appearance (Clear) Urine pH (5.0-8.0) Ur Specific [place] (1.001-1.035) Urine Protein (Negative) Urine Glucose (UA) (Negative) Urine Ketones (Negative) Urine Blood (Negative) Urine Nitrite (Negative) Urine Bilirubin (Negative) Urine Urobilinogen (<2.0) mg/dL Ur Leukocyte Esterase (Negative) Urine RBC (0-5) /hpf Urine WBC (0-5) /hpf Urine Mucus (None) /hpf 09/08/23 09/08/23 09/08/23 Range/Units 09:58 09:58 09:58 WBC (3.8-10.6) k/uL RBC (4.30-5.90) m/uL Hgb (13.0-17.5) gm/dL Hct (39.0-53.0) % MCV (80.0-100.0) fL MCH (25.0-35.0) pg MCHC (31.0-37.0) g/dL RDW (11.5-15.5) % Plt Count (150-450) k/uL MPV Neutrophils % % Lymphocytes % % Monocytes % % Eosinophils % % Basophils % % Neutrophils # (1.3-7.7) k/uL Lymphocytes # (1.0-4.8) k/uL Monocytes # (0-1.0) k/uL Eosinophils # (0-0.7) k/uL Basophils # (0-0.2) k/uL PT (10.0-12.5) sec INR (<1.2) APTT (22.0-30.0) sec Sodium (137-145) mmol/L Potassium (3.5-5.1) mmol/L Chloride (98-107) mmol/L Carbon Dioxide (22-30) mmol/L Anion Gap mmol/L BUN (9-20) mg/dL Creatinine (0.66-1.25) mg/dL Est GFR (CKD-EPI)AfAm (>60 ml/min/1.73 sqM) Est GFR (CKD-EPI)NonAf (>60 ml/min/1.73 sqM) Glucose (74-99) mg/dL Calcium (8.4-10.2) mg/dL Total Bilirubin (0.2-1.3) mg/dL AST (17-59) U/L ALT (4-49) U/L Alkaline Phosphatase (38-126) U/L Creatine Kinase (55-170) U/L Troponin I <0.012 (0.000-0.034) ng/mL NT-Pro-B Natriuret Pep 989 pg/mL Total Protein (6.3-8.2) g/dL Albumin (3.5-5.0) g/dL Urine Color Colorless Urine Appearance Clear (Clear) Urine pH 6.0 (5.0-8.0) Ur Specific [place] 1.050 H (1.001-1.035) Urine Protein Negative (Negative) Urine Glucose (UA) Negative (Negative) Urine Ketones Negative (Negative) Urine Blood Large H (Negative) Urine Nitrite Negative (Negative) Urine Bilirubin Negative (Negative) Urine Urobilinogen <2.0 (<2.0) mg/dL Ur Leukocyte Esterase Negative (Negative) Urine RBC >182 H (0-5) /hpf Urine WBC 1 (0-5) /hpf Urine Mucus Rare H (None) /hpf - EKG Data -: EKG Interpreted by Me EKG Comments: 12-lead Electrocardiogram Interpretation Note EKG was reviewed and interpreted by myself. 12-lead ECG performed at 0928 is interpreted by me as revealing atrial fibrillation at a rate of 84 beats per minute. [place] is normal. QRS duration is 94 ms, QTc is 425 ms.. There were no ST or T wave abnormalities to suggest myocardial ischemia or injury. R wave progression across the precordium was satisfactory. By my interpretation this EKG is non-diagnostic for acute ischemia. Critical Care Time Critical Care Time: Yes Total Critical Care Time: 58 Disposition Clinical Impression: Cerebrovascular accident (CVA) Narrative: possible PE Disposition: ADMITTED IP TO THIS HOSP Condition: Serious Time of Disposition: 11:05
[2023-09-08 10:19] LABS: ALT 58 U/L (4-49); AST 67 U/L (17-59); African American GFR (CKD) 62 (>60 ml/min/1.73 sqM); Albumin 3.8 g/dL (3.5-5.0); Alkaline Phosphatase 98 U/L (38-126); Anion Gap 12 mmol/L; Blood Urea Nitrogen 20 mg/dL (9-20); Calcium 8.7 mg/dL (8.4-10.2); Carbon Dioxide 24 mmol/L (22-30); Chloride 104 mmol/L (98-107); Creatine Kinase 52 U/L (55-170); Glucose 168 mg/dL (74-99); Non-African American GFR(CKD) 53 (>60 ml/min/1.73 sqM); Potassium 3.9 mmol/L (3.5-5.1); Sodium 140 mmol/L (137-145); Total Bilirubin 1.2 mg/dL (0.2-1.3); Total Protein 6.5 g/dL (6.3-8.2)
[2023-09-08 10:35] LABS: Basophils % (A) 0 %; Eosinophils # (A) 0.1 k/uL (0-0.7); Eosinophils % (A) 1 %; HCT 45.6 % (39.0-53.0); HGB 15.3 gm/dL (13.0-17.5); Lymphocytes # (A) 0.7 k/uL (1.0-4.8); Lymphocytes % (A) 11 %; MCH 33.5 pg (25.0-35.0); MCHC 33.6 g/dL (31.0-37.0); MCV 99.9 fL (80.0-100.0); Monocytes # (A) 0.5 k/uL (0-1.0); Monocytes % (A) 8 %; Neutrophils % (A) 77 %; Platelet Count 192 k/uL (150-450); RBC 4.56 m/uL (4.30-5.90); RDW 13.3 % (11.5-15.5); WBC 6.5 k/uL (3.8-10.6)
[2023-09-08 10:55] LABS: INR 1.4 (<1.2); Partial Thromboplastin Time 22.1 sec (22.0-30.0); Prothrombin Time 14.2 sec (10.0-12.5)
[2023-09-08] MEDS ORDERED: CLOPIDOGREL 75 MG TAB PO STA (10:56)
--- NOTE | 2023-09-08 11:12 | XR ---
EXAMINATION TYPE: XR chest 2V DATE OF EXAM: 09/08/2023 COMPARISON: 11/29/2017 TECHNIQUE: PA and lateral views submitted. HISTORY: Altered mental status FINDINGS: The lungs are clear and there is no pneumothorax, pleural effusion, or focal pneumonia. Heart size normal and no overt failure. Osseous structures demonstrate hypertrophic and degenerative changes of the spine. Limited inspiration with diffuse interstitial pattern. Biapical pleural thickening. AC ellis nt arthropathy. IMPRESSION: 1. Correlate for CHF favored over interstitial pneumonia.
--- NOTE | 2023-09-08 11:16 | CT ---
EXAMINATION TYPE: CT angio head neck DATE OF EXAM: 09/08/2023 COMPARISON: Noncontrast CT earlier today HISTORY: 77-year-old male with neurologic deficit, acute, CODE STROKE, right-sided weakness TECHNIQUE: Contiguous axial scanning of the head and neck performed without and with IV Contrast, pat ient injected with 100 ml mL of Isovue 370. Coronal/sagittal reconstructions performed. 3-D reconstru ctions generated on a dedicated independent workstation. CT DLP: 908 mGycm Automated exposure control for dose reduction was used. FINDINGS: Neck: Unable to exclude incidental right upper lobe segmental branch pulmonary embolus, axial series 19 jade ge 224. Conventional excessive branching anatomy. Possible moderate stenosis of the origin of the left vertebral artery. The remainder the vertebral ar teries are patent throughout the course. Retropharyngeal carotid bifurcations. Minimal atherosclerotic change at the left carotid bifurcation. Additional retropharyngeal course of the bilateral ICAs. The common and internal carotid arteries are patent without significant stenosis. NASCET criteria was utilized. Head: The right vertebral artery is slightly more dominant. Both vertebral and basilar arteries are patent throughout their course. Prominent contribution from the left posterior communicating artery with a h ypoplastic P1 segment left posterior cerebral artery. Posterior circulation otherwise appears patent. Mild atherosclerotic calcifications in the bilateral carotid siphons without significant stenosis. Th ere is hypoplastic A1 segment right anterior cerebral artery. GEOVANI otherwise appears patent. The M1 segment of the MCA is patent. No evident occlusion of the M2 branches. On axial MIP images, there is some paucity in enhancement of M3 branches of the left MCA laterally, r efer to axial image series 29 image 15. IMPRESSION: NECK: 1. UNABLE TO EXCLUDE INCIDENTAL RIGHT UPPER LOBE SEGMENTAL BRANCH PULMONARY EMBOLUS. 2. POSSIBLE MODERATE STENOSIS ORIGIN OF THE LEFT VERTEBRAL ARTERY. 3. THE COMMON AND INTERNAL CAROTID ARTERIES APPEAR WIDELY PATENT. HEAD: 4. NO LARGE VESSEL INTRACRANIAL ARTERIAL OCCLUSION, SIGNIFICANT STENOSIS, OR ANEURYSMAL CHANGES SEEN. 5. ON AXIAL MIP IMAGES, THERE IS SOME PAUCITY IN ENHANCEMENT OF M3 BRANCHES OF THE LEFT MCA, LATERALL Y, REFER TO AXIAL SERIES 29 IMAGE 15. THIS MAY BE DUE TO DISTAL VESSEL THROMBOSIS. Called to Dr. Sanchez in the ER at 11:10 AM.
[2023-09-08] MEDS ORDERED: NALOXONE 0.4 MG/ML 1 ML VIAL IV PRN (11:19)
--- NOTE | 2023-09-08 12:36 | US ---
EXAMINATION TYPE: US venous doppler duplex LE BI DATE OF EXAM: 09/08/2023 11:13 AM COMPARISON: NONE CLINICAL INDICATION: Male, 77 years old with history of eval for dvt; SIDE PERFORMED: Bilateral TECHNIQUE: The lower extremity deep venous system is examined utilizing real time linear array sonog cole with graded compression, doppler sonography and color-flow sonography. VESSELS IMAGED: Common Femoral Vein Deep Femoral Vein Greater Saphenous Vein * Femoral Vein Popliteal Vein Small Saphenous Vein * Proximal Calf Veins (* superficial vessels) Right Leg: Negative for DVT Left Leg: Negative for DVT IMPRESSION: Grayscale, color doppler, spectral doppler imaging performed of the deep veins of the lo wer extremities. There is normal flow, compressibility, vascular waveforms.
[2023-09-08 12:40] LABS: Appearance,Urine Clear (Clear); Bilirubin,Urine Negative (Negative); Blood,Urine Large (Negative); Color,Urine Colorless; Glucose,Urine (UA) Negative (Negative); Ketones,Urine Negative (Negative); Leukocyte Esterase,Urine Negative (Negative); Mucus,Urine Rare /hpf; Nitrite,Urine Negative (Negative); Protein,Urine Negative (Negative); RBC,Urine >182 /hpf (0-5); Urobilinogen,Urine <2.0 mg/dL (<2.0); WBC,Urine 1 /hpf (0-5)
[2023-09-08 15:01] LABS: Glucose,Whole Blood 125 mg/dL (70-110)
--- NOTE | 2023-09-08 15:16 | P.CNPUL ---
History of Present Illness Consult date: 09/08/23 Requesting physician: German Naranjo Reason for consult: other (Critical care management) Chief complaint: Dysphasia, unsteady gait History of present illness: This is a 77-year-old female patient with a known history of hyperlipidemia, hypertension, benign acetic hyperplasia, coronary disease with previous stent placement, atrial fibrillation with previous cardioversions. The patient has been off anticoagulation due to significant GI bleeds. He did have a watchman placed on 09/29/2017. Early this morning the patient seemed agitated around 1 AM and was pulling off his CPAP and getting up and going to the kitchen and was acting somewhat altered. When he woke up this morning he was unable to communicate and was aphasic. His believes his last well time was about 11 PM last night. On his way into the emergency room he had fallen and injured his right side. Unsteady. Remained aphasic. Code stroke was called. He was outside the window for TPA. Computed tomography scan of the brain reveals acute ischemic changes involving the left parietal, temporal and possibly a small port ion of the left occipital lobe with no midline shift or acute hemorrhage. CT angiogram of the head and neck revealed possible moderate stenosis at the origin of the left vertebral artery. Common and internal carotid arteries were widely patent. No significant stenosis in the brain. There was an incidental finding of a possible right upper lobe segmental branch pulmonary embolus. Dopplers of the lower extremities were negative for DVT. White count 6.5. Hemoglobin 15.3. Platelets 192. INR 1.4. Sodium 140. Potassium 3.9. Bicarb 24. BUN 20. Creatinine 1.28. Glucose 168. AST 67. ALT 58. Creatinine kinase 52. Troponins negative x 2. ProBNP 989. The patient is seen in consultation in the intensive care unit. He is awake and alert in no acute distress. He is maintaining good O2 saturations in the 90s on room air. He is aphasic. He has some trouble following simple commands. He has a right upper extremity drift. Otherwise no other neurological deficits noted. He is currently in atrial fibrillation with a controlled ventricular response. Review of Systems REVIEW OF SYSTEMS: CONSTITUTIONAL: Denies any recent significant weight loss or weight gain. EYES: Denies change in vision. EARS, NOSE, MOUTH, THROAT: Denies headaches, denies sore throat. CARDIOVASCULAR: Denies chest pain, palpitations or syncopal episodes. RESPIRATORY: Denies shortness of breath, cough, congestion or hemoptysis. GASTROINTESTINAL: Denies change in appetite, denies abdominal pain GENITOURINARY: Denies hematuria, denies infections. MUSKULOSKELETAL: Denies pain, denies swelling. INTEGUMENTARY: Denies rash, denies eczema. NEUROLOGICAL: Positive for aphasia, unsteady gait, right upper extremity drift. PSYCHIATRIC: Denies anxiety, denies depression. HEMATOLOGIC/LYMPHATIC: Denies anemia, denies enlarged lymph nodes. Past Medical History Past Medical History: Atrial Fibrillation, Chest Pain / Angina, Hyperlipidemia, Hypertension, Prostate Disorder Additional Past Medical History / Comment(s): diverticulosis. Gastric bleeds (x4) with blood transfusions/ iron. see Dr romo history and physical for cardiac history. hx gout History of Any Multi-Drug Resistant Organisms: None Reported Past Surgical History: Cholecystectomy, Heart Catheterization, Heart Catheterization With Stent, Joint Replacement, Orthopedic Surgery, Tonsillectomy Additional Past Surgical History / Comment(s): vasectomy, cataract right eye , repair of nasal surgery,cardioversion. Watchman procedure- Sep 29, 2017, total right knee , left hip replacement Past Anesthesia/Blood Transfusion Reactions: No Reported Reaction Additional Past Anesthesia/Blood Transfusion Reaction / Comment(s): blood transfusion with no problem Date of Last Stent Placement:: 06/01/18 Past Psychological History: No Psychological Hx Reported Smoking Status: Never smoker Past Alcohol Use History: Rare Past Drug Use History: None Reported - Past Family History Father Family Medical History: Coronary Artery Disease (CAD) Mother Family Medical History: No Reported History Brother(s) Family Medical History: Coronary Artery Disease (CAD) Additional Family Medical History / Comment(s): CABG x2 Medications and Allergies Home Medications Medication Instructions Recorded Confirmed Type Zolpidem [Ambien] 10 mg PO HS 02/26/17 09/08/23 History Metoprolol Tartrate [Lopressor] 25 mg PO BID 06/01/18 09/08/23 History Nitroglycerin Sl Tabs [Nitrostat] 0.4 mg SUBLINGUAL Q5M PRN #30 tab 06/02/18 09/08/23 Rx Lisinopril-Hctz 20-25 mg 1 tab PO DAILY 06/24/20 09/08/23 History [Zestoretic 20-25] Pantoprazole [Protonix] 40 mg PO HS 09/08/23 09/08/23 History Rosuvastatin [Crestor] 10 mg PO HS 09/08/23 09/08/23 History allopurinoL 100 mg PO DAILY 09/08/23 09/08/23 History Allergies Allergy/AdvReac Type Severity Reaction Status Date / Time aspirin AdvReac Excessive Verified 09/08/23 09:49 Bleeding Physical Exam Vitals: Vital Signs Temp Pulse Resp BP Pulse Ox 09/08/23 13:54 82 22 98 09/08/23 12:39 78 18 158/87 96 09/08/23 10:03 84 20 175/90 92 L 09/08/23 09:15 98 F 88 20 159/78 99 Intake and Output 09/07/23 09/08/23 09/08/23 22:59 06:59 14:59 Other: Weight 127.006 kg GENERAL EXAM: Alert, aphasic, 77-year-old male patient on room air, comfortable in no apparent distress. HEAD: Small abrasion over the right eye. Normocephalic. EYES: Normal reaction of pupils, equal size. NOSE: Clear with pink turbinates. THROAT: No erythema or exudates. NECK: No masses, no JVD. CHEST: No chest wall deformity. LUNGS: Equal air entry with no crackles, wheeze, rhonchi or dullness. CVS: S1 and S2 normal with no audible murmur, irregular rhythm. ABDOMEN: No hepatosplenomegaly, normal bowel sounds, no guarding or rigidity. SPINE: No scoliosis or deformity SKIN: No rashes CENTRAL NERVOUS SYSTEM: No focal deficits, tone is normal in all 4 extremities. EXTREMITIES: Right upper extremity drift. There is no peripheral edema. No clubbing, no cyanosis. Peripheral pulses are intact. Results - Laboratory Findings CBC and BMP: 09/08/23 09:58 09/08/23 09:58 PT/INR, D-dimer PT 14.2 sec (10.0-12.5) H 09/08/23 09:58 INR 1.4 (<1.2) H 09/08/23 09:58 Abnormal lab findings: Abnormal Labs 09/08/23 09/08/23 09/08/23 09:58 09:58 09:58 Lymphocytes # 0.7 L PT 14.2 H INR 1.4 H Creatinine 1.28 H Glucose 168 H AST 67 H ALT 58 H Creatine Kinase 52 L Ur Specific [place] Urine Blood Urine RBC Urine Mucus 09/08/23 09:58 Lymphocytes # PT INR Creatinine Glucose AST ALT Creatine Kinase Ur Specific [place] 1.050 H Urine Blood Large H Urine RBC >182 H Urine Mucus Rare H - Diagnostic Findings Chest x-ray: image reviewed Assessment and Plan Assessment: Acute cerebrovascular accident with aphasia secondary to acute ischemic changes involving the left parietal, temporal and possibly a small portion of left occipital lobe. No midline shift or acute hemorrhage. Outside the window for T PA. Not a candidate for intervention Aphasia secondary to above Unsteady gait with fall entering the hospital History of atrial fibrillation not on anticoagulation due to history of GI bleed, Watchman device placed in 2017 History of previous GI bleeds x 4 requiring blood transfusion Hypertension Hyperlipidemia Coronary disease with previous stent placement Benign prostatic hyperplasia Diverticulosis History of gout Plan: The patient was seen and evaluated CT brain, angiography CT, venous Doppler, chest x-ray, labs and medications reviewed VQ scan pending, echocardiogram pending Check a d-dimer Received Plavix Neurology consult Monitor closely here in the ICU Currently stable and on room air We will continue to follow and make further recommendations based on his clinical status I have personally seen and examined the patient, performed the documentation and the assessment and plan as written. Number of minutes spent on the visit: 20.
[2023-09-08] MEDS: SODIUM CHLORIDE 0.9% 1,000 ML IV SCH (16:03)
--- NOTE | 2023-09-08 16:08 | NM ---
EXAMINATION TYPE: NM pul vent and perfuse DATE OF EXAM: 09/08/2023 CLINICAL INDICATION: Male, 77 years old with history of eval for PE risk; HISTORY: 77-year-old male with abnormal CT, shortness of breath TECHNIQUE: Utilizing inhalation of 67.4 mCi Tc 99m DTPA aerosol and intravenous injection of 5.2 mCi of Tc 99m MAA, ventilation and perfusion images are acquired post injection in multiple projections. FINDINGS: Normal radiotracer distribution is noted in the lungs. There is no evidence of mismatched defects. IMPRESSION: No mismatched perfusion defect identified. Low probability for pulmonary embolus.
[2023-09-08] MEDS: METOPROLOL TARTRATE 25 MG TAB PO SCH ×2 (17:13→22:30)
--- NOTE | 2023-09-08 17:38 | CA ---
Transthoracic Echo Report Name: Jose Reis Age: 77 Gender: M : 1945 Exam Date: 09/08/2023 15:22 Exam Location: [place] [facility] Ht (in): 74 Wt (lb): 280 Ordering Physician: Fadi Sanchez MD Attending/Referring Phys: Crane Chaser Radha Fregoso RDCS Procedure CPT: Indications: EVAL FOR RIGHT HEART STRAIN Cardiac Hx: Technical Quality: Technically difficult study Contrast 1: Definity Total Dose (mL): 4 Contrast 2: Total Dose (mL): MEASUREMENTS (Male / Female) Normal Values 2D ECHO LV Diastolic Diameter PLAX 4.8 cm 4.2 - 5.9 / 3.9 - 5.3 cm LV Systolic Diameter PLAX 3.6 cm IVS Diastolic Thickness 1.2 cm 0.6 - 1.0 / 0.6 - 0.9 cm LVPW Diastolic Thickness 1.2 cm 0.6 - 1.0 / 0.6 - 0.9 cm LV Relative Wall Thickness 0.5 RV Internal Dim ED PLAX 4.2 cm LA Systolic Diameter LX 4.9 cm 3.0 - 4.0 / 2.7 - 3.8 cm LV Diastolic Volume MOD 4C 81.4 cm??? LV Systolic Volume MOD 4C 50.4 cm??? LV Ejection Fraction MOD 4C 38.0 % LV Cardiac Index MOD 4C 874.9 cm???/min???m??? LV Diastolic Length 4C 8.0 cm LV Systolic Length 4C 6.4 cm LV Diastolic Volume MOD 2C 92.7 cm??? LV Systolic Volume MOD 2C 32.3 cm??? LV Ejection Fraction MOD 2C 65.2 % LV Cardiac Index MOD 2C 1709.0 cm???/min???m??? LV Diastolic Length 2C 8.0 cm LV Systolic Length 2C 6.5 cm LA Volume 64.3 cm??? 18 - 58 / 22 - 52 cm??? LA Volume Index 24.6 cm???/m??? 16 - 28 cm???/m??? M-MODE Aortic Root Diameter MM 3.8 cm MV E Point Septal Separation 0.6 cm AV Cusp Separation MM 2.5 cm DOPPLER AV Peak Velocity 133.3 cm/s AV Peak Gradient 7.1 mmHg MV Area PHT 5.0 cm??? MV Deceleration Time 170.1 ms TR Peak Velocity 299.3 cm/s TR Peak Gradient 35.8 mmHg Right Ventricular Systolic Press 39.8 mmHg FINDINGS Left Ventricle Left ventricular ejection fraction is estimated at 55-60 %. Left ventricular cavity size normal. Normal left ventricular wall motion. Mildly increased left ventricular wall thickness. Right Ventricle Moderate right ventricular dilatation. Mild pulmonary hypertension. Right ventricular systolic pressure estimated at 39 mm hg. Right Atrium Normal right atrial size. Left Atrium Moderately increased left atrial diameter. Mildly increased left atrial volume. Mitral Valve Structurally normal mitral valve. Mitral annular calcification. Mild mitral regurgitation. Aortic Valve Trileaflet aortic valve. No aortic valve stenosis or regurgitation. Tricuspid Valve Structurally normal tricuspid valve. Mild tricuspid regurgitation. Pulmonic Valve Pulmonic valve not well visualized. No pulmonic regurgitation. Pericardium No pericardial effusion. Aorta Mild aortic dilatation at the level of the sinuses of valsalva 38 mm CONCLUSIONS Definity ECHO contrast used for improved visualization of the endocardial borders (inadequate visualization of two or more contiguous segments). 1. Normal left ventricular size and systolic function 2. Dilated right ventricle with preserved systolic function and mild pulmonary hypertension 3. Mild mitral and tricuspid regurgitation Previewed by: Dr. Bob Campoverde MD (Electronically Signed) Final Date: 08 September 2023 17:38
[2023-09-08] MEDS: ASPIRIN 300 MG SUPP RECTAL SCH (18:02)
[2023-09-08] MEDS ORDERED: PANTOPRAZOLE 40 MG TABLET PO SCH (21:00)
[2023-09-08] MEDS: PANTOPRAZOLE 40 MG/10 ML VIAL IVP SCH (22:30)
[2023-09-08] MEDS: ATORVASTATIN 20 MG TAB PO SCH (22:30)
--- NOTE | 2023-09-09 01:10 | P.CNNES ---
History of Present Illness Consult date: 09/08/23 Requesting physician: Fadi Sanchez Reason for Consult: CVA History of Present Illness: Patient is a 77-year-old right-handed male came to the hospital today at 9:08 AM for acute stroke symptoms. Patient not able to provide any history. Patient's was present, who provided all the history. She said that patient went to bed at 11 PM. He did not want to put CPAP, although he does it every day, which was slightly unusual. At 5 AM patient's woke up and look at him and he appeared fine. He was somewhat restless, moving one side to another. She asked him how he was, he said "okay", and said that he did not sleep well. He then went back to sleep. At around 6 or 7 AM he went to take the shower. Patient's asked him if he wanted breakfast, he did not answer. When she came over, and try to talk to him, he was talking gibberish, not making any sense. She brought him to the hospital at around 9 AM. Therefore his last known well was at around 5 AM. Patient's denies any facial droop or any obvious weakness. He denied any headache. Patient's also mentions that while he was coming in the parking lot, he fell and since then he has been complaining of some right-sided chest pain. No fractures noted on the x-ray. Vital signs on arrival blood pressure 159/78, pulse rate 88, temperature 98.0. Blood pressure shows normal CBC, INR 1.4, PTT is normal, electrolytes are normal, BUN 20, creatinine 1.28. AST is 67, ALT 58, troponin negative, UA negative. It showed some hematuria. CT head revealed findings highly suggestive of acute ischemic changes involving the left parietal, temporal and possibly a small portion of the left occipital lobe with no midline shift or acute hemorrhage. Correlate for an acute stroke. I personally reviewed CT head, agree with the findings. Chest x-ray revealed correlate for CHF favored over interstitial pneumonia. EKG shows atrial fibrillation. Venous Doppler negative for DVT bilaterally. In the ER, patient was evaluated by the ED staff. Patient's NIH stroke scale was 5. The ED staff discuss case with Dr. Morgan, and patient was considered not a candidate for TPA. Also not a candidate for any neurological intervention. Recommended started Plavix daily. Patient has history of hypertension which is controlled, denies any diabetes, any cholesterol issues. Never smoked. Denies any previous history of strokes or TIA. Patient has history of atrial fibrillation diagnosed 6 or 7 years ago. He underwent watchman device 5 years ago in [facility]. He was placed on aspirin, but he developed severe GI bleed 6-7 different times. The last time he developed GI bleed was during Covid. Patient has history of diverticulosis, which bleeds. One time his hemoglobin went down from 13-4. Therefore he is not on any antiplatelets. The last time he was placed on aspirin 81 mg, he developed significant nosebleed. Patient has history of essential tremor. Patient takes allopurinol, Protonix, Crestor 10 mg, Zestoretic, metoprolol and Ambien. Patient does not take any antiplatelet medications or anticoagulants. Patient's father has history of ME. His mother had strokes. Review of Systems As per patient's description and some of the patient. Constitutional: Reports weight gain, Denies chills, Denies fever Eyes: denies blurred vision, denies diplopia, denies pain Ears: deny: decreased hearing, ear discharge Ears, nose, mouth and throat: Denies headache, Denies sore throat Cardiovascular: Reports chest pain, Reports shortness of breath Respiratory: Reports excessive sputum, Denies cough Gastrointestinal: Denies abdominal pain, Denies diarrhea, Denies nausea, Denies vomiting Genitourinary: Reports urinary frequency (Urgency), Denies incontinence Musculoskeletal: Denies low back pain, Denies myalgias, Denies neck pain Integumentary: Denies pruritus, Denies rash Neurological: Reports as per HPI Psychiatric: Denies anxiety, Denies depression Endocrine: Reports fatigue, Reports weight change Hematologic/Lymphatic: Reports easy bleeding, Reports easy bruising Past Medical History Past Medical History: Atrial Fibrillation, Chest Pain / Angina, Hyperlipidemia, Hypertension, Prostate Disorder Additional Past Medical History / Comment(s): diverticulosis. Gastric bleeds (x4) with blood transfusions/ iron. see Dr romo history and physical for cardiac history. hx gout History of Any Multi-Drug Resistant Organisms: None Reported Past Surgical History: Cholecystectomy, Heart Catheterization, Heart Catheterization With Stent, Joint Replacement, Orthopedic Surgery, Tonsillectomy Additional Past Surgical History / Comment(s): vasectomy, cataract right eye , repair of nasal surgery,cardioversion. Watchman procedure- Sep 29, 2017, total right knee , left hip replacement Past Anesthesia/Blood Transfusion Reactions: No Reported Reaction Additional Past Anesthesia/Blood Transfusion Reaction / Comment(s): blood transfusion with no problem Date of Last Stent Placement:: 06/01/18 Past Psychological History: No Psychological Hx Reported Smoking Status: Never smoker Past Alcohol Use History: Rare Past Drug Use History: None Reported - Past Family History Father Family Medical History: Coronary Artery Disease (CAD) Mother Family Medical History: No Reported History Brother(s) Family Medical History: Coronary Artery Disease (CAD) Additional Family Medical History / Comment(s): CABG x2 Medications and Allergies Home Medications Medication Instructions Recorded Confirmed Type Zolpidem [Ambien] 10 mg PO HS 02/26/17 09/08/23 History Metoprolol Tartrate [Lopressor] 25 mg PO BID 06/01/18 09/08/23 History Nitroglycerin Sl Tabs [Nitrostat] 0.4 mg SUBLINGUAL Q5M PRN #30 tab 06/02/18 09/08/23 Rx Lisinopril-Hctz 20-25 mg 1 tab PO DAILY 06/24/20 09/08/23 History [Zestoretic 20-25] Pantoprazole [Protonix] 40 mg PO HS 09/08/23 09/08/23 History Rosuvastatin [Crestor] 10 mg PO HS 09/08/23 09/08/23 History allopurinoL 100 mg PO DAILY 09/08/23 09/08/23 History Allergies Allergy/AdvReac Type Severity Reaction Status Date / Time aspirin AdvReac Excessive Verified 09/08/23 09:49 Bleeding Physical Examination - Vital Signs Vital Signs: Vital Signs Temp Pulse Resp BP Pulse Ox 09/08/23 10:03 84 20 175/90 92 L 09/08/23 09:15 98 F 88 20 159/78 99 Intake and Output 09/07/23 09/08/23 09/08/23 22:59 06:59 14:59 Other: Weight 127.006 kg Patient is an elderly male, in no acute distress. Patient is alert awake. Patient appears significantly aphasic, not able to tell the current month or his age. He could not tell name of his or his own name. Apparently per nurse, earlier about half an hour ago, he was clearly able to tell name of his Laurie and his own name. Appears slightly worse at this time. Speech is clear with no obvious dysarthria. However he has significant expressive aphasia. He could not name any object. He has paraphasic errors, saying "drawal" for pen. He could not name simple objects like ear, knuckles. He could not repeat. He has fluent aphasia, significant word finding problem. His comprehension is intact, as he was able to point to the window, the door and the ceiling. Attention, concentration is impaired because of CVA and fund of knowledge is difficult to assess because of aphasia. On cranial nerve examination, pupils are equal, round and reacting to light, visual walton reveal complete right homonymous hemianopia. Extraocular muscles are intact with no nystagmus. Face is symmetric, tongue protrudes to the midline. Palatal elevation and sensation normal, hearing is slightly decreased and shoulder shrug normal, facial sensation normal. On muscle strength testing, there is mild pronator drift about 10 to 20. Did not hit the bed. The strength otherwise is normal in arms and legs distally and proximally. Deep tendon reflexes are symmetric 1+ and plantars downgoing. Sensory to touch is equal with no neglect on double simultaneous stimulation. Cerebellar function showed no ataxia for [id number] testing. No dysdiadochokinesia. No ataxia for [id number] testing on either side. Tone and bulk of muscles normal. Gait deferred.. On general examination, there is no carotid bruit or murmur, S1-S2 audible. Chest is clear on consultation. Abdomen is soft nontender. No organomegaly, bowel sounds present. Peripheral pulses are present. No peripheral edema. Results - Laboratory Findings CBC and BMP: 09/08/23 09:58 09/08/23 09:58 Abnormal Lab Findings: Abnormal Labs 09/08/23 09/08/23 09/08/23 09:58 09:58 09:58 Lymphocytes # 0.7 L PT 14.2 H INR 1.4 H Creatinine 1.28 H Glucose 168 H AST 67 H ALT 58 H Creatine Kinase 52 L Assessment and Plan Assessment: * Acute ischemic stroke, with severe expressive aphasia. Patient's NIH stroke scale was 5 in the ER, but now has got worse and is 9. * Atrial fibrillation, status post watchman device 5 years ago. * Hypertension * Hyperlipidemia * Coronary artery disease * History of multiple GI bleeds due to diverticulosis Plan: * Patient had an acute ischemic stroke. Patient was not a candidate for TPA, because he came outside the window for TPA. Also that his computed tomography scan was positive for moderate size CVA, indicative of high risk of hemorrhagic conversion. * MRI of the brain without contrast, evaluate for the extent of CVA, rule out hemorrhagic conversion. If patient cannot have MRI for any reason, would ryan mmend repeating CT head in the morning to evaluate for cerebral edema. * 2-D echo revealed moderately increased left atrial diameter. Left-ventricular ejection fraction is 55-60%. Normal left ventricular cavity. Dilated right ventricle. Mild MR. * CTA neck showed: Unable to exclude incidental right upper lobe segmental branch pulmonary embolism. Possible moderate stenosis origin of the left ade tebral artery. The common and internal carotid arteries appear widely patent. * CTA of the head showed no large vessel intracranial arterial occlusion, significant stenosis or aneurysm. On axial images, there is some paucity in the enhancement of the M3 branches of the left MCA laterally. This may be due to distal vessel thrombosis. * Fasting a.m. lipid panel * Hemoglobin A1c * Permissive hypertension for next 24-48 hours * Patient was given Plavix in the ER. Patient's stroke symptoms seems to have gotten worse. We will start aspirin 300 mg rectally every day. Patient has history of multiple GI bleed, but at this time the benefits outweigh the risk. We will start Protonix 40 mg IV twice a day. Discussed with patient's , and agrees with this approach. * Neuro checks every 2 hour. * Telemetry monitoring rule out any arrhythmia * PT, OT, speech therapy * DVT prophylaxis: Lovenox 40 mg subcu daily * patient's mentions that patient is clearly DO NOT RESUSCITATE, DO NOT INTUBATE. * Dr. Silvestre will cover neurology service over the weekend. Thank you for the consult. Time with Patient: Greater than 30
[2023-09-09] MEDS: ZOLPIDEM 5 MG TAB PO SCH ×2 (01:17→21:25)
[2023-09-09 06:32] LABS: HCT 43.5 % (39.0-53.0); HGB 14.4 gm/dL (13.0-17.5); MCHC 33.2 g/dL (31.0-37.0); MCV 99.3 fL (80.0-100.0); Mean Platelet Volume 8.2; Platelet Count 176 k/uL (150-450); RBC 4.38 m/uL (4.30-5.90); RDW 13.6 % (11.5-15.5); WBC 8.6 k/uL (3.8-10.6)
[2023-09-09 06:59] LABS: African American GFR (CKD) 83 (>60 ml/min/1.73 sqM); Anion Gap 12 mmol/L; Blood Urea Nitrogen 18 mg/dL (9-20); Calcium 8.3 mg/dL (8.4-10.2); Carbon Dioxide 22 mmol/L (22-30); Chloride 103 mmol/L (98-107); Glucose 113 mg/dL (74-99); Non-African American GFR(CKD) 72 (>60 ml/min/1.73 sqM); Potassium 3.8 mmol/L (3.5-5.1); Sodium 137 mmol/L (137-145)
--- NOTE | 2023-09-09 07:41 | P.HPIM ---
History of Present Illness H&P Date: 09/08/23 Chief Complaint: acute CVA HISTORY OF PRESENT ILLNESS: This is a 77-year-old male with a previous medical history significant for hypertension and hypertensive cardio vascular disease, hyperlipidemia, coronary artery disease status post PCI of the LAD 06/01/2018, gout, insomnia, paroxysmal atrial fibrillation status post watchman device placement after he had suffered from GI bleed, this was placed on 09/08/2017, GERD, patient was in his usual state of health until about yesterday at around 10:00 last night when he become more agitated and the patient did not want to wear his CPAP, initially he commandant went to bed, and woke up in the morning and he could not see any word according to his he was having garbled speech, so his brought him in the car and drove him to the emergency department at [facility], on his way into the ER he stumbled on his way and he fell and hit the side of his face, he was helped into the ER, had a computed tomography scan of the brain that did show evidence of left parietal, temporal and partial occipital lobe ischemic stroke, patient was placed on clopidogrel 75 mg orally 1, then he underwent CT angiography of the carotid artery and of the brain was not able to exclude a possible tumor embolus in the right upper lobe subsegmental branches, also there was a stenosis moderate stenosis of the left vertebral artery the common and bilateral internal carotid arteries were patent, there was also a pa ucity of the enhancement at the M3 branches of the left middle cerebral artery suggestive of distal vessel thrombosis, after discussing the situation with the ER physician as well as the neurology was admitted through the patient to be treated medically and he is not abnormal for intervention at this point in time, patient will be admitted to intensive care unit, he will be going for a VQ scan for evaluation of possible pulmonary embolism, continue aggressive medical therapy with neuro check around the clock. REVIEW OF SYSTEMS: Constitutional: No documented fever, no chills, no night sweats. No weight change. No weakness, fatigue or lethargy. No daytime sleepiness. HEENT: No headache. No blurred vision or double vision, no loss of vision. No loss of Hearing, no ringing in the ears, no dizziness. No nasal drainage or congestion. No epistaxis. No sore throat. Lungs: No shortness of breath, no cough, no sputum production. No wheezing. Reports dyspnea with activity. Cardiovascular: No chest pain, no lower extremity edema. No palpitations. No paroxysmal nocturnal dyspnea. No orthopnea. No lightheadedness or dizziness. No syncopal episodes. Abdominal: Reports no abdominal pain. No nausea, vomiting. No diarrhea. No constipation. No bloody or tarry stools reports loss of appetite. Genitourinary: No dysuria, increased frequency, urgency. No urinary retention. Musculoskeletal: No myalgias. No muscle weakness, no gait dysfunction, no frequent falls. No back pain. No neck pain. Integumentary: No wounds, no lesions. No rash or pruritus. No unusual bruising. No change in hair or nails. Neurologic: expressive aphasia. No facial droop. No change in mentation. No head injury. No headache. No paralysis. No paresthesia, mild pronator drift Psychiatric: No depression. No anxiety. No mood swings. Endocrine: No abnormal blood sugars. No weight change. PAST MEDICAL HISTORY: Hypertension and hypertensive cardiovascular disease. Hyperlipidemia. Coronary artery disease status post PCI of the LAD 06/01/2017 Paroxysmal atrial fibrillation status post watchman device placement 10/05/2017 GERD with esophagitis. Gout. Insomnia. Vitamin D deficiency. Enlarged prostate. Obstructive sleep apnea. PAST SURGICAL HISTORY: Right total knee arthroplasty 01/01/2014 Cataract right eye 02/2018 Cholecystectomy 10/26/2010. Tonsillectomy 1964 Colonoscopy 2017 Vasectomy 1970 Watchman device 10/05/2017 Aquablation of the prostate 2020 Left heart catheterization with PCI of the LAD 06/01/2018 Left hip IM 10/28/2017 Cystoscopy 03/13/2018. Right hydrocele repair 11/26/2013 Left knee meniscal tear repair 10/19/2013. Right hydrocele repair 08/17/2006 SOCIAL HISTORY: patient is a lifelong nonsmoker, he drinks occasionally, he denies any drug use. Patient lives with his . FAMILY HISTORY: father at age of 63 from COPD and he had the flu, mother at age of 90 from old age and she was blind, hard of hearing and stroke, patient had one brother who at the age of 72 and he had CABG 5 at age of 45 he was heavy smoker and he had COPD, patient has one son alive and well and one daughter with asthma. PHYSICAL EXAMINATION: General: 77-year-old male sitting up in bed. To be a bit confused, with trouble finding the words. HEENT: Head is atraumatic, normocephalic, pupils were equal round reactive to light and recommendation, extraocular muscle movement were intact, sclera nonicteric, conjunctivae were pale, mucous membranes of the mouth are somewhat dry. Neck: Supple, no JVP, normal carotid upstroke bilaterally, no lymphadenopathy. Chest: Decreased breath sounds at the bases, few rhonchi, no expiratory wheezes, no chest wall tenderness, no intercostal retractions. Heart: First heart sound is normal, second heart sound is normal there is BRIAN 2/6 located at the left sternal border Abdomen: Soft, nontender, nondistended, positive bowel sounds. Extremities: There is no edema no calf tenderness DP +2 bilaterally. Neurologic examination: Patient is awake alert and oriented X1 , she does appear to have a expressive aphagia without significant weakness in both lower extremities, for pronator drift, [id number] and [id number] sign were negative due to and reflux is were normal, Babinski was extensor on the left. ASSESSMENT AND PLAN: 1. Acute ischemic cerebrovascular accident in the distribution of the left middle cerebral artery including a left parietal temporal and partial left occipital lobe with a CT angiography showing paucity of the enhancement of the M3 branches of the middle cerebral arteries suggestive of acute thrombosis of the distal branches, patient was seen in consultation by neurology, it was recommended for the patient be started on clopidogrel 75 mg once every day, and she the patient medically, we'll continue to the neuro check every 2 hours [id number] for the next 24 hours, echocardiogram will be done, CT angiography of the carotid artery did not show evidence of acute processes dissection or significant stenosis of both carotid arteries. Continue moderate dose of statin, keep LDL 55-70. Speech therapy evaluation, physical therapy and occupational therapy evaluation, fall precautions, start the patient on IV fluid resuscitation the form of normal saline continue permissive hypertension for the next 48 hours. 2. Possible right upper lobe subsegmental branch pulmonary embolism. Patient at this point in time he will stay off heparin drip, we'll send the patient for a VQ scan for possible pulmonary embolism of the thecal scan is low probability hold off anticoagulation because of the risk of conversion to hemorrhagic stroke. 3. Hypertension and hypertensive cardiovascular disease hold off lisinopril for now, continue patient on metoprolol 25 mg orally 3 times every day, monitor the patient blood pressure very closely. 4. Mixed hyperlipidemia. Continue patient on atorvastatin 20 mg orally once every day, monitor the patient rhythm, keep LDL 55-70. 5. Idiopathic gout. Continue patient on allopurinol 100 mg orally once every day. 6. Vitamin D deficiency. Continue vitamin D3 2000 units once every day. 7. GERD with esophagitis. Continue PPI. 8. Insomnia. Continue Ambien and trazodone. 9. Obstructive sleep apnea. Continue patient on home CPAP. 10. Enlarged prostate. PSA is up-to-date. 11. Coronary artery disease status post PCI of the LAD continue patient on Plavix 75 mg once every day, continue metoprolol 25 mg orally 3 times every day, continue atorvastatin 20 mg once every day, consult cardiology patient has been under the care of Dr. Gongora. 12. Paroxysmal atrial fibrillation status post watchman device placement 10/05/2017. Continue metoprolol monitor the patient very closely. 13 diverticulosis. Patient was scheduled to go for colonoscopy next week this would be placed on hold. 14. Prediabetes. Continue low-carb diet. Monitor the patient hemoglobin was he. 15. DVT prophylaxis. Heparin 5000 units subcutaneously every 12 hours. 16 GI prophylaxis. Continue patient on Protonix 40 mg once every day. 17. Admit to inpatient. Estimated length of stay 2 midnights. 18. Patient is no code.. Past Medical History Past Medical History: Atrial Fibrillation, Chest Pain / Angina, Hyperlipidemia, Hypertension, Prostate Disorder Additional Past Medical History / Comment(s): diverticulosis. Gastric bleeds (x4) with blood transfusions/ iron. see Dr romo history and physical for cardiac history. hx gout History of Any Multi-Drug Resistant Organisms: None Reported Past Surgical History: Cholecystectomy, Heart Catheterization, Heart Catheterization With Stent, Joint Replacement, Orthopedic Surgery, Tonsillectomy Additional Past Surgical History / Comment(s): vasectomy, cataract right eye , repair of nasal surgery,cardioversion. Watchman procedure- Sep 29, 2017, total right knee , left hip replacement Past Anesthesia/Blood Transfusion Reactions: No Reported Reaction Additional Past Anesthesia/Blood Transfusion Reaction / Comment(s): blood transfusion with no problem Date of Last Stent Placement:: 06/01/18 Past Psychological History: No Psychological Hx Reported Smoking Status: Never smoker Past Alcohol Use History: Rare Past Drug Use History: None Reported - Past Family History Father Family Medical History: Coronary Artery Disease (CAD) Mother Family Medical History: No Reported History Brother(s) Family Medical History: Coronary Artery Disease (CAD) Additional Family Medical History / Comment(s): CABG x2 Medications and Allergies Home Medications Medication Instructions Recorded Confirmed Type Zolpidem [Ambien] 10 mg PO HS 02/26/17 09/08/23 History Metoprolol Tartrate [Lopressor] 25 mg PO BID 06/01/18 09/08/23 History Nitroglycerin Sl Tabs [Nitrostat] 0.4 mg SUBLINGUAL Q5M PRN #30 tab 06/02/18 09/08/23 Rx Lisinopril-Hctz 20-25 mg 1 tab PO DAILY 06/24/20 09/08/23 History [Zestoretic 20-25] Pantoprazole [Protonix] 40 mg PO HS 09/08/23 09/08/23 History Rosuvastatin [Crestor] 10 mg PO HS 09/08/23 09/08/23 History allopurinoL 100 mg PO DAILY 09/08/23 09/08/23 History Allergies Allergy/AdvReac Type Severity Reaction Status Date / Time aspirin AdvReac Excessive Verified 09/08/23 09:49 Bleeding Physical Exam Vitals: Vital Signs Temp Pulse Resp BP Pulse Ox 09/09/23 06:00 20 145/90 96 09/09/23 05:00 60 9 L 134/106 95 09/09/23 04:00 66 12 125/73 93 L 09/09/23 03:00 12 128/67 95 09/09/23 02:00 57 L 10 L 143/82 94 L 09/09/23 01:00 58 L 26 H 154/94 92 L 09/09/23 00:00 66 H 117/89 93 L 09/08/23 23:36 61 30 H 117/89 93 L 09/08/23 23:00 31 H 126/72 96 09/08/23 22:00 66 26 H 93 L 09/08/23 21:30 73 33 H 95 09/08/23 21:00 23 131/78 96 09/08/23 20:30 97.6 F 66 25 H 131/78 97 09/08/23 20:00 74 29 H 95 09/08/23 19:30 70 40 H 94 L 09/08/23 19:00 70 24 142/76 95 09/08/23 18:30 66 20 142/76 09/08/23 18:00 65 28 H 128/76 98 09/08/23 17:30 64 25 H 113/79 96 09/08/23 17:00 73 26 H 127/65 96 09/08/23 16:30 74 36 H 120/87 96 09/08/23 16:00 98.4 F 77 22 131/63 93 L 09/08/23 15:30 98.2 F 72 15 144/100 95 09/08/23 15:02 72 30 H 95 09/08/23 14:00 165/101 09/08/23 13:54 82 22 98 09/08/23 12:39 78 18 158/87 96 09/08/23 10:03 84 20 175/90 92 L 09/08/23 09:15 98 F 88 20 159/78 99 Intake and Output 09/08/23 09/09/23 09/09/23 22:59 06:59 14:59 Intake Total 1040 700 Output Total 505 550 Balance 535 150 Intake: IV 800 700 Sodium Chloride 0.9% 1, 800 700 000 ml @ 100 mls/hr IV . Q10H [facility] Rx#:[id number] Oral 240 Output: Urine 505 550 Other: Voiding Method Urinal Urinal # Voids 1 Weight 129 kg 130.3 kg Results CBC & Chem 7: 09/09/23 05:51 09/09/23 05:51 Labs: Abnormal Lab Results - Last 24 Hours (Table) 09/08/23 09/08/23 09/08/23 Range/Units 09:58 09:58 09:58 Lymphocytes # 0.7 L (1.0-4.8) k/uL PT 14.2 H (10.0-12.5) sec INR 1.4 H (<1.2) D-Dimer (<0.60) mg/L FEU Creatinine 1.28 H (0.66-1.25) mg/dL Glucose 168 H (74-99) mg/dL POC Glucose (mg/dL) (70-110) mg/dL Calcium (8.4-10.2) mg/dL AST 67 H (17-59) U/L ALT 58 H (4-49) U/L Creatine Kinase 52 L (55-170) U/L Ur Specific [place] (1.001-1.035) Urine Blood (Negative) Urine RBC (0-5) /hpf Urine Mucus (None) /hpf 09/08/23 09/08/23 09/08/23 Range/Units 09:58 14:59 15:03 Lymphocytes # (1.0-4.8) k/uL PT (10.0-12.5) sec INR (<1.2) D-Dimer 4.59 H (<0.60) mg/L FEU Creatinine (0.66-1.25) mg/dL Glucose (74-99) mg/dL POC Glucose (mg/dL) 125 H (70-110) mg/dL Calcium (8.4-10.2) mg/dL AST (17-59) U/L ALT (4-49) U/L Creatine Kinase (55-170) U/L Ur Specific [place] 1.050 H (1.001-1.035) Urine Blood Large H (Negative) Urine RBC >182 H (0-5) /hpf Urine Mucus Rare H (None) /hpf 09/09/23 Range/Units 05:51 Lymphocytes # (1.0-4.8) k/uL PT (10.0-12.5) sec INR (<1.2) D-Dimer (<0.60) mg/L FEU Creatinine (0.66-1.25) mg/dL Glucose 113 H (74-99) mg/dL POC Glucose (mg/dL) (70-110) mg/dL Calcium 8.3 L (8.4-10.2) mg/dL AST (17-59) U/L ALT (4-49) U/L Creatine Kinase (55-170) U/L Ur Specific [place] (1.001-1.035) Urine Blood (Negative) Urine RBC (0-5) /hpf Urine Mucus (None) /hpf Thrombosis Risk Factor Assmnt - Choose All That Apply Any of the Below Risk Factors Present?: Yes Each Factor Represents 1 point: Medical pt on bed rest, Obesity (BMI >25) Other Risk Factors: Yes Each Risk Factor Represents 2 Points: Patient confined to bed Each Risk Factor Represents 3 Points: Age 75 years or older Other congenital or acquired thrombophilia - If yes, enter type in comment: No Thrombosis Risk Factor Assessment Total Risk Factor Score: 7 Thrombosis Risk Factor Assessment Level: High Risk
--- NOTE | 2023-09-09 08:15 | P.PN ---
Subjective Patient is a pleasant 77-year-old male came in with a cerebrovascular accident involving right side of the body with improvement in his weakness in the right side. Patient has 4/5 strength in the right upper and lower extremities patient does have Wernicke's aphasia which is consistent with his stroke in the left temporoparietal area as per the computed tomography scan patient is awaiting MRI echocardiogram did not show any significant abnormality. CT angiogram of the head and neck showed moderate stenosis but no significant stenosis that will need intervention at this time. Patient has history of atrial fibrillation but not on anticoagulation because of his multiple GI bleed and did have Oshman procedure about 4 years ago. There was a concern about pulmonary embolism as well as per the reading of her CT angios of the chest this cannot be ruled out., Although possibility of this is low because of which patient was started on anticoagulation instead patient will undergo VQ scan pulmonary, neurology are following the patient today. Patient is presently receiving that less than 300 mg. Patient is also on DVT prophylaxis at this time. Constitutional: Denied any fatigue denied any fever. Cardio vascular: denied any chest pain, palpitations Gastrointestinal denied any nausea vomiting Pulmonary: Denied any shortness of breath cough Neurologic neuro symptoms as mentioned above All inpatient medications were reviewed and appropriate changes in these medications as dictated in the interval history and assessment and plan. PHYSICAL EXAMINATION: GENERAL: The patient is alert and oriented x3, not in any acute distress. Well developed, well nourished. HEENT: Pupils are round and equally reacting to light. EOMI. No scleral icterus. No conjunctival pallor. Normocephalic, atraumatic. No pharyngeal erythema. No thyromegaly. CARDIOVASCULAR: S1 and S2 present. No murmurs, rubs, or gallops. PULMONARY: Chest is clear to auscultation, no wheezing or crackles. ABDOMEN: Soft, nontender, nondistended, normoactive bowel sounds. No palpable organomegaly. MUSCULOSKELETAL: No joint swelling or deformity. EXTREMITIES: No cyanosis, clubbing, or pedal edema. NEUROLOGICAL: Focal deficits on the right side as mentioned in the interval history and Wernicke's aphasia SKIN: No rashes. -Assessment and plan -Acute cerebral vascular accident involving the left that parietotemporal area leading to right-sided weakness and Wernicke's aphasia, continue with the rectal aspirin was monitored for any GI bleed. Physical therapy occupational therapy evaluation awaiting MRI. Rest of the workup as mentioned above. -Proximal atrial fibrillation: Patient heart rate is well controlled at this time. Patient is watch procedure patient is not on anticoagulation because of multiple GI bleeds in the past -Concerns about pulmonary embolism: Low possibility VQ scan is being obtained -Benign prostatic hyperplasia -Coronary artery disease with stent placement -Hypertension -Hyperlipidemia -DVT prophylaxis: Subcutaneous Lovenox Objective - Vital Signs Vital signs: Vital Signs Temp 97.6 F 09/08/23 20:30 Pulse 60 09/09/23 07:00 Resp 11 L 09/09/23 07:00 BP 141/87 09/09/23 07:00 Pulse Ox 98 09/09/23 07:00 FiO2 Intake & Output 09/08/23 09/09/23 09/09/23 18:59 06:59 18:59 Intake Total 520 1220 100 Output Total 505 750 Balance 15 470 100 Weight 129 kg 130.3 kg Intake: IV 400 1100 100 Sodium Chloride 0.9% 1, 400 1100 100 000 ml @ 100 mls/hr IV . Q10H [facility] Rx#:[id number] Oral 120 120 Output: Urine 505 750 Other: Voiding Method Urinal Urinal # Voids 1 - Labs CBC & Chem 7: 09/09/23 05:51 09/09/23 05:51 Labs: Abnormal Lab Results - Last 24 Hours (Table) 09/08/23 09/08/23 09/08/23 Range/Units 09:58 09:58 09:58 Lymphocytes # 0.7 L (1.0-4.8) k/uL PT 14.2 H (10.0-12.5) sec INR 1.4 H (<1.2) D-Dimer (<0.60) mg/L FEU Creatinine 1.28 H (0.66-1.25) mg/dL Glucose 168 H (74-99) mg/dL POC Glucose (mg/dL) (70-110) mg/dL Calcium (8.4-10.2) mg/dL AST 67 H (17-59) U/L ALT 58 H (4-49) U/L Creatine Kinase 52 L (55-170) U/L Ur Specific [place] (1.001-1.035) Urine Blood (Negative) Urine RBC (0-5) /hpf Urine Mucus (None) /hpf 09/08/23 09/08/23 09/08/23 Range/Units 09:58 14:59 15:03 Lymphocytes # (1.0-4.8) k/uL PT (10.0-12.5) sec INR (<1.2) D-Dimer 4.59 H (<0.60) mg/L FEU Creatinine (0.66-1.25) mg/dL Glucose (74-99) mg/dL POC Glucose (mg/dL) 125 H (70-110) mg/dL Calcium (8.4-10.2) mg/dL AST (17-59) U/L ALT (4-49) U/L Creatine Kinase (55-170) U/L Ur Specific [place] 1.050 H (1.001-1.035) Urine Blood Large H (Negative) Urine RBC >182 H (0-5) /hpf Urine Mucus Rare H (None) /hpf 09/09/23 Range/Units 05:51 Lymphocytes # (1.0-4.8) k/uL PT (10.0-12.5) sec INR (<1.2) D-Dimer (<0.60) mg/L FEU Creatinine (0.66-1.25) mg/dL Glucose 113 H (74-99) mg/dL POC Glucose (mg/dL) (70-110) mg/dL Calcium 8.3 L (8.4-10.2) mg/dL AST (17-59) U/L ALT (4-49) U/L Creatine Kinase (55-170) U/L Ur Specific [place] (1.001-1.035) Urine Blood (Negative) Urine RBC (0-5) /hpf Urine Mucus (None) /hpf
[2023-09-09] MEDS: allopurinoL 100 MG TAB PO SCH (08:37)
[2023-09-09] MEDS: METOPROLOL TARTRATE 25 MG TAB PO SCH ×2 (08:37→21:25)
[2023-09-09] MEDS: PANTOPRAZOLE 40 MG/10 ML VIAL IVP SCH ×2 (08:37→21:25)
[2023-09-09] MEDS: ASPIRIN 300 MG SUPP RECTAL SCH (08:37)
[2023-09-09] MEDS: ENOXAPARIN 40 MG/0.4 ML SYRINGE SQ SCH (08:37)
[2023-09-09] MEDS: SODIUM CHLORIDE 0.9% 1,000 ML IV SCH ×3 (08:38→21:25)
--- NOTE | 2023-09-09 10:07 | P.CRDCN ---
History of Present Illness Consult date: 09/09/23 History of present illness: History of Present Illness: The patient is a 77-year-old male with a known history of CAD status post stenting of the LAD, history of chronic persistent atrial fibrillation with GI bleeding status post watchman device, history of hypertension, hyperlipidemia who presented with left sided weakness and was diagnosed with CVA. He is followed on a regular basis by Dr. Gongora. He has underwent an MPI in November 2019 that showed no evidence of stress-induced ischemia. He is awake, alert, following commands but has expressive aphasia. There was a question of pulmonary embolism but his ventilation perfusion scan showed low likelihood. He continues to be in atrial fibrillation but the rate is controlled. Since admission there is no evidence of ventricle tachycardia. He underwent an echocardiogram that showed a normal left ventricle size and systolic function with mild pulmonary hypertension and mild mitral and tricuspid regurgitation. Patient apparently had epistaxis with aspirin and Plavix. He has prior history of diverticulosis and recurrent GI bleeding. He underwent repeat cardiac catheterization in June 2020 that showed no significant progression of disease with patent stent of the LAD placed in 2017. Medications: Lopressor 25 mg twice a day, lisinopril HCT 2024 milligrams daily, Crestor 10 mg daily, Protonix Review of Systems: Respiratory: No history of asthma, bronchitis or recent cough. GI: No nausea or vomiting . No history of peptic ulcer disease. No recent GI bleed. : No hematuria or dysuria. Nervous System: He has no high history of seizure or stroke in the past Physical Examination: 77-year-old male, alert and oriented with expressive aphasia,Blood pressure 145/70, Heart rate 60 Head: Normocephalic, nasal labial droop. Eyes: Sclerae nonicteric. Neck: Good carotid upstroke, no bruit, no jugular venous distention. Lungs: Clear to auscultation. Heart: Irregular rate and rhythm, S1-S2, no S3, no rub. Systolic ejection murmur. Abdomen: Soft nontender, positive bowel sounds no organomegaly. Extremities: No edema, intact distal pulses. Labs: Potassium 3.8, BUN 18, creatinine 1.0, hemoglobin 14.4. Troponin less than 0.012. NT proBNP 989 EKG: Atrial fibrillation with nonspecific ST-T wave changes Impression: 1. Acute CVA in a setting of chronic permanent atrial fibrillation, not an ticoagulated with prior watchman device 2. Chronic persistent atrial fibrillation, rate controlled, not anticoagulated because of recurrent bleeding 3. History of CAD stable 4. History of hyperlipidemia Plan: 1. Continue present therapy 2. Continue aspirin 3. May need to be evaluated for possible addition of anticoagulation because of recent stroke 4. Physical therapy 5. Depending on his progress further recommendations will be made, thank you for this consult we will follow with you here in Past Medical History Past Medical History: Atrial Fibrillation, Chest Pain / Angina, Hyperlipidemia, Hypertension, Prostate Disorder Additional Past Medical History / Comment(s): diverticulosis. Gastric bleeds (x4) with blood transfusions/ iron. see Dr romo history and physical for cardiac history. hx gout History of Any Multi-Drug Resistant Organisms: None Reported Past Surgical History: Cholecystectomy, Heart Catheterization, Heart Catheterization With Stent, Joint Replacement, Orthopedic Surgery, Tonsillectomy Additional Past Surgical History / Comment(s): vasectomy, cataract right eye , repair of nasal surgery,cardioversion. Watchman procedure- Sep 29, 2017, total right knee , left hip replacement Past Anesthesia/Blood Transfusion Reactions: No Reported Reaction Additional Past Anesthesia/Blood Transfusion Reaction / Comment(s): blood transfusion with no problem Date of Last Stent Placement:: 06/01/18 Past Psychological History: No Psychological Hx Reported Smoking Status: Never smoker Past Alcohol Use History: Rare Past Drug Use History: None Reported - Past Family History Father Family Medical History: Coronary Artery Disease (CAD) Mother Family Medical History: No Reported History Brother(s) Family Medical History: Coronary Artery Disease (CAD) Additional Family Medical History / Comment(s): CABG x2 Medications and Allergies Home Medications Medication Instructions Recorded Confirmed Type Zolpidem [Ambien] 10 mg PO HS 02/26/17 09/08/23 History Metoprolol Tartrate [Lopressor] 25 mg PO BID 06/01/18 09/08/23 History Nitroglycerin Sl Tabs [Nitrostat] 0.4 mg SUBLINGUAL Q5M PRN #30 tab 06/02/18 09/08/23 Rx Lisinopril-Hctz 20-25 mg 1 tab PO DAILY 06/24/20 09/08/23 History [Zestoretic 20-25] Pantoprazole [Protonix] 40 mg PO HS 09/08/23 09/08/23 History Rosuvastatin [Crestor] 10 mg PO HS 09/08/23 09/08/23 History allopurinoL 100 mg PO DAILY 09/08/23 09/08/23 History Allergies Allergy/AdvReac Type Severity Reaction Status Date / Time aspirin AdvReac Excessive Verified 09/08/23 09:49 Bleeding Physical Exam Vitals: Vital Signs Temp Pulse Resp BP Pulse Ox 09/09/23 09:00 60 29 H 145/71 95 09/09/23 08:00 97.8 F 59 L 23 143/85 94 L 09/09/23 07:00 60 11 L 141/87 98 09/09/23 06:00 20 145/90 96 09/09/23 05:00 60 9 L 134/106 95 09/09/23 04:00 66 12 125/73 93 L 09/09/23 03:00 12 128/67 95 09/09/23 02:00 57 L 10 L 143/82 94 L 09/09/23 01:00 58 L 26 H 154/94 92 L 09/09/23 00:00 66 H 117/89 93 L 09/08/23 23:36 61 30 H 117/89 93 L 09/08/23 23:00 31 H 126/72 96 09/08/23 22:00 66 26 H 93 L 09/08/23 21:30 73 33 H 95 09/08/23 21:00 23 131/78 96 09/08/23 20:30 97.6 F 66 25 H 131/78 97 09/08/23 20:00 74 29 H 95 09/08/23 19:30 70 40 H 94 L 09/08/23 19:00 70 24 142/76 95 09/08/23 18:30 66 20 142/76 09/08/23 18:00 65 28 H 128/76 98 09/08/23 17:30 64 25 H 113/79 96 09/08/23 17:00 73 26 H 127/65 96 09/08/23 16:30 74 36 H 120/87 96 09/08/23 16:00 98.4 F 77 22 131/63 93 L 09/08/23 15:30 98.2 F 72 15 144/100 95 09/08/23 15:02 72 30 H 95 09/08/23 14:00 165/101 09/08/23 13:54 82 22 98 09/08/23 12:39 78 18 158/87 96 09/08/23 10:03 84 20 175/90 92 L Intake and Output 09/08/23 09/09/23 09/09/23 22:59 06:59 14:59 Intake Total 1040 700 300 Output Total 505 550 125 Balance 535 150 175 Intake: IV 800 700 300 Sodium Chloride 0.9% 1, 800 700 300 000 ml @ 100 mls/hr IV . Q10H [facility] Rx#:[id number] Oral 240 Output: Urine 505 550 125 Other: Voiding Method Urinal Urinal Urinal # Voids 1 Weight 129 kg 130.3 kg Results 09/09/23 05:51 09/09/23 05:51 Cardiac Enzymes 09/08/23 09/08/23 09/08/23 Range/Units 09:58 09:58 13:08 AST 67 H (17-59) U/L Troponin I <0.012 <0.012 (0.000-0.034) ng/mL 09/08/23 Range/Units 15:03 AST (17-59) U/L Troponin I 0.014 (0.000-0.034) ng/mL Coagulation 09/08/23 Range/Units 09:58 PT 14.2 H (10.0-12.5) sec APTT 22.1 (22.0-30.0) sec CBC 09/08/23 09/09/23 Range/Units 09:58 05:51 WBC 6.5 8.6 (3.8-10.6) k/uL RBC 4.56 4.38 (4.30-5.90) m/uL Hgb 15.3 14.4 (13.0-17.5) gm/dL Hct 45.6 43.5 (39.0-53.0) % Plt Count 192 176 (150-450) k/uL Comprehensive Metabolic Panel 09/08/23 09/09/23 Range/Units 09:58 05:51 Sodium 140 137 (137-145) mmol/L Potassium 3.9 3.8 (3.5-5.1) mmol/L Chloride 104 103 (98-107) mmol/L Carbon Dioxide 24 22 (22-30) mmol/L BUN 20 18 (9-20) mg/dL Creatinine 1.28 H 1.00 (0.66-1.25) mg/dL Glucose 168 H 113 H (74-99) mg/dL Calcium 8.7 8.3 L (8.4-10.2) mg/dL AST 67 H (17-59) U/L ALT 58 H (4-49) U/L Alkaline Phosphatase 98 (38-126) U/L Total Protein 6.5 (6.3-8.2) g/dL Albumin 3.8 (3.5-5.0) g/dL Current Medications Generic Name Dose Route Start Last Admin Trade Name Freq PRN Reason Stop Dose Admin Allopurinol 100 mg 09/09/23 09:00 09/09/23 08:37 Allopurinol 100 Mg Tab PO 100 mg DAILY [facility] Administration Aspirin 300 mg 09/08/23 16:45 09/09/23 08:37 Aspirin 300 Mg Supp RECTAL 300 mg DAILY [facility]ALYA Administration Atorvastatin Calcium 20 mg 09/08/23 21:00 09/08/23 22:30 Atorvastatin 20 Mg Tab PO 20 mg HS [facility] Administration Enoxaparin Sodium 40 mg 09/09/23 09:00 09/09/23 08:37 Enoxaparin 40 Mg/0.4 Ml Syringe SQ 40 mg DAILY [facility]YA Administration Sodium Chloride 1,000 mls @ 100 mls/hr 09/08/23 13:45 09/09/23 08:38 Saline 0.9% IV 100 mls/hr .Q10H [facility] Administration Metoprolol Tartrate 25 mg 09/08/23 13:45 09/09/23 08:37 Metoprolol Tartrate 25 Mg Tab PO 25 mg BID [facility]YA Administration Morphine Sulfate 2 mg 09/08/23 11:24 Morphine Sulfate 2 Mg/Ml Syringe IV Q4HR PRN Severe Pain (Scale 7 to 10) Naloxone HCl 0.2 mg 09/08/23 11:19 Naloxone 0.4 Mg/Ml 1 Ml Vial IV Q2M PRN Opioid Reversal Pantoprazole Sodium 40 mg 09/08/23 21:00 09/09/23 08:37 Pantoprazole 40 Mg/10 Ml Vial IVP 40 mg BID TALYA Administration Zolpidem Tartrate 10 mg 09/08/23 21:00 09/09/23 01:17 Zolpidem 5 Mg Tab PO Not Given HS TALYA Intake and Output 11/01/2609/09/23 09/09/23 22:59 06:59 14:59 Intake Total 1040 700 300 Output Total 505 550 125 Balance 535 150 175 Intake: IV 800 700 300 Sodium Chloride 0.9% 1, 800 700 300 000 ml @ 100 mls/hr IV . Q10H [facility] Rx#:[id number] Oral 240 Output: Urine 505 550 125 Other: Voiding Method Urinal Urinal Urinal # Voids 1 Weight 129 kg 130.3 kg 09/09/23 05:51 09/09/23 05:51
--- NOTE | 2023-09-09 11:34 | P.PN ---
Subjective Progress Note Date: 09/09/23 Principal diagnosis: Acute CVA in a setting of chronic permanent atrial fibrillation This is a 77-year-old female patient with a known history of hyperlipidemia, hypertension, benign acetic hyperplasia, coronary disease with previous stent placement, atrial fibrillation with previous cardioversions. The patient has been off anticoagulation due to significant GI bleeds. He did have a watchman placed on 09/29/2017. Early this morning the patient seemed agitated around 1 A M and was pulling off his CPAP and getting up and going to the kitchen and was acting somewhat altered. When he woke up this morning he was unable to communicate and was aphasic. His believes his last well time was about 11 PM last night. On his way into the emergency room he had fallen and injured his right side. Unsteady. Remained aphasic. Code stroke was called. He was outside the window for TPA. Computed tomography scan of the brain reveals acute ischemic changes involving the left parietal, temporal and possibly a small portion of the left occipital lobe with no midline shift or acute hemorrhage. CT angiogram of the head and neck revealed possible moderate stenosis at the o rigin of the left vertebral artery. Common and internal carotid arteries were widely patent. No significant stenosis in the brain. There was an incidental finding of a possible right upper lobe segmental branch pulmonary embolus. Dopplers of the lower extremities were negative for DVT. White count 6.5. Hemoglobin 15.3. Platelets 192. INR 1.4. Sodium 140. Potassium 3.9. Bicarb 24. BUN 20. Creatinine 1.28. Glucose 168. AST 67. ALT 58. Creatinine kinase 52. Troponins negative x 2. ProBNP 989. The patient is seen in consultation in the intensive care unit. He is awake and alert in no acute distress. He is maintaining good O2 saturations in the 90s on room air. He is aphasic. He has some trouble following simple commands. He has a right upper extremity drift. Otherwise no other neurological deficits noted. He is currently in atrial fibrillation with a controlled ventricular response. Patient was very on 09/09/2023, patient remains in the ICU, he is on room air, IV fluid 0.9 normal saline at 100 mL per hour. Patient has expressive aphasia but no significant weakness noted on either side. Patient is on Lovenox, patient was out of the therapeutic window for TPA. Seen by neurology and he scheduled to have MRI today. I reviewed the VQ scan on this patient, patient had no probability for pulmonary embolism, hence no need for CT angiogram of the chest. The patient's initial presentation was a presentation of acute CVA with left parietotemporal ischemic area and right-sided weakness and expressive aphasia. In the past the patient could not tolerate anticoagulation therapy because of GI bleeding although he had atrial fibrillation but he had a watchman device and placed. Patient is being followed by many consultants including cardiology and neurology. MRI is pending his weakness on the right side seems to be getting much better today compared to yesterday. Continues to have a bit of expressive aphasia Objective - Vital Signs Vital signs: Vital Signs Temp 97.8 F 09/09/23 08:00 Pulse 76 09/09/23 11:00 Resp 39 H 09/09/23 11:00 BP 140/91 09/09/23 11:00 Pulse Ox 95 09/09/23 10:00 FiO2 Intake & Output 09/08/23 09/09/23 09/09/23 18:59 06:59 18:59 Intake Total 520 1220 500 Output Total 505 750 125 Balance 15 470 375 Weight 129 kg 130.3 kg Intake: IV 400 1100 500 Sodium Chloride 0.9% 1, 400 1100 500 000 ml @ 100 mls/hr IV . Q10H [facility] Rx#:[id number] Oral 120 120 Output: Urine 505 750 125 Other: Voiding Method Urinal Urinal Urinal # Voids 1 - Exam GENERAL EXAM: Revealed a 77-year-old white male, pleasant, in no distress, on room air. HEAD: Small abrasion over the right eye. Normocephalic. EYES: Normal reaction of pupils, equal size. NOSE: Clear with pink turbinates. THROAT: No erythema or exudates. NECK: No masses, no JVD. CHEST: No chest wall deformity. LUNGS: Clear bilaterally no crackles or rhonchi or wheezes CVS: Irregular irregular rhythm, normal S1 and S2 normal with no audible murmur ABDOMEN: Soft nontender no megaly no rebound no guarding SKIN: No rashes CENTRAL NERVOUS SYSTEM: No focal deficits, tone is normal in all 4 extremities. Patient clearly has some expressive aphasia EXTREMITIES: Minimal Right upper extremity drift. Otherwise no gross focal deficits. - Labs CBC & Chem 7: 09/09/23 05:51 09/09/23 05:51 Labs: Abnormal Lab Results - Last 24 Hours (Table) 09/08/23 09/08/23 09/08/23 Range/Units 09:58 14:59 15:03 D-Dimer 4.59 H (<0.60) mg/L FEU Glucose (74-99) mg/dL POC Glucose (mg/dL) 125 H (70-110) mg/dL Hemoglobin A1c (<=6.0) % Calcium (8.4-10.2) mg/dL Ur Specific Girard 1.050 H (1.001-1.035) Urine Blood Large H (Negative) Urine RBC >182 H (0-5) /hpf Urine Mucus Rare H (None) /hpf 09/09/23 09/09/23 Range/Units 05:51 05:51 D-Dimer (<0.60) mg/L FEU Glucose 113 H (74-99) mg/dL POC Glucose (mg/dL) (70-110) mg/dL Hemoglobin A1c 7.1 H (<=6.0) % Calcium 8.3 L (8.4-10.2) mg/dL Ur Specific Girard (1.001-1.035) Urine Blood (Negative) Urine RBC (0-5) /hpf Urine Mucus (None) /hpf Assessment and Plan Assessment: Impression: Acute cerebrovascular accident with aphasia secondary to acute ischemic changes involving the left parietal, temporal and possibly a small portion of left occipital lobe. Patient presented with out of the time window for TPA Expressive Aphasia secondary to above Unsteady gait with fall entering the hospital, related to right sided weakness History of atrial fibrillation not on anticoagulation due to history of GI b kayyd, Watchman device placed in 2017 History of previous GI bleeds x 4 requiring blood transfusion Hypertension Hyperlipidemia Coronary disease with previous stent placement Benign prostatic hyperplasia Diverticulosis History of gout Chronic atrial fibrillation, previous placement of a watchman device Recommendation: Continue present supportive care measures Reviewed the VQ scan, low probably for pulmonary embolism Continue Lovenox Patient received Plavix. Neurology is recommending MRI May have to eventually reconsider the issue of anticoagulation on this patient, that will be decided upon by neurology. We will continue to follow. Time with Patient: Less than 30
--- NOTE | 2023-09-09 13:36 | MR ---
EXAMINATION TYPE: MR brain wo con DATE OF EXAM: 09/09/2023 1:26 PM CLINICAL INDICATION:Male, 77 years old with history of CVA;, Slurred speech, right arm weakness. COMPARISON: CT brain 09/08/2023. TECHNIQUE: Multi planar, multi sequence imaging was performed through the brain including: T1, T2, In version recovery, Diffusion weighted imaging. No gadolinium was given. FINDINGS: Large area of restricted diffusion involving the left MCA territory including the left temp oral, left parietal, left insular cortex, and portion of the left occipital lobe.The nicole-white junct ions, ventricular system, and cisterns appear unremarkable. Minimal scattered foci of high T2 signal intensity are seen within the periventricular white matter. Midline structures show no abnormality. The bone marrow signal is within normal limits. Paranasal sinuses and mastoid air cells: Mucosal thickening most pronounced in the maxillary sinuses. Visualized orbits: Right aphakia IMPRESSION: 1. Findings confirmed from CT with Acute/subacute CVA involving the left MCA territory predominantly involving the left temporal, parietal and temporal lobes. 2. Nonspecific white matter changes, likely secondary to small vessel ischemic disease.
[2023-09-09 14:20] LABS: Chol/HDL Ratio 3.24 Ratio; LDL Cholesterol,Calculated 56.3 mg/dL (0.0-131.0)
[2023-09-09] MEDS: ATORVASTATIN 20 MG TAB PO SCH (21:25)
--- NOTE | 2023-09-09 21:29 | P.PN ---
Subjective Progress Note Date: 09/09/23 The pt is a 77 y/o male who is seen in neurologic follow up on 2022, in collaboration with Dahlia Burns, via teleneurology. The pt's chart has been reviewed. Imaging has been viewed. The pt reportedly presented to the ER with expressive aphasia. CT scan of the brain revealed evidence of an ischemic infarct in the left MCA territory. He was not a TPA candidate as he was outside of the time window. This morning, the pt states that he is feeling better. His speech is slightly improved. Objective - Vital Signs Vital signs: Vital Signs Temp 98.1 F 09/09/23 20:00 Pulse 67 09/09/23 20:00 Resp 16 09/09/23 20:00 BP 153/88 09/09/23 20:00 Pulse Ox 93 L 09/09/23 20:00 FiO2 Intake & Output 09/09/23 09/09/23 09/10/23 06:59 18:59 05:59 Intake Total 1220 1200 200 Output Total 750 525 Balance 470 675 200 Weight 130.3 kg Intake: IV 1100 1200 200 Sodium Chloride 0.9% 1, 1100 1200 200 000 ml @ 100 mls/hr IV . Q10H [facility] Rx#:[id number] Oral 120 Output: Urine 750 525 Other: Voiding Method Urinal Urinal Urinal # Voids 1 1 # Bowel Movements 1 - Exam General: The pt is seated in the bedside chair. He is in no distress. Neurologic examination Mental status: Patient is alert awake. Patient appears aphasic. He is able to state his names. Speech is clear with no obvious dysarthria. There appears to be slight receptive aphasia as well. The pt has difficulty following some s imple commands. He is unable to shrug his shoulders when asked and demonstrated to him. There is right/left confusion and right sided neglect. On cranial nerve examination, pupils are equal, round and reacting to light, visual walton reveal complete right homonymous hemianopia. Extraocular muscles are intact with no nystagmus. There is a right facial droop. The pt is unable to protrude his tongue. The pt was unable to shrug his shoulders. Motor: Bilateral upper extremity strength 5/5 - Labs CBC & Chem 7: 09/09/23 05:51 09/09/23 05:51 Labs: Abnormal Lab Results - Last 24 Hours (Table) 09/09/23 09/09/23 Range/Units 05:51 05:51 Glucose 113 H (74-99) mg/dL Hemoglobin A1c 7.1 H (<=6.0) % Calcium 8.3 L (8.4-10.2) mg/dL HDL Cholesterol 35.50 L (40.00-60.00) mg/dL Assessment and Plan Assessment: Acute ischemic stroke, with severe expressive aphasia. * Atrial fibrillation, status post watchman device 5 years ago. * Hypertension * Hyperlipidemia * Coronary artery disease * History of multiple GI bleeds due to diverticulosis Plan: * Patient had an acute ischemic stroke. Patient was not a candidate for TPA, because he came outside the window for TPA. Also that his computed tomography scan was positive for moderate size CVA, indicative of high risk of hemorrhagic conversion. * MRI of the brain without contrast-pending at this time. * 2-D echo revealed moderately increased left atrial diameter. Left-ventricular ejection fraction is 55-60%. Normal left ventricular cavity. Dilated right ventricle. Mild MR. * CTA neck showed: Unable to exclude incidental right upper lobe segmental branch pulmonary embolism. Possible moderate stenosis origin of the left vertebral artery. The common and internal carotid arteries appear widely patent. * CTA of the head showed no large vessel intracranial arterial occlusion, significant stenosis or aneurysm. On axial images, there is some paucity in the enhancement of the M3 branches of the left MCA laterally. This may be due to distal vessel thrombosis. * Fasting a.m. lipid panel * Hemoglobin A1c * Permissive hypertension for next 24-48 hours * Neuro checks every 2 hour. * Telemetry monitoring rule out any arrhythmia * PT, OT, speech therapy * DVT prophylaxis: Lovenox 40 mg subcu daily * patient's mentions that patient is clearly DO NOT RESUSCITATE, DO NOT INTUBATE. Time with Patient: Less than 30
[2023-09-09] MEDS: MORPHINE SULFATE 2 MG/ML SYRINGE IV PRN (22:30)
[2023-09-10] MEDS: MORPHINE SULFATE 2 MG/ML SYRINGE IV PRN ×2 (04:21→21:31)
[2023-09-10 06:07] LABS: Basophils % (A) 0 %; Eosinophils # (A) 0.1 k/uL (0-0.7); Eosinophils % (A) 1 %; HCT 44.1 % (39.0-53.0); HGB 14.8 gm/dL (13.0-17.5); Lymphocytes # (A) 0.6 k/uL (1.0-4.8); Lymphocytes % (A) 7 %; MCH 33.4 pg (25.0-35.0); MCHC 33.6 g/dL (31.0-37.0); MCV 99.4 fL (80.0-100.0); Mean Platelet Volume 7.9; Monocytes # (A) 0.8 k/uL (0-1.0); Monocytes % (A) 9 %; Neutrophils # (A) 7.1 k/uL (1.3-7.7); Neutrophils % (A) 81 %; Platelet Count 161 k/uL (150-450); RBC 4.43 m/uL (4.30-5.90); RDW 13.3 % (11.5-15.5); WBC 8.8 k/uL (3.8-10.6)
[2023-09-10 06:25] LABS: African American GFR (CKD) >90 (>60 ml/min/1.73 sqM); Anion Gap 10 mmol/L; Blood Urea Nitrogen 19 mg/dL (9-20); Calcium 8.1 mg/dL (8.4-10.2); Carbon Dioxide 19 mmol/L (22-30); Chloride 105 mmol/L (98-107); Glucose 108 mg/dL (74-99); Non-African American GFR(CKD) 83 (>60 ml/min/1.73 sqM); Sodium 134 mmol/L (137-145)
[2023-09-10 06:28] LABS: Magnesium 1.6 mg/dL (1.6-2.3); Potassium 4.2 mmol/L (3.5-5.1)
[2023-09-10] MEDS: PANTOPRAZOLE 40 MG/10 ML VIAL IVP SCH ×2 (08:10→20:21)
[2023-09-10] MEDS: METOPROLOL TARTRATE 25 MG TAB PO SCH ×2 (08:11→20:21)
[2023-09-10] MEDS: SODIUM CHLORIDE 0.9% 1,000 ML IV SCH (08:11)
[2023-09-10] MEDS: allopurinoL 100 MG TAB PO SCH (08:11)
[2023-09-10] MEDS: ENOXAPARIN 40 MG/0.4 ML SYRINGE SQ SCH (08:11)
[2023-09-10] MEDS: ASPIRIN 300 MG SUPP RECTAL SCH (08:11)
--- NOTE | 2023-09-10 09:03 | P.PN ---
Subjective Patient is a pleasant 77-year-old male came in with a cerebrovascular accident involving right side of the body with improvement in his weakness in the right side. Patient has 4/5 strength in the right upper and lower extremities patient does have Wernicke's aphasia which is consistent with his stroke in the left temporoparietal area as per the computed tomography scan patient is awaiting MRI echocardiogram did not show any significant abnormality. CT angiogram of the head and neck showed moderate stenosis but no significant stenosis that will need intervention at this time. Patient has history of atrial fibrillation but not on anticoagulation because of his multiple GI bleed and did have Oshman procedure about 4 years ago. There was a concern about pulmonary embolism as well as per the reading of her CT angios of the chest this cannot be ruled out., Although possibility of this is low because of which patient was started on anticoagulation instead patient will undergo VQ scan pulmonary, neurology are following the patient today. Patient is presently receiving that less than 300 mg. Patient is also on DVT prophylaxis at this time. 09/10/2023 Patient's VQ scan is negative for any pulmonary embolism, physical therapy and outpatient therapy evaluation and inpatient medicine rehabitation evaluation. MRI of the brain did show acute cerebrovascular accident involving left MCA territory involving the left temporal parietal lobes. Constitutional: Denied any fatigue denied any fever. Cardio vascular: denied any chest pain, palpitations Gastrointestinal denied any nausea vomiting Pulmonary: Denied any shortness of breath cough Neurologic neuro symptoms as mentioned above All inpatient medications were reviewed and appropriate changes in these medications as dictated in the interval history and assessment and plan. PHYSICAL EXAMINATION: GENERAL: The patient is alert and oriented x3, not in any acute distress. Well developed, well nourished. HEENT: Pupils are round and equally reacting to light. EOMI. No scleral icterus. No conjunctival pallor. Normocephalic, atraumatic. No pharyngeal erythema. No thyromegaly. CARDIOVASCULAR: S1 and S2 present. No murmurs, rubs, or gallops. PULMONARY: Chest is clear to auscultation, no wheezing or crackles. ABDOMEN: Soft, nontender, nondistended, normoactive bowel sounds. No palpable organomegaly. MUSCULOSKELETAL: No joint swelling or deformity. EXTREMITIES: No cyanosis, clubbing, or pedal edema. NEUROLOGICAL: Focal deficits on the right side as mentioned in the interval history and Wernicke's aphasia SKIN: No rashes. -Assessment and plan -Acute cerebral vascular accident involving the left that parietotemporal area leading to right-sided weakness and Wernicke's aphasia, continue with the rectal aspirin was monitored for any GI bleed. Physical therapy occupational therapy evaluation awaiting MRI. Rest of the workup as mentioned above. Inpatient r ehabilitation evaluation -Proximal atrial fibrillation: Patient heart rate is well controlled at this time. Patient is watch procedure patient is not on anticoagulation because of multiple GI bleeds in the past -Concerns about pulmonary embolism: VQ scan is negative for pulmonary embolism -Benign prostatic hyperplasia -Coronary artery disease with stent placement -Hypertension -Hyperlipidemia -DVT prophylaxis: Subcutaneous Lovenox Objective - Vital Signs Vital signs: Vital Signs Temp 98.5 F 09/10/23 08:00 Pulse 68 09/10/23 08:00 Resp 18 09/10/23 08:00 BP 123/90 09/10/23 08:00 Pulse Ox 96 09/10/23 08:00 FiO2 Intake & Output 09/09/23 09/10/23 09/10/23 19:59 06:59 18:59 Intake Total 200 Output Total Balance 200 Weight Intake: IV 200 Sodium Chloride 0.9% 1, 200 000 ml @ 100 mls/hr IV . Q10H [facility] Rx#:[id number] Output: Urine Other: Voiding Method Urinal # Voids # Bowel Movements - Labs CBC & Chem 7: 09/10/23 05:14 09/10/23 05:22 Labs: Abnormal Lab Results - Last 24 Hours (Table) 09/09/23 09/10/23 09/10/23 Range/Units 05:51 05:14 05:22 Lymphocytes # 0.6 L (1.0-4.8) k/uL Sodium 134 L (137-145) mmol/L Carbon Dioxide 19 L (22-30) mmol/L Glucose 108 H (74-99) mg/dL Calcium 8.1 L (8.4-10.2) mg/dL HDL Cholesterol 35.50 L (40.00-60.00) mg/dL
--- NOTE | 2023-09-10 09:10 | P.PN ---
Subjective Progress Note Date: 09/10/23 PROGRESS NOTE The patient is a 77-year-old male with a known history of CAD status post stenting of the LAD, history of chronic persistent atrial fibrillation with GI bleeding status post watchman device, history of hypertension, hyperlipidemia who presented with left sided weakness and was diagnosed with CVA. He is followed on a regular basis by Dr. Gongora. He has underwent an MPI in November 2019 that showed no evidence of stress-induced ischemia. He is awake, alert, following commands but has expressive aphasia. There was a question of pulmonary embolism but his ventilation perfusion scan showed low likelihood. He continues to be in atrial fibrillation but the rate is controlled. Since a dmission there is no evidence of ventricle tachycardia. He underwent an echocardiogram that showed a normal left ventricle size and systolic function with mild pulmonary hypertension and mild mitral and tricuspid regurgitation. Patient apparently had epistaxis with aspirin and Plavix. He has prior history of diverticulosis and recurrent GI bleeding. He underwent repeat cardiac catheterization in June 2020 that showed no significant progression of disease with patent stent of the LAD placed in 2017. September 10: The patient feels well, has some episodes of confusion but his expressive apha dane is better. He is in atrial fibrillation with controlled ventricular response. Hemodynamically he is stable. He has no evidence of ventricular tachycardia. His MRI showed evidence of acute and subacute CVA involving the left MCA. Medications: Aspirin, Lipitor 20 mg daily, metoprolol 25 mg twice a day PHYSICAL EXAMINATION: Blood pressure 123/90 heart rate 60, speech improved LUNGS: Clear to auscultation HEART: Irregular rate and rhythm, S1, S2. No S3. Systolic ejection murmur ABDOMEN: Soft, nontender, no organomegaly EXTREMETIES: No edema LAB: Potassium 4.2 , BUN 19, creatinine 0.87 IMPRESSION: 1. Status post CVA with left MCA infarct 2. Persistent atrial fibrillation, status post watchman, not anticoagulated because of recurrent bleeding 3. History of CAD with no evidence of acute coronary syndrome 4. History of hypertension 5. History of hyperlipidemia PLAN: 1. Continue present therapy 2. Increase physical activity 3. Depending on his progress further recommendations will be made Objective - Vital Signs Vital signs: Vital Signs Temp 98.5 F 09/10/23 08:00 Pulse 68 09/10/23 08:00 Resp 18 09/10/23 08:00 BP 123/90 09/10/23 08:00 Pulse Ox 96 11/05/23 08:00 FiO2 Intake & Output 09/09/23 09/10/23 09/10/23 19:59 06:59 18:59 Intake Total 200 Output Total Balance 200 Weight Intake: IV 200 Sodium Chloride 0.9% 1, 200 000 ml @ 100 mls/hr IV . Q10H [facility] Rx#:[id number] Output: Urine Other: Voiding Method Urinal # Voids # Bowel Movements - Labs CBC & Chem 7: 09/10/23 05:14 09/10/23 05:22 Labs: Abnormal Lab Results - Last 24 Hours (Table) 09/09/23 09/10/23 09/10/23 Range/Units 05:51 05:14 05:22 Lymphocytes # 0.6 L (1.0-4.8) k/uL Sodium 134 L (137-145) mmol/L Carbon Dioxide 19 L (22-30) mmol/L Glucose 108 H (74-99) mg/dL Calcium 8.1 L (8.4-10.2) mg/dL HDL Cholesterol 35.50 L (40.00-60.00) mg/dL
--- NOTE | 2023-09-10 12:24 | P.PN ---
Subjective Progress Note Date: 09/10/23 Principal diagnosis: Acute CVA in a setting of chronic permanent atrial fibrillation This is a 77-year-old female patient with a known history of hyperlipidemia, hypertension, benign acetic hyperplasia, coronary disease with previous stent placement, atrial fibrillation with previous cardioversions. The patient has been off anticoagulation due to significant GI bleeds. He did have a watchman placed on 09/29/2017. Early this morning the patient seemed agitated around 1 A M and was pulling off his CPAP and getting up and going to the kitchen and was acting somewhat altered. When he woke up this morning he was unable to communicate and was aphasic. His believes his last well time was about 11 PM last night. On his way into the emergency room he had fallen and injured his right side. Unsteady. Remained aphasic. Code stroke was called. He was outside the window for TPA. Computed tomography scan of the brain reveals acute ischemic changes involving the left parietal, temporal and possibly a small portion of the left occipital lobe with no midline shift or acute hemorrhage. CT angiogram of the head and neck revealed possible moderate stenosis at the o rigin of the left vertebral artery. Common and internal carotid arteries were widely patent. No significant stenosis in the brain. There was an incidental finding of a possible right upper lobe segmental branch pulmonary embolus. Dopplers of the lower extremities were negative for DVT. White count 6.5. Hemoglobin 15.3. Platelets 192. INR 1.4. Sodium 140. Potassium 3.9. Bicarb 24. BUN 20. Creatinine 1.28. Glucose 168. AST 67. ALT 58. Creatinine kinase 52. Troponins negative x 2. ProBNP 989. The patient is seen in consultation in the intensive care unit. He is awake and alert in no acute distress. He is maintaining good O2 saturations in the 90s on room air. He is aphasic. He has some trouble following simple commands. He has a right upper extremity drift. Otherwise no other neurological deficits noted. He is currently in atrial fibrillation with a controlled ventricular response. Patient was very on 09/09/2023, patient remains in the ICU, he is on room air, IV fluid 0.9 normal saline at 100 mL per hour. Patient has expressive aphasia but no significant weakness noted on either side. Patient is on Lovenox, patient was out of the therapeutic window for TPA. Seen by neurology and he scheduled to have MRI today. I reviewed the VQ scan on this patient, patient had no probability for pulmonary embolism, hence no need for CT angiogram of the chest. The patient's initial presentation was a presentation of acute CVA with left parietotemporal ischemic area and right-sided weakness and expressive aphasia. In the past the patient could not tolerate anticoagulation therapy because of GI bleeding although he had atrial fibrillation but he had a watchman device and placed. Patient is being followed by many consultants including cardiology and neurology. MRI is pending his weakness on the right side seems to be getting much better today compared to yesterday. Continues to have a bit of expressive aphasia Patient was reevaluated today on 09/10/2023, remains in the ICU, hemodynamically stable, on IV fluid at 0.9 normal saline, he is on room air, does not seem to be in any distress, and no significant neurological change in the last 24 hours, continues to have expressive aphasia. Patient is being followed by neurology, MRI confirmed the findings on the CT of the brain showing left hemispheric CVA. Consistent with a left middle cerebral artery infarct. Patient is in atrial fibrillation, he had previous watchman device placed, not on any anticoagulation therapy and he does have history of coronary artery disease without acute coronary syndrome. Labs today showed a relatively normal CBC and normal electrolytes normal renal Objective - Vital Signs Vital signs: Vital Signs Temp 98.2 F 09/10/23 12:00 Pulse 67 09/10/23 12:00 Resp 30 H 09/10/23 12:00 BP 172/113 09/10/23 12:00 Pulse Ox 96 09/10/23 12:00 FiO2 Intake & Output 09/09/23 09/10/23 09/10/23 19:59 06:59 18:59 Intake Total 400 Output Total 150 Balance 250 Weight Intake: IV 400 Sodium Chloride 0.9% 1, 400 000 ml @ 100 mls/hr IV . Q10H [facility] Rx#:[id number] Output: Urine 150 Other: Voiding Method Urinal # Voids # Bowel Movements - Exam GENERAL EXAM: Revealed a 77-year-old white male, pleasant, in no distress, on room air. HEAD: Small abrasion over the right eye. Normocephalic. EYES: Normal reaction of pupils, equal size. NOSE: Clear with pink turbinates. THROAT: No erythema or exudates. NECK: No masses, no JVD. CHEST: No chest wall deformity. However the patient does have tenderness over the right sided anterior chest wall area. Related to his recent fall LUNGS: Clear bilaterally no crackles or rhonchi or wheezes CVS: Irregular irregular rhythm, normal S1 and S2 normal with no audible murmur ABDOMEN: Soft nontender no megaly no rebound no guarding SKIN: No rashes CENTRAL NERVOUS SYSTEM: No focal deficits, tone is normal in all 4 extremities. Patient clearly has some expressive aphasia EXTREMITIES: Minimal Right upper extremity drift. Otherwise no gross focal deficits. - Labs CBC & Chem 7: 09/10/23 05:14 09/10/23 05:22 Labs: Abnormal Lab Results - Last 24 Hours (Table) 09/09/23 09/10/23 09/10/23 Range/Units 05:51 05:14 05:22 Lymphocytes # 0.6 L (1.0-4.8) k/uL Sodium 134 L (137-145) mmol/L Carbon Dioxide 19 L (22-30) mmol/L Glucose 108 H (74-99) mg/dL Calcium 8.1 L (8.4-10.2) mg/dL HDL Cholesterol 35.50 L (40.00-60.00) mg/dL Assessment and Plan Assessment: Impression: Acute cerebrovascular accident with aphasia secondary to acute ischemic changes involving the left parietal, temporal and possibly a small portion of left occipital lobe. Patient presented with out of the time window for TPA Expressive Aphasia secondary to above Unsteady gait with fall entering the hospital, related to right sided weakness History of atrial fibrillation not on anticoagulation due to history of GI bleed, Watchman device placed in 2017 History of previous GI bleeds x 4 requiring blood transfusion Hypertension Hyperlipidemia Coronary disease with previous stent placement Benign prostatic hyperplasia Diverticulosis History of gout Chronic atrial fibrillation, previous placement of a watchman device Recommendation: Will recommend transferring the patient to a cardiac floor. No active pulmonary issues at this point, Continue present supportive care measures VQ scan was reviewed again, there is no evidence of pulmonary embolism Continue Lovenox MRI was reviewed and confirms the finding of left middle cerebral artery infarct Neurology is continuing to follow Considering no active pulmonary issues we will follow the patient as needed. Time with Patient: Less than 30
--- NOTE | 2023-09-10 14:26 | XR ---
Abdomen HISTORY: Abdominal pain COMPARISON: None TECHNIQUE: 3 supine views of the abdomen were obtained The exam is markedly limited due to involuntary patient motion. The bowel gas pattern is nonspecific. There is a left hip prosthesis. There is a probable nondisplaced fracture of the right eighth rib and possibly the left 11th rib late rally. IMPRESSION: 1. Limited study. 2. Grossly nonspecific bowel gas pattern. 3. questionable rib fractures as described above. Clinical correlation recommended.
--- NOTE | 2023-09-10 17:37 | P.PN ---
Subjective Progress Note Date: 09/10/23 The pt is a 77 y/o male who is seen in neurologic follow up on 2022, in collaboration with Dahlia Burns, via teleneurology. The pt's chart has been reviewed. Imaging has been viewed. MRI of brain confirms known LMCA territory infarct. There is no sign of hemorrhage. These images have been personally reviewed. Today, the pt is reclining in the bed. His is present at the bedside. He is complaining of right sided chest and belly pain. Per nursing, the pt's urinary output has been low. The pt reports having a poor appetite. According to the pt's , the pt did fall, on his way into the hospital. She is concerned about broken ribs. The CXR reportedly did not show signs of rib fractures. Objective - Vital Signs Vital signs: Vital Signs Temp 97.8 F 09/10/23 04:00 Pulse 69 09/10/23 05:00 Resp 18 09/10/23 05:00 BP 149/89 09/10/23 05:00 Pulse Ox 94 L 09/10/23 05:00 FiO2 Intake & Output 09/09/23 09/10/23 09/10/23 19:59 06:59 18:59 Intake Total Output Total Balance Weight Intake: IV Sodium Chloride 0.9% 1, 000 ml @ 100 mls/hr IV . Q10H [facility] Rx#:[id number] Output: Urine Other: Voiding Method # Voids # Bowel Movements - Exam General: The pt is reclining in the bed. He is in mild distress, secondary to abdominal pain. Abdomin: there is mild tenderness to palpation of the right lower quadrant. Neurologic examination Mental status: Patient is alert awake. Patient continues to be aphasic. He is able to state his names. Speech is clear with no obvious dysarthria. There appears to be slight receptive aphasia as well. The pt has difficulty following some simple commands. There is right/left confusion and right sided neglect. On cranial nerve examination, pupils are equal, round and reactive to light, visual walton reveal complete right homonymous hemianopia. Extraocular muscles are intact with no nystagmus. There is a right facial droop. The pt is unable to protrude his tongue. The pt was unable to shrug his shoulders. Motor: Bilateral upper extremity strength 03/10 - Labs CBC & Chem 7: 09/10/23 05:14 09/10/23 05:22 Labs: Abnormal Lab Results - Last 24 Hours (Table) 09/09/23 09/09/23 09/10/23 Range/Units 05:51 05:51 05:14 Lymphocytes # 0.6 L (1.0-4.8) k/uL Sodium (137-145) mmol/L Carbon Dioxide (22-30) mmol/L Glucose (74-99) mg/dL Hemoglobin A1c 7.1 H (<=6.0) % Calcium (8.4-10.2) mg/dL HDL Cholesterol 35.50 L (40.00-60.00) mg/dL 09/10/23 Range/Units 05:22 Lymphocytes # (1.0-4.8) k/uL Sodium 134 L (137-145) mmol/L Carbon Dioxide 19 L (22-30) mmol/L Glucose 108 H (74-99) mg/dL Hemoglobin A1c (<=6.0) % Calcium 8.1 L (8.4-10.2) mg/dL HDL Cholesterol (40.00-60.00) mg/dL Assessment and Plan Assessment: Acute ischemic stroke, with severe expressive aphasia. * Atrial fibrillation, status post watchman device 5 years ago. * Hypertension * Hyperlipidemia * Coronary artery disease * History of multiple GI bleeds due to diverticulosis * Abdominal pain, poss. urinary retention vs constipation vs rib fracture Plan: * Patient had an acute ischemic stroke. Patient was not a candidate for TPA, because he came outside the window for TPA. Also that his computed tomography scan was positive for moderate size CVA, indicative of high risk of hemorrhagic conversion. * MRI of the brain without contrast-confirms known LMCA infarct. * 2-D echo revealed moderately increased left atrial diameter. Left-ventricular ejection fraction is 55-60%. Normal left ventricular cavity. Dilated right ventricle. Mild MR. * CTA neck showed: Unable to exclude incidental right upper lobe segmental branch pulmonary embolism. Possible moderate stenosis origin of the left vertebral artery. The common and internal carotid arteries appear widely patent. * CTA of the head showed no large vessel intracranial arterial occlusion, significant stenosis or aneurysm. On axial images, there is some paucity in the enhancement of the M3 branches of the left MCA laterally. This may be due to distal vessel thrombosis. * Bladder scan * Abdominal X ray * Consult PM&R for inpt rehab placement Dr. Santino Echevarria will assume neurologic coverage of this pt as of 2022 Time with Patient: Greater than 30 (spent 35 minutes)
[2023-09-10] MEDS: ZOLPIDEM 5 MG TAB PO SCH (20:21)
[2023-09-10] MEDS: ATORVASTATIN 40 MG TAB PO SCH (20:21)
[2023-09-11] MEDS: PANTOPRAZOLE 40 MG/10 ML VIAL IVP SCH ×2 (08:03→21:04)
[2023-09-11] MEDS: METOPROLOL TARTRATE 25 MG TAB PO SCH ×2 (08:24→21:04)
[2023-09-11] MEDS: ENOXAPARIN 40 MG/0.4 ML SYRINGE SQ SCH (08:24)
[2023-09-11] MEDS: allopurinoL 100 MG TAB PO SCH (08:24)
--- NOTE | 2023-09-11 09:33 | P.CONS ---
History of Present Illness - Reason for Consult Consult date: 09/11/23 rehab recommendations - Chief Complaint CVA - History of Present Illness Patient is a 77-year-old right-handed male who lives with his in a single story home with 3 GEOVANY. Prior to admission, he was independent with mobility and ADLs. He has good support from his . Patient presented to the hospital on 09/08/23 for acute stroke symptoms. Patiet reportedly told his he did not sleep well and chose not to wear his CPAP the night before. When he was in the shower he wa talking "gibberish" and not makying sense. His ramon him to the hospital.He did have a fall in the [place]king lot on his right side while getting into the hospital, and since has been complaining of some right-sided chest pain. No fractures noted on the x-ray. Vital signs on arrival blood pressure 159/78, pulse rate 88, temperature 98.0. Blood pressure shows normal CBC, INR 1.4, PTT is normal, electrolytes are normal, BUN 20, creatinine 1.28. AST is 67, ALT 58, troponin negative, UA negative with some hematuria. CT head revealed findings highly suggestive of acute ischemic changes involving the left parietal, temporal and possibly a small portion of the left occipital lobe with no midline shift or acute hemorrhage. Chest x-ray revealed correlate for CHF favored over interstitial pneumonia. EKG shows atrial fibrillation. Venous Doppler negative for DVT bilaterally. In the ER, patient was evaluated by the ED staff. Patient's NIH stroke scale was 5.He was determined not a candidate for TPA. Also not a candidate for any neurological intervention. Patient has history of atrial fibrillation diagnosed 6 or 7 years ago. He underwent watchman device 5 years ago in [facility]. He was placed on aspirin, but he developed severe GI bleed 6-7 different times. One time his hemoglobin went down from 13-4, Therefore he is not on any antiplatelets. Patient has history of essential tremor. MRI brain recommended. 2 D echo with EF 55-60 %. CTA head and neck reviewed. Patient's symptoms appeared to get worse in the ER, plavix was changed to ASA 300 mg rectally everyday. MRI brain confirmed left MCA territory infarct. He had a VQ scan which was negative for PE. Patient was followed by neurology, cardiology, pulmonology and hospitalist. PM&R consulted for rehab recommendations. Patient is pending speech and OT evaluations, transfers supervision, gait min assist 40 ft hand held. Answers yes/no relatively consistently. Notes can be SOB at times, had some CP; denies other pain complaints. Review of Systems reviewed, negative unless stated above in HPI Past Medical History Past Medical History: Atrial Fibrillation, Chest Pain / Angina, Hyperlipidemia, Hypertension, Prostate Disorder Additional Past Medical History / Comment(s): diverticulosis. Gastric bleeds (x4) with blood transfusions/ iron. see Dr romo history and physical for cardiac history. hx gout History of Any Multi-Drug Resistant Organisms: None Reported Past Surgical History: Cholecystectomy, Heart Catheterization, Heart Catheterization With Stent, Joint Replacement, Orthopedic Surgery, Tonsillectomy Additional Past Surgical History / Comment(s): vasectomy, cataract right eye , repair of nasal surgery,cardioversion. Watchman procedure- Sep 29, 2017, total right knee , left hip replacement Past Anesthesia/Blood Transfusion Reactions: No Reported Reaction Additional Past Anesthesia/Blood Transfusion Reaction / Comm: blood transfusion with no problem Date of Last Stent Placement:: 06/01/18 Past Psychological History: No Psychological Hx Reported Smoking Status: Never smoker Past Alcohol Use History: Rare Past Drug Use History: None Reported - Past Family History Father Family Medical History: Coronary Artery Disease (CAD) Mother Family Medical History: No Reported History Brother(s) Family Medical History: Coronary Artery Disease (CAD) Additional Family Medical History / Comment(s): CABG x2 Medications and Allergies Home Medications Medication Instructions Recorded Confirmed Type Zolpidem [Ambien] 10 mg PO HS 02/26/17 09/08/23 History Metoprolol Tartrate [Lopressor] 25 mg PO BID 06/01/18 09/08/23 History Nitroglycerin Sl Tabs [Nitrostat] 0.4 mg SUBLINGUAL Q5M PRN #30 tab 06/02/18 09/08/23 Rx Lisinopril-Hctz 20-25 mg 1 tab PO DAILY 06/24/20 09/08/23 History [Zestoretic 20-25] Pantoprazole [Protonix] 40 mg PO HS 09/08/23 09/08/23 History Rosuvastatin [Crestor] 10 mg PO HS 09/08/23 09/08/23 History allopurinoL 100 mg PO DAILY 09/08/23 09/08/23 History Allergies Allergy/AdvReac Type Severity Reaction Status Date / Time aspirin AdvReac Excessive Verified 09/08/23 09:49 Bleeding Physical Exam Vitals: Vital Signs Temp Pulse Pulse Resp BP BP BP 09/11/23 07:17 97.8 F 83 18 163/97 09/11/23 02:00 97.5 F L 85 16 153/79 09/10/23 21:00 98.1 F 80 16 183/124 09/10/23 17:55 98.6 F 77 18 157/91 09/10/23 17:00 65 24 148/81 09/10/23 16:00 98.6 F 67 18 165/99 09/10/23 15:00 72 22 134/87 09/10/23 14:00 69 20 169/87 09/10/23 13:00 65 23 149/88 09/10/23 12:00 98.2 F 67 23 150/84 09/10/23 11:00 62 23 140/82 09/10/23 10:00 69 22 141/89 Pulse Ox 09/11/23 07:17 93 L 09/11/23 02:00 92 L 09/10/23 21:00 94 L 09/10/23 17:55 95 09/10/23 17:00 94 L 09/10/23 16:00 93 L 09/10/23 15:00 95 09/10/23 14:00 98 09/10/23 13:00 98 09/10/23 12:00 96 09/10/23 11:00 95 09/10/23 10:00 93 L Intake and Output 09/10/23 09/11/23 09/11/23 22:59 06:59 14:59 Intake Total 100 590 Output Total 400 500 Balance -300 90 Intake: IV 100 Sodium Chloride 0.9% 1, 100 000 ml @ 100 mls/hr IV . Q10H [facility] Rx#:[id number] Oral 590 Output: Urine 400 500 Other: Voiding Method Toilet Urinal EXAM; General: WDWN, male/female, NAD Head: Normocephalic, atraumatic. Eyes: Symmetric Ears: Symmetric. Hearing within normal limits. Mouth: Clear. Neck: Supple. Cardiac: Regular rate. Calves supple, non tender, no significant LEedema Lungs: Breathing comfortably on RA. Chest symmetric. Abdomen: Soft, nontender. Extremities: Arthritic changes consistent with age. Neurological: Alert and oriented x to self, year, place, not to month (saying yes/no) Speech is aphasic, answers yes/no consistently. Names 0/3, unable to repeat no ifs ands or buts. Cranial nerves: CN unable to fully assess as doesn't follow commands consistently. Does not follow 3 step commands consistently. Sensation: Intact and symmetrical limbs. Musculoskeletal: ROM WFL Moves bilateral UE/LE > 3+, left more than right. + Right Mondragon/Babinski Skin: Skin intact where visible to head, neck, and bilateral upper and lower extremities Psych: Calm, cooperative Results CBC & Chem 7: 09/10/23 05:14 09/10/23 05:22 Assessment and Plan Assessment: # Acute ischemic cerebrovascular accident in the distribution of the left middle cerebral artery including a left parietal temporal and partial left occipital lobe with a CT angiography showing paucity of the enhancement of the M3 branches of the middle cerebral arteries suggestive of acute thrombosis of the distal branches -PT/OT/DELIVERY RECRUITER -Fall precautions -ASA 300 mg rectally #severe expressive aphasia secondary to above # impaired gait and ADLs with fall secondary to above # Right side thorax pain secondary to fall # Right side neglect # Right homonymous hemianopsia #Atrial fibrillation, status post watchman device 5 years ago. # Comorbidities: Hypertension, Hyperlipidemia, BPH, Gout, ELIZABETH has Cpap at home, Coronary artery disease, History of multiple GI bleeds due to diverticulosis, tobacco use # Bowel/bladder -monitor for retention # DVT Proph -Lovenox QD # Pain Management -Currently on Morphine IV prn, recommend working on transition to oral pain relievers. # Your medical dx and mgt Goals: Modified Independent mobility and ADLS both basic and advanced; increased functional mobility/strength; increased balance, safety, endurance. Improvement in medical issues through your care. Barriers: speech, cognition, fall risk, vision changes, pain Discharge recommendation: Patient likely a good candidate for IPR pending OT and DELIVERY RECRUITER evaluations. He is highly motivated, was independent before and has good family support. Patient seen and examined by Dr Champagne, Note prepped by Mary Henderson PA-C
--- NOTE | 2023-09-11 10:12 | P.PN ---
Subjective Progress Note Date: 09/11/23 PROGRESS NOTE The patient is a 77-year-old male with a known history of CAD status post stenting of the LAD, history of chronic persistent atrial fibrillation with GI bleeding status post watchman device, history of hypertension, hyperlipidemia who presented with left sided weakness and was diagnosed with CVA. He is followed on a regular basis by Dr. Gongora. He has underwent an MPI in November 2019 that showed no evidence of stress-induced ischemia. He is awake, alert, following commands but has expressive aphasia. There was a question of pulmonary embolism but his ventilation perfusion scan showed low likelihood. He continues to be in atrial fibrillation but the rate is controlled. Since a dmission there is no evidence of ventricle tachycardia. He underwent an echocardiogram that showed a normal left ventricle size and systolic function with mild pulmonary hypertension and mild mitral and tricuspid regurgitation. Patient apparently had epistaxis with aspirin and Plavix. He has prior history of diverticulosis and recurrent GI bleeding. He underwent repeat cardiac catheterization in June 2020 that showed no significant progression of disease with patent stent of the LAD placed in 2017. September 10: The patient feels well, has some episodes of confusion but his expressive apha dane is better. He is in atrial fibrillation with controlled ventricular response. Hemodynamically he is stable. He has no evidence of ventricular tachycardia. His MRI showed evidence of acute and subacute CVA involving the left MCA. September 11: The patient continues to have some expressive aphasia yet better. He continues to be in atrial fibrillation with controlled ventricular response. He denies any chest discomfort, dizziness or palpitations. He denies any nausea or vomiting. Hemodynamically he is stable. Medications: Aspirin, Lipitor 20 mg daily, metoprolol 25 mg twice a day PHYSICAL EXAMINATION: Blood pressure 153/70 heart rate 85, mild expressive aphasia LUNGS: Clear to auscultation HEART: Irregular rate and rhythm, S1, S2. No S3. Systolic ejection murmur ABDOMEN: Soft, nontender, no organomegaly EXTREMETIES: No edema LAB: Potassium 4.2 Pending IMPRESSION: 1. Status post CVA with left MCA infarct with expressive aphasia 2. Persistent atrial fibrillation, status post watchman, not anticoagulated because of recurrent bleeding 3. History of CAD with no evidence of acute coronary syndrome 4. History of hypertension 5. History of hyperlipidemia PLAN: 1. Continue present therapy 2. Increase physical activity 3. Depending on his progress further recommendations will be made 4. Follow-up as an outpatient with Dr. Gongora 5. We will see him on as needed basis, please feel free to call us for any question. Objective - Vital Signs Vital signs: Vital Signs Temp 97.8 F 09/11/23 07:17 Pulse 83 09/11/23 07:17 Resp 18 09/11/23 07:17 BP 163/97 09/11/23 07:17 Pulse Ox 93 L 09/11/23 07:17 FiO2 Intake & Output 09/10/23 09/11/23 09/11/23 18:59 06:59 18:59 Intake Total 500 590 Output Total 550 500 Balance -50 90 Intake: IV 500 Sodium Chloride 0.9% 1, 500 000 ml @ 100 mls/hr IV . Q10H [facility] Rx#:[id number] Oral 590 Output: Urine 550 500 Other: Voiding Method Urinal Toilet Urinal # Voids 1 # Bowel Movements 1 - Labs CBC & Chem 7: 09/10/23 05:14 09/10/23 05:22
[2023-09-11] MEDS: ASPIRIN 300 MG SUPP RECTAL SCH (13:52)
[2023-09-11] MEDS: ASPIRIN 325 MG TAB PO SCH (14:56)
[2023-09-11] MEDS: ZOLPIDEM 5 MG TAB PO SCH (21:03)
[2023-09-11] MEDS: ATORVASTATIN 40 MG TAB PO SCH (21:04)
[2023-09-12] MEDS: MORPHINE SULFATE 2 MG/ML SYRINGE IV PRN ×2 (01:01→05:45)
[2023-09-12] MEDS: allopurinoL 100 MG TAB PO SCH (08:46)
[2023-09-12] MEDS: ASPIRIN 325 MG TAB PO SCH (08:46)
[2023-09-12] MEDS: PANTOPRAZOLE 40 MG/10 ML VIAL IVP SCH ×2 (08:46→20:35)
[2023-09-12] MEDS: METOPROLOL TARTRATE 25 MG TAB PO SCH ×2 (08:46→20:34)
[2023-09-12] MEDS: ENOXAPARIN 40 MG/0.4 ML SYRINGE SQ SCH (08:46)
[2023-09-12] MEDS ORDERED: traMADol 50 MG TAB PO PRN (08:57)
--- NOTE | 2023-09-12 17:16 | P.PN ---
Subjective Progress Note Date: 09/12/23 Principal diagnosis: CVA Patient is a 77-year-old right-handed male who lives with his in a single story home with 3 GEOVANY. Prior to admission, he was independent with mobility and ADLs. He has good support from his . Patient presented to the hospital on 09/08/23 for acute stroke symptoms. Patiet reportedly told his he did not sleep well and chose not to wear his CPAP the night before. When he was in the shower he wa talking "gibberish" and not makying sense. His ramon him to the hospital.He did have a fall in the parking lot on his right side while getting into the hospital, and since has been complaining of some right-sided chest pain. No fractures noted on the x- ray. Vital signs on arrival blood pressure 159/78, pulse rate 88, temperature 98.0. Blood pressure shows normal CBC, INR 1.4, PTT is normal, electrolytes are normal, BUN 20, creatinine 1.28. AST is 67, ALT 58, troponin negative, UA negative with some hematuria. CT head revealed findings highly suggestive of acute ischemic changes involving the left parietal, temporal and possibly a small portion of the left occipital lobe with no midline shift or acute hemorrhage. Chest x-ray revealed correlate for CHF favored over interstitial pneumonia. EKG shows atrial fibrillation. Venous Doppler negative for DVT bilaterally. In the ER, patient was evaluated by the ED staff. Patient's NIH stroke scale was 5.He was determined not a candidate for TPA. Also not a candidate for any neurological intervention. Patient has history of atrial fibrillation diagnosed 6 or 7 years ago. He underwent watchman device 5 years ago in [facility]. He was placed on aspirin, but he developed severe GI bleed 6-7 different times. One time his hemoglobin went down from 13-4, Therefore he is not on any antiplatelets. Patient has history of essential tremor. MRI brain recommended. 2 D echo with EF 55-60 %. CTA head and neck reviewed. Patient's symptoms appeared to get worse in the ER, plavix was changed to ASA 300 mg rectally everyday. MRI brain confirmed left MCA territory infarct. He had a VQ scan which was negative for PE. Patient was followed by neurology, cardiology, pulmonology and hospitalist. PM&R consulted for rehab recommendations. Patient is pending speech and OT evaluations, transfers supervision, gait min assist 40 ft hand held. Answers yes/no relatively consistently. Notes can be SOB at times, had some CP; denies other pain complaints. 09/12/23: Patient found resting in bed with family at bedside. patient denies CP, SOB and abdominal pain. Patient reports bilat rib pain. Patient and family agree that patient would benefit from IPR at discharge. patient is looking forward to working with therapy, gaining back strength and endurance and returning home to his . Therapy progress: requiring max assist for bathing, max assist LB dressing, mod independent eating, max ssist toileting, min assist toileting transfers, ambulating 180 feet with 2ww min assist GENERAL INSPECTOR noting moderate wernickes aphasia Objective - Vital Signs Vital signs: Vital Signs Temp 97.3 F L 09/12/23 13:35 Pulse 77 09/12/23 15:24 Resp 28 H 09/12/23 15:24 BP 164/82 09/12/23 15:24 Pulse Ox 95 09/12/23 15:24 FiO2 Intake & Output 09/11/23 09/12/23 09/12/23 18:59 06:59 18:59 Intake Total 240 Output Total 100 200 Balance -100 40 Intake: Oral 240 Output: Urine 100 200 Other: Voiding Method Toilet Urinal # Voids 1 1 1 # Bowel Movements 1 - Exam EXAM; General: WDWN, male, in bed with HOB elevated, family at bedside, NAD Head: Normocephalic, atraumatic. Eyes: Symmetric Ears: Symmetric. Hearing within normal limits. Mouth: Clear. Neck: Supple. Cardiac: no signs of cardiac distress noted. Calves supple, non tender, no significant LE edema Lungs: Breathing comfortably on RA. Chest symmetric. Abdomen: Soft, nontender. Extremities: Arthritic changes consistent with age. Neurological: Alert and oriented x to self, year, place, not to month (assessed with yes/no questions) Speech is aphasic, answers yes/no consistently. Does not follow 3 step commands consistently. Musculoskeletal: ROM WFL Moves bilateral UE/LE > 3+, left more than right. + Right Mondragon/Babinski Skin: Skin intact where visible to head, neck, and bilateral upper and lower extremities EXCEPT: PIV Psych: Calm, cooperative - Labs CBC & Chem 7: 09/10/23 05:14 09/10/23 05:22 Assessment and Plan Assessment: # Acute ischemic cerebrovascular accident in the distribution of the left middle cerebral artery including a left parietal temporal and partial left occipital lobe with a CT angiography showing paucity of the enhancement of the M3 branches of the middle cerebral arteries suggestive of acute thrombosis of the distal branches -PT/OT/GENERAL INSPECTOR -Fall precautions -ASA 325 mg daily #severe expressive aphasia secondary to above -GENERAL INSPECTOR # impaired gait and ADLs with fall secondary to above # Right side thorax pain secondary to fall # Right side neglect # Right homonymous hemianopsia #Atrial fibrillation, status post watchman device 5 years ago. # Comorbidities: Hypertension, Hyperlipidemia, BPH, Gout, ELIZABETH has Cpap at home, Coronary artery disease, History of multiple GI bleeds due to diverticulosis, tobacco use # Bowel/bladder -monitor for retention # DVT Proph -Lovenox QD # Pain Management -Currently on Morphine IV prn, recommend working on transition to oral pain relievers. # Your medical dx and mgt Goals: Modified Independent mobility and ADLS both basic and advanced; increased functional mobility/strength; increased balance, safety, endurance. Improvement in medical issues through your care. Barriers: speech, cognition, fall risk, vision changes, pain Discharge recommendation: IPR at discharge. He has rehabilitation needs. He is highly motivated, was independent before and has good family support. Patient seen and examined in coordination with Dr. Lowe
--- NOTE | 2023-09-12 17:38 | P.PN ---
Subjective Progress Note Date: 09/12/23 I'm seeing the patient for the first time during this admission. Seem to the patient that presented with severe expressive aphasia. No IV TPA was given since he was outside the window. MRI the brain showed left MCA stroke. Patient was started on aspirin daily. According to the patient daughter was at bedside and she stated the patient has history of multiple GI bleeds and were severe bleeds in the past. Even when he was in aspirin in the past he had nasal bleeding. Has history of atrial fib wasn't had a watchman device about 5 years ago. He was on any antiplatelet prior to this and was not on anticoagulation prior to his recent stroke. His daughter feels his speech is improving. Please refer to Dr. Romero and Nirmala's note for further details. Objective - Vital Signs Vital signs: Vital Signs Temp 97.3 F L 09/12/23 13:35 Pulse 77 09/12/23 15:24 Resp 28 H 09/12/23 15:24 BP 164/82 09/12/23 15:24 Pulse Ox 95 09/12/23 15:24 FiO2 Intake & Output 09/11/23 09/12/23 09/12/23 18:59 06:59 18:59 Intake Total 240 Output Total 100 200 Balance -100 40 Intake: Oral 240 Output: Urine 100 200 Other: Voiding Method Toilet Urinal # Voids 1 1 1 # Bowel Movements 1 - Exam General: Lying in bed and is not in acute distress. Neuro: Patient has moderate to severe expressive aphasia. Pupils are round, equal, and reactive to light. Visual field are full to confrontation. No facial weakness. No facial weakness. No dysarthria. Motor: Moving all extremities above gravity equally. - Labs CBC & Chem 7: 09/10/23 05:14 09/10/23 05:22 Assessment and Plan Assessment: Acute ischemic stroke over the left MCA, with severe expressive aphasia. Patient was not a candidate for TPA, because he came outside the window for TPA. Also that his computed tomography scan was positive for moderate size CVA, indicative of high risk of hemorrhagic conversion. * Atrial fibrillation, status post watchman device 5 years ago. * Hypertension * Hyperlipidemia * Coronary artery disease * History of multiple GI bleeds due to diverticulosis * Abdominal pain, poss. urinary retention vs constipation vs rib fracture Plan: * MRI of the brain without contrast-confirms known LMCA infarct. * 2-D echo revealed moderately increased left atrial diameter. Left-ventricular ejection fraction is 55-60%. Normal left ventricular cavity. Dilated right ventricle. Mild MR. * CTA neck showed: Unable to exclude incidental right upper lobe segmental branch pulmonary embolism. Possible moderate stenosis origin of the left vertebral artery. The common and internal carotid arteries appear widely patent. * CTA of the head showed no large vessel intracranial arterial occlusion, significant stenosis or aneurysm. On axial images, there is some paucity in the enhancement of the M3 branches of the left MCA laterally. This may be due to distal vessel thrombosis. * Patient was not on antiplatelets prior to this. Was started on ASA 325mg daily and I agree with Dr. Romero the benefit outweigh the risk. I spoke with the patient's, his over the phone and his daughter was at bedside regarding that he was started on aspirin and there where there is a risk of a bleed. They want to hold off dual antiplatelet because of risk of GI bleed especially with his history of multiple significant GI bleed. I am concerned that the even though he had a watchman device there is a concern possibly he continues to have cardioembolic stroke. I will hold off by use of anticoagulation especially with his history of GI bleeds and the family is in agreement. Unsure if he needs cardiac ablation to see had a stroke even with a watchman device. I highly recommended the patient follow-up with a car repairman as outpatient for further recommendation. * Patient is on Lipitor 40 mg daily at bedtime * PT, OT and HANDBAG FRAMER are consulted. Inpatient rehab is consulted and I spoke with the cafe team member from the inpatient rehab and they stated that they have accepted the patient * Continue neuro checks * Cardiac monitoring * Upon discharge recommend the patient to follow-up with a neurologist as an outpatient within 2 weeks * For DVT prophylaxis the patient is on Lovenox The plan was discussed with the patient, his daughter was at bedside and his via phone. Otherwise no additional neurological workup. Time with Patient: Less than 30
[2023-09-12] MEDS: ZOLPIDEM 5 MG TAB PO SCH (20:34)
[2023-09-12] MEDS: ATORVASTATIN 40 MG TAB PO SCH (20:34)
[2023-09-13] MEDS: MORPHINE SULFATE 2 MG/ML SYRINGE IV PRN (00:46)
[2023-09-13] MEDS: ENOXAPARIN 40 MG/0.4 ML SYRINGE SQ SCH (09:25)
[2023-09-13] MEDS: allopurinoL 100 MG TAB PO SCH (09:25)
[2023-09-13] MEDS: ASPIRIN 325 MG TAB PO SCH (09:25)
[2023-09-13] MEDS: METOPROLOL TARTRATE 25 MG TAB PO SCH (09:25)
[2023-09-13] MEDS: PANTOPRAZOLE 40 MG/10 ML VIAL IVP SCH (09:25)
--- NOTE | 2023-09-13 13:00 | P.PN ---
Subjective Progress Note Date: 09/11/23 HISTORY OF PRESENT ILLNESS: This is a 77-year-old male with a previous medical history significant for hypertension and hypertensive cardio vascular disease, hyperlipidemia, coronary artery disease status post PCI of the LAD 06/01/2018, gout, insomnia, paroxysmal atrial fibrillation status post watchman device placement after he had suffered from GI bleed, this was placed on 09/08/2017, GERD, patient was in his usual state of health until about yesterday at around 10:00 last night when he become more agitated and the patient did not want to wear his CPAP, initially he commandant went to bed, and woke up in the morning and he could not see any word according to his he was having garbled speech, so his brought him in the car and drove him to the emergency department at [facility], on his way into the ER he stumbled on his way and he fell and hit the side of his face, he was helped into the ER, had a computed tomography scan of the brain that did show evidence of left parietal, temporal and partial occipital lobe ischemic stroke, patient was placed on clopidogrel 75 mg orally 1, then he underwent CT angiography of the carotid artery and of the brain was not able to exclude a possible tumor embolus in the right upper lobe subsegmental branches, also there was a stenosis moderate stenosis of the left vertebral artery the common and bilateral internal carotid arteries were patent, there was also a paucity of the enhancement at the M3 branches of the left middle cerebral artery suggestive of distal vessel thrombosis, after discussing the situation with the ER physician as well as the neurology was admitted through the patient to be treated medically and he is not abnormal for intervention at this point in time, patient will be admitted to intensive care unit, he will be going for a VQ scan for evaluation of possible pulmonary embolism, continue aggressive medical therapy with neuro check around the clock. 09/11: VQ scan is low probability for pulmonary embolus. Heparin drip was discontinued. Patient states that he is not feeling good. He doesn't want to be here in the hospital. His vision is better speech is better as well as swallowing. He is complaining of rib pain. Patient is not eating very much. Discussed discharge planning and PT has recommended rehab. Consult added for inpatient rehab evaluation. He remains afebrile, heart rate 83, blood pressure 163/97, pulse ox 93% on room air. REVIEW OF SYSTEMS: Constitutional: No documented fever, no chills, no night sweats. No weight change. No weakness, fatigue or lethargy. No daytime sleepiness. HEENT: No headache. No blurred vision or double vision, no loss of vision. No loss of Hearing, no ringing in the ears, no dizziness. No nasal drainage or congestion. No epistaxis. No sore throat. Lungs: No shortness of breath, no cough, no sputum production. No wheezing. Reports dyspnea with activity. Cardiovascular: No chest pain, no lower extremity edema. No palpitations. No paroxysmal nocturnal dyspnea. No orthopnea. No lightheadedness or dizziness. No syncopal episodes. Abdominal: Reports no abdominal pain. No nausea, vomiting. No diarrhea. No constipation. No bloody or tarry stools reports loss of appetite. Genitourinary: No dysuria, increased frequency, urgency. No urinary retention. Musculoskeletal: No myalgias. No muscle weakness, no gait dysfunction, no frequent falls. No back pain. No neck pain. Integumentary: No wounds, no lesions. No rash or pruritus. No unusual bruising. No change in hair or nails. Neurologic: expressive aphasia. No facial droop. No change in mentation. No head injury. No headache. No paralysis. No paresthesia, mild pronator drift Psychiatric: No depression. No anxiety. No mood swings. Endocrine: No abnormal blood sugars. No weight change. PHYSICAL EXAMINATION: General: 77-year-old male sitting up in bed. To be a bit confused, with trouble finding the words. HEENT: Head is atraumatic, normocephalic, pupils were equal round reactive to light and recommendation, extraocular muscle movement were intact, sclera nonicteric, conjunctivae were pale, mucous membranes of the mouth are somewhat dry. Neck: Supple, no JVP, normal carotid upstroke bilaterally, no lymphadenopathy. Chest: Decreased breath sounds at the bases, few rhonchi, no expiratory wheezes, no chest wall tenderness, no intercostal retractions. Heart: First heart sound is normal, second heart sound is normal there is BRIAN 2/6 located at the left sternal border Abdomen: Soft, nontender, nondistended, positive bowel sounds. Extremities: There is no edema no calf tenderness DP +2 bilaterally. Neurologic examination: Patient is awake alert and oriented X1 , she does appear to have a expressive aphagia without significant weakness in both lower extremities, for pronator drift, nozgnr-[id number] and koey-nl-yipw sign were negative due to and reflux is were normal, Babinski was extensor on the left. ASSESSMENT AND PLAN: 1. Acute ischemic cerebrovascular accident in the distribution of the left middle cerebral artery including a left parietal temporal and partial left occipital lobe with a CT angiography showing paucity of the enhancement of the M3 branches of the middle cerebral arteries suggestive of acute thrombosis of the distal branches neurology consult appreciated. Continue patient on Lipitor 40 mg at bedtime, aspirin 325 mg daily. Continue PT, OT, speech therapy. 2. Possible right upper lobe subsegmental branch pulmonary embolism ruled out by VQ scan 3. Hypertension and hypertensive cardiovascular disease hold off lisinopril for now, continue patient on metoprolol 25 mg orally 3 times every day, monitor the patient blood pressure very closely. 4. Mixed hyperlipidemia. Continue patient on atorvastatin 20 mg orally once every day, monitor the patient rhythm, keep LDL 55-70. 5. Idiopathic gout. Continue patient on allopurinol 100 mg orally once every day. 6. Vitamin D deficiency. Continue vitamin D3 2000 units once every day. 7. GERD with esophagitis. Continue PPI. 8. Insomnia. Continue Ambien and trazodone. 9. Obstructive sleep apnea. Continue patient on home CPAP. 10. Enlarged prostate. PSA is up-to-date. 11. Coronary artery disease status post PCI of the LAD continue patient on Plavix 75 mg once every day, continue metoprolol 25 mg orally 3 times every day, continue atorvastatin 20 mg once every day, consult cardiology patient has been under the care of Dr. Gongora. 12. Paroxysmal atrial fibrillation status post watchman device placement 10/05. Continue metoprolol monitor the patient very closely. 13 diverticulosis. Patient was scheduled to go for colonoscopy next week this would be placed on hold. 14. Prediabetes. Continue low-carb diet. Monitor the patient hemoglobin was he. 15. DVT prophylaxis. Heparin 5000 units subcutaneously every 12 hours. 16 GI prophylaxis. Continue patient on Protonix 40 mg once every day. 17. Patient is no code. Impression and plan of care have been directed as dictated by the signing ph ysician. Laurie Briggs nurse practitioner acting as scribe for signing physician. Objective - Vital Signs Vital signs: Vital Signs Temp 98.1 F 09/11/23 12:30 Pulse 74 09/11/23 12:30 Resp 18 09/11/23 12:30 BP 165/88 09/11/23 12:30 Pulse Ox 98 09/11/23 12:30 FiO2 Intake & Output 09/10/23 09/11/23 09/11/23 18:59 06:59 18:59 Intake Total 500 590 Output Total 550 500 Balance -50 90 Intake: IV 500 Sodium Chloride 0.9% 1, 500 000 ml @ 100 mls/hr IV . Q10H [facility] Rx#:[id number] Oral 590 Output: Urine 550 500 Other: Voiding Method Urinal Toilet Urinal # Voids 1 # Bowel Movements 1 - Labs CBC & Chem 7: 09/10/23 05:14 09/10/23 05:22
--- NOTE | 2023-09-13 13:04 | P.PN ---
Subjective Progress Note Date: 09/12/23 HISTORY OF PRESENT ILLNESS: This is a 77-year-old male with a previous medical history significant for hypertension and hypertensive cardio vascular disease, hyperlipidemia, coronary artery disease status post PCI of the LAD 06/01/2018, gout, insomnia, paroxysmal atrial fibrillation status post watchman device placement after he had suffered from GI bleed, this was placed on 09/08/2017, GERD, patient was in his usual state of health until about yesterday at around 10:00 last night when he become more agitated and the patient did not want to wear his CPAP, initially he commandant went to bed, and woke up in the morning and he could not see any word according to his he was having garbled speech, so his brought him in the car and drove him to the emergency department at [facility], on his way into the ER he stumbled on his way and he fell and hit the side of his face, he was helped into the ER, had a computed tomography scan of the brain that did show evidence of left parietal, temporal and partial occipital lobe ischemic stroke, patient was placed on clopidogrel 75 mg orally 1, then he underwent CT angiography of the carotid artery and of the brain was not able to exclude a possible tumor embolus in the right upper lobe subsegmental branches, also there was a stenosis moderate stenosis of the left vertebral artery the common and bilateral internal carotid arteries were patent, there was also a paucity of the enhancement at the M3 branches of the left middle cerebral artery suggestive of distal vessel thrombosis, after discussing the situation with the ER physician as well as the neurology was admitted through the patient to be treated medically and he is not abnormal for intervention at this point in time, patient will be admitted to intensive care unit, he will be going for a VQ scan for evaluation of possible pulmonary embolism, continue aggressive medical therapy with neuro check around the clock. 09/11: VQ scan is low probability for pulmonary embolus. Heparin drip was discontinued. Patient states that he is not feeling good. He doesn't want to be here in the hospital. His vision is better speech is better as well as swallowing. He is complaining of rib pain. Patient is not eating very much. Discussed discharge planning and PT has recommended rehab. Consult added for inpatient rehab evaluation. He remains afebrile, heart rate 83, blood pressure 163/97, pulse ox 93% on room air. 09/12: Patient states he is eating a little bit better. He has been seen by PT, OT, ST. He is currently on regular diet with nectar thick liquids as tolerated per speech therapy. He denies shortness of breath. Anticipate discharge in the next 24 hours to inpatient rehab if he is accepted. REVIEW OF SYSTEMS: Constitutional: No documented fever, no chills, no night sweats. No weight change. No weakness, fatigue or lethargy. No daytime sleepiness. HEENT: No headache. No blurred vision or double vision, no loss of vision. No loss of Hearing, no ringing in the ears, no dizziness. No nasal drainage or congestion. No epistaxis. No sore throat. Lungs: No shortness of breath, no cough, no sputum production. No wheezing. Reports dyspnea with activity. Cardiovascular: No chest pain, no lower extremity edema. No palpitations. No paroxysmal nocturnal dyspnea. No orthopnea. No lightheadedness or dizziness. No syncopal episodes. Abdominal: Reports no abdominal pain. No nausea, vomiting. No diarrhea. No constipation. No bloody or tarry stools reports loss of appetite. Genitourinary: No dysuria, increased frequency, urgency. No urinary retention. Musculoskeletal: No myalgias. No muscle weakness, no gait dysfunction, no frequent falls. No back pain. No neck pain. Integumentary: No wounds, no lesions. No rash or pruritus. No unusual bruising. No change in hair or nails. Neurologic: expressive aphasia. No facial droop. No change in mentation. No head injury. No headache. No paralysis. No paresthesia, mild pronator drift Psychiatric: No depression. No anxiety. No mood swings. Endocrine: No abnormal blood sugars. No weight change. PHYSICAL EXAMINATION: General: 77-year-old male sitting up in bed. To be a bit confused, with trouble finding the words. HEENT: Head is atraumatic, normocephalic, pupils were equal round reactive to light and recommendation, extraocular muscle movement were intact, sclera nonicteric, conjunctivae were pale, mucous membranes of the mouth are somewhat dry. Neck: Supple, no JVP, normal carotid upstroke bilaterally, no lymphadenopathy. Chest: Decreased breath sounds at the bases, few rhonchi, no expiratory wheezes, no chest wall tenderness, no intercostal retractions. Heart: First heart sound is normal, second heart sound is normal there is BRIAN 2/6 located at the left sternal border Abdomen: Soft, nontender, nondistended, positive bowel sounds. Extremities: There is no edema no calf tenderness DP +2 bilaterally. Neurologic examination: Patient is awake alert and oriented X1 , she does appear to have a expressive aphagia without significant weakness in both lower extremities, for pronator drift, uiylig-[id number]-hcjd and ngpp-ia-pcqt sign were negative due to and reflux is were normal, Babinski was extensor on the left. ASSESSMENT AND PLAN: 1. Acute ischemic cerebrovascular accident in the distribution of the left middle cerebral artery including a left parietal temporal and partial left occipital lobe with a CT angiography showing paucity of the enhancement of the M3 branches of the middle cerebral arteries suggestive of acute thrombosis of the distal branches neurology consult appreciated. Continue patient on Lipitor 40 mg at bedtime, aspirin 325 mg daily. Continue PT, OT, speech therapy. 2. Possible right upper lobe subsegmental branch pulmonary embolism ruled out by VQ scan 3. Hypertension and hypertensive cardiovascular disease hold off lisinopril for now, continue patient on metoprolol 25 mg orally 3 times every day, monitor the patient blood pressure very closely. 4. Mixed hyperlipidemia. Continue patient on atorvastatin 20 mg orally once every day, monitor the patient rhythm, keep LDL 55-70. 5. Idiopathic gout. Continue patient on allopurinol 100 mg orally once every day. 6. Vitamin D deficiency. Continue vitamin D3 2000 units once every day. 7. GERD with esophagitis. Continue PPI. 8. Insomnia. Continue Ambien and trazodone. 9. Obstructive sleep apnea. Continue patient on home CPAP. 10. Enlarged prostate. PSA is up-to-date. 11. Coronary artery disease status post PCI of the LAD continue patient on Plavix 75 mg once every day, continue metoprolol 25 mg orally 3 times every day, continue atorvastatin 20 mg once every day, consult cardiology patient has been under the care of Dr. Gongora. 12. Paroxysmal atrial fibrillation status post watchman device placement 10/05/2017. Continue metoprolol monitor the patient very closely. 13 diverticulosis. Patient was scheduled to go for colonoscopy next week this would be placed on hold. 14. Prediabetes. Continue low-carb diet. Monitor the patient hemoglobin was he. 15. DVT prophylaxis. Lovenox. 16 GI prophylaxis. Continue patient on Protonix 40 mg once every day. 17. Patient is no code. Impression and plan of care have been directed as dictated by the signing physician. Laurie Briggs nurse practitioner acting as scribe for signing physician. Objective - Vital Signs Vital signs: Vital Signs Temp 98.2 F 09/12/23 07:29 Pulse 71 09/12/23 07:29 Resp 19 09/12/23 07:29 BP 177/72 09/12/23 07:29 Pulse Ox 93 L 09/12/23 07:29 FiO2 Intake & Output 09/11/23 09/12/23 09/12/23 18:59 06:59 18:59 Intake Total 240 Output Total 100 200 Balance -100 40 Intake: Oral 240 Output: Urine 100 200 Other: Voiding Method Toilet Urinal # Voids 1 1 # Bowel Movements 1 - Labs CBC & Chem 7: 09/10/23 05:14 09/10/23 05:22
--- NOTE | 2023-09-13 13:09 | P.DS ---
Providers Date of admission: 09/08/23 11:19 Expected date of discharge: 09/13/23 Attending physician: German Naranjo Consults: 09/08/23 11:18 Consult Physician Stat Consulting Provider: Zbigniew Celeste Consult Reason/Comments: icu care, possible pe Do you want consulting provider notified?: Yes 09/08/23 11:19 Consult Physician Urgent Consulting Provider: Heide Romero Consult Reason/Comments: CVA Do you want consulting provider notified?: Yes 09/10/23 13:18 Consult Physician Routine Consulting Provider: Gualberto Cabrera Consult Reason/Comments: Rehab Do you want consulting provider notified?: Yes Primary care physician: German Naranjo Hospital Course: HISTORY OF PRESENT ILLNESS: This is a 77-year-old male with a previous medical history significant for hypertension and hypertensive cardio vascular disease, hyperlipidemia, coronary artery disease status post PCI of the LAD 06/01/2018, gout, insomnia, paroxysmal atrial fibrillation status post watchman device placement after he had suffered from GI bleed, this was placed on 09/08/2017, GERD, patient was in his usual state of health until about yesterday at around 10:00 last night when he become more agitated and the patient did not want to wear his CPAP, initially he commandant went to bed, and woke up in the morning and he could not see any word according to his he was having garbled speech, so his brought him in the car and drove him to the emergency department at [facility], on his way into the ER he stumbled on his way and he fell and hit the side of his face, he was helped into the ER, had a computed tomography scan of the brain that did show evidence of left parietal, temporal and partial occipital lobe ischemic stroke, patient was placed on clopidogrel 75 mg orally 1, then he underwent CT angiography of the carotid artery and of the brain was not able to exclude a possible tumor embolus in the right upper lobe subsegmental branches, also there was a stenosis moderate stenosis of the left vertebral artery the common and bilateral internal carotid arteries were patent, there was also a paucity of the enhancement at the M3 branches of the left middle cerebral artery suggestive of distal vessel thrombosis, after discussing the situation with the ER physician as well as the neurology was admitted through the patient to be treated medically and he is not abnormal for intervention at this point in time, patient will be admitted to intensive care unit, he will be going for a VQ scan for evaluation of possible pulmonary embolism, continue aggressive medical the rapy with neuro check around the clock. 09/11: VQ scan is low probability for pulmonary embolus. Heparin drip was discontinued. Patient states that he is not feeling good. He doesn't want to be here in the hospital. His vision is better speech is better as well as swallowing. He is complaining of rib pain. Patient is not eating very much. Discussed discharge planning and PT has recommended rehab. Consult added for inpatient rehab evaluation. He remains afebrile, heart rate 83, blood pressure 163/97, pulse ox 93% on room air. 09/12: Patient states he is eating a little bit better. He has been seen by PT, OT, ST. He is currently on regular diet with nectar thick liquids as tolerated per speech therapy. He denies shortness of breath. Anticipate discharge in the next 24 hours to inpatient rehab if he is accepted. 09/13: Patient has been accepted at [facility] for inpatient rehab. Blood pressure is 151/82, heart rate in the 50s to 70s. Pulse ox 96% on room air. He has been afebrile. Patient will be resumed on his lisinopril hydrochlorothiazide. Patient will be discharged to rehab once all arrangements are completed. DISCHARGE DIAGNOSES: 1. Acute ischemic cerebrovascular accident in the distribution of the left middle cerebral artery including a left parietal temporal and partial left occipital lobe with a CT angiography showing paucity of the enhancement of the M3 branches of the middle cerebral arteries suggestive of acute thrombosis of the distal branches. 2. Possible right upper lobe subsegmental branch pulmonary embolism ruled out by VQ scan 3. Hypertension and hypertensive cardiovascular disease. 4. Mixed hyperlipidemia. 5. Idiopathic gout. 6. Vitamin D deficiency. 7. GERD with esophagitis. 8. Insomnia. 9. Obstructive sleep apnea. 10. Enlarged prostate. 11. Coronary artery disease status post PCI of the LAD under the care of Dr. Gongora. 12. Paroxysmal atrial fibrillation status post watchman device placement 10/05/2017. 13. Diverticulosis. 14. Prediabetes. Continue low-carb diet. DISCHARGE PLAN: IPR Greater than 35 minutes was utilized and coordinating patient's discharge. Impression and plan of care have been directed as dictated by the signing physician. Laurie Briggs nurse practitioner acting as scribe for signing physician. Patient Condition at Discharge: Stable Plan - Discharge Summary Discharge Rx Participant: Yes New Discharge Prescriptions: No Action Zolpidem [Ambien] 10 mg PO HS Metoprolol Tartrate [Lopressor] 25 mg PO BID Nitroglycerin Sl Tabs [Nitrostat] 0.4 mg SUBLINGUAL Q5M PRN #30 tab PRN Reason: Chest Pain Lisinopril-Hctz 20-25 mg [Zestoretic 20-25] 1 tab PO DAILY Rosuvastatin [Crestor] 10 mg PO HS Pantoprazole [Protonix] 40 mg PO HS allopurinoL 100 mg PO DAILY Discharge Medication List Zolpidem [Ambien] 10 mg PO HS 02/26/17 [History] Metoprolol Tartrate [Lopressor] 25 mg PO BID 06/01/18 [History] Nitroglycerin Sl Tabs [Nitrostat] 0.4 mg SUBLINGUAL Q5M PRN #30 tab 06/02/18 [Rx] Lisinopril-Hctz 20-25 mg [Zestoretic 20-25] 1 tab PO DAILY 06/24/20 [History] Pantoprazole [Protonix] 40 mg PO HS 09/08/23 [History] Rosuvastatin [Crestor] 10 mg PO HS 09/08/23 [History] allopurinoL 100 mg PO DAILY 09/08/23 [History] Follow up Appointment(s)/Referral(s): German Naranjo MD [Primary Care Provider] - 1-2 days Patient Instructions/Handouts: Ischemic Stroke (GEN)
[2023-09-13] MEDS ORDERED: LISINOPRIL-HCTZ 20-25 MG 1 EACH TAB PO SCH (13:15)
[2023-09-13 14:02] VITALS: BP 140/82; PULSE 64; RESP 28; TEMP 97.4
== END 2023-09-13 14:44 | DRG 65 ==
LOC: EC 09:08 → 2SICU 11:19 → 5NMEDONC 09-10 17:45
PROVIDERS: ADMIT Internal Medicine; ATTEND Internal Medicine
DX: I63.512 Cerebral infarction due to unspecified occlusion or stenosis of left middle cerebral artery (principal); G81.94 Hemiplegia, unspecified affecting left nondominant side; I48.21 Permanent atrial fibrillation; I27.20 Pulmonary hypertension, unspecified; R41.4 Neurologic neglect syndrome; H53.461 Homonymous bilateral field defects, right side; R47.01 Aphasia; I11.9 Hypertensive heart disease without heart failure; I65.02 Occlusion and stenosis of left vertebral artery; I08.1 Rheumatic disorders of both mitral and tricuspid valves; I25.10 Atherosclerotic heart disease of native coronary artery without angina pectoris; K21.00 Gastro-esophageal reflux disease with esophagitis, without bleeding; G47.00 Insomnia, unspecified; Z66 Do not resuscitate; E55.9 Vitamin D deficiency, unspecified; N40.0 Benign prostatic hyperplasia without lower urinary tract symptoms; G47.33 Obstructive sleep apnea (adult) (pediatric); E78.2 Mixed hyperlipidemia; M10.00 Idiopathic gout, unspecified site; K57.90 Diverticulosis of intestine, part unspecified, without perforation or abscess without bleeding; G25.0 Essential tremor; R73.03 Prediabetes; R31.9 Hematuria, unspecified; R29.705 NIHSS score 5; W01.0XXA Fall on same level from slipping, tripping and stumbling without subsequent striking against object, initial encounter; Z96.642 Presence of left artificial hip joint; Z96.651 Presence of right artificial knee joint; Y92.481 Parking lot as the place of occurrence of the external cause; Z95.5 Presence of coronary angioplasty implant and graft; Z95.818 Presence of other cardiac implants and grafts; Z87.19 Personal history of other diseases of the digestive system; Z88.6 Allergy status to analgesic agent; Z79.899 Other long term (current) drug therapy; Z82.49 Family history of ischemic heart disease and other diseases of the circulatory system; Z82.3 Family history of stroke; Z81.2 Family history of tobacco abuse and dependence
CPT/HCPCS: 36415; 70450; 70496; 70498; 70551; 71046; 74018; 78582; 80048; 80053; 80061; 81001; 82550; 83036; 83735; 83880; 84484; 85025; 85027; 85379; 85610; 85730; 93005; 93306; 93970; 99291